=== PATIENT | female | born 1955 | race Caucasian/White ===

== ENCOUNTER 2018-11-02 16:53 | Inpatient (IN) | payer MEDICAID ==
[~2018-11-02] VITALS: Ht 154.9 cm; Wt 68.5 kg
--- NOTE | 2018-11-02 17:26 | ERD ---
ER Documentation Chief Complaint Chief Complaint chest pain & dizziness since monday HPI 63-year-old woman complaining of intermittent sharp chest pain shortness of breath, dyspnea on exertion for the last 4-5 days she also feels dizzy. She denies blood per rectum or melena, no fevers or chills, no cough, no headache or blurry vision. ROS All systems reviewed and are negative except as per history of present illness. Medications Home Meds No Active Prescriptions or Reported Meds Allergies Allergies: Coded Allergies: No Known Allergy (Unverified , 11/02/18) FmHx Family History: No diabetes Physical Exam Vitals Vital Signs Date Temp Pulse Resp B/P (MAP) Pulse Ox O2 O2 Flow FiO2 Time Delivery Rate 11/02/18 91 20 125/84 99 Nasal 2.0 18:48 (98) Cannula 11/02/18 89 23 123/91 98 Nasal 2.0 18:08 (102) Cannula 11/02/18 141 18 117/95 100 Room Air 17:44 (102) 11/02/18 98.2 161 18 155/94 98 17:01 (114) Physical Exam GENERAL: Well-developed, appears dyspneic, afebrile HEENT: Pale conjunctive a, no cervical spine tenderness or step-off deformities, no goiter, no jaundice or icterus, extraocular movements intact without pain. No submandibular induration, and no pharyngeal erythema NEURO: Alert and oriented 3, cranial nerves II through XII intact bilaterally, pupils equal round reactive to light, no focal deficits or facial asymmetry, sensation intact distally Strength 5/5 in upper and lower extremities bilaterally CARDIAC: Tachycardic, no murmurs rubs or gallops LUNGS: Poor breath sounds bilaterally, no crackles wheezing or stridor ABDOMEN: Soft nontender, no guarding, no rigidity, no rebound, no psoas sign no obturator sign. Normoactive bowel sounds SKIN: Warm and dry to touch, no abrasions, contusions, or hematomas, no lacerations, no ecchymosis, no target lesions, and without ulcers EXTREMITIES: No clubbing cyanosis, 1+ pitting edema in the lower extremities bilaterally, calves are bilaterally symmetrical, no Homans sign, no popliteal cord sign. Distal pulses equal and bilateral PSYCH: Normal affect without agitation or irritability Result Diagram: 4/5/19 1753 4/5/19 1753 Results 24 hrs Laboratory Tests Test 11/02/18 17:53 White Blood Count 8.5 10^3/ul Red Blood Count 3.03 10^6/ul Hemoglobin 8.6 g/dl Hematocrit 26.8 % Mean Corpuscular Volume 88.4 fl Mean Corpuscular Hemoglobin 28.4 pg Mean Corpuscular Hemoglobin Concent 32.1 g/dl Red Cell Distribution Width 14.6 % Platelet Count 192 10^3/UL Mean Platelet Volume 12.4 fl Immature Granulocytes % 0.500 % Neutrophils % 63.8 % Lymphocytes % 27.9 % Monocytes % 6.4 % Eosinophils % 0.9 % Basophils % 0.5 % Nucleated Red Blood Cells % 0.4 /100WBC Immature Granulocytes # 0.040 10^3/ul Neutrophils # 5.4 10^3/ul Lymphocytes # 2.4 10^3/ul Monocytes # 0.5 10^3/ul Eosinophils # 0.1 10^3/ul Basophils # 0.0 10^3/ul Nucleated Red Blood Cells # 0.0 10^3/ul Sodium Level 139 mmol/L Potassium Level 4.0 mmol/L Chloride Level 104 mmol/L Carbon Dioxide Level 25 mmol/L Anion Gap 10 Blood Urea Nitrogen 11 mg/dl Creatinine 0.61 mg/dl Est Glomerular Filtrat Rate mL/min > 60 mL/min Glucose Level 111 mg/dl Hemoglobin A1c 5.8 % Calcium Level 8.7 mg/dl Iron Level 36 ug/dl Total Iron Binding Capacity 362 ug/dl Percent Iron Saturation 10 % SAT Total Bilirubin 0.1 mg/dl Direct Bilirubin 0.00 mg/dl Indirect Bilirubin 0.1 mg/dl Aspartate Amino Transf (AST/SGOT) 52 IU/L Alanine Aminotransferase (ALT/SGPT) 45 IU/L Alkaline Phosphatase 75 IU/L Troponin I 0.020 ng/ml B-Type Natriuretic Peptide 3020 PG/ML Total Protein 6.8 g/dl Albumin 3.9 g/dl Globulin 2.90 g/dl Albumin/Globulin Ratio 1.34 Lipase 140 U/L Thyroid Stimulating Hormone (TSH) 2.720 MIU/L Free Thyroxine 1.13 ng/dl Free Triiodothyronine (T3) pg/mL 4.29 pg/ml Current Medications Medications Dose Sig/Tavia Start Time Status Last (Trade) Ordered Route PRN Stop Time Admin Dose Reason Admin Diltiazem 20 mg ONCE ONCE 11/02/18 DC 11/02/18 HCl IV 18:00 11/02/18 17:56 (Cardizem Iv) 18:01 Aspirin 162 mg ONCE ONCE 11/02/18 DC 11/02/18 (Aspirin) PO 18:00 11/02/18 17:57 18:01 Procedures/MDM IV line was established 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 Patient was afebrile EKG performed, read by me revealed an atrial fibrillation with rapid ventricular rate at 147 bpm, normal axis, narrow QRS complex, no concerning ST elevations or depressions noted I administered diltiazem 20 mg IV x1. EKG performed after diltiazem therapy revealed an atrial fibrillation rate controlled at 89 bpm, normal axis, narrow QRS complex, no concerning ST elevations or depressions noted 1 view chest x-ray performed, read by me revealed cardiomegaly and bilateral pulmonary edema, no acute infiltrates, no pneumothorax. CBC revealed anemia with a hemoglobin of 8.6, electrolytes are unremarkable, liver function tests normal, troponin negative, BNP elevated at 3000 I administered aspirin 162 mg p.o. for cardioprotective measures and furosemide 40 mg IV for CHF. I also ordered transfusion 1 unit PRBC IV over 2 hours for symptomatic anemia Critical Care: Time: 50 minutes, this was time separate from other billable procedures. Treatments/Evaluations: Close monitoring and treatment of unstable vital signs, cardiorespiratory, and neurologic status, while maintaining tight balance of fluid, respiratory, and cardiac interventions. Patient admitted to telemetry setting for continued medical management and cardiology consultation. Urinalysis was equivocal and I will defer to the admitting team to initiate antibiotics if indicated although patient has no genitourinary complaints. Departure Diagnosis: Primary Impression: Atrial fibrillation with RVR Additional Impressions: Symptomatic anemia CHF (congestive heart failure) Heart failure type: systolic Heart failure chronicity: acute Qualified Codes: I50.21 - Acute systolic (congestive) heart failure Condition: Serious BRITNEY MARQUEZ MD Nov 02, 2018 17:26
[2018-11-02] MEDS ORDERED: ASPIRIN 81 MG TAB PO ONE (18:00)
[2018-11-02] MEDS ORDERED: DILTIAZEM 25 MG INJ IV ONE (18:00)
--- NOTE | 2018-11-02 19:55 | HP ---
Date/Time of Note Date/Time of Note DATE: 11/02/18 TIME: 19:55 Assessment/Plan VTE Prophylaxis SCD applied (from Nsg): Yes Pharmacological prophylaxis: NA/contraindicated Pharm contraindication: low risk/ambulating Lines/Catheters IV Catheter Type (from Nrsg): Saline Lock Assessment/Plan Hospital Course This is a 63-year female being admitted to the telemetry floor for: #1 rapid A. fib with RVR, new onset: Etiology unknown at the current time. Will check TSH, hemoglobin A 1C, lipid panel, ethanol level and urine drug screen until patient denies any history of this. We will get an echocardiogram to assess heart morphology. PRN Lopressor 2.5 IV for heart rate greater than 115. Chadsvasc score 1: no asa, given anemia, but will defer to cardiology for recs. #2 Symptomatic anemia: Hemoglobin is 8.6. She did receive a unit of 1 unit of PRBCs in the ED. Denies bleeding. Will check iron stores #3 hyperlipidemia, check lipid panel #4 elevated BNP: Approximately 3000. Mild congestion on x-ray, will give her a dose of Lasix after blood transfusion. Check echocardiogram consult cardiology #5 DVT GI prophylaxis: SCDs, no GI prophylaxis indicated Further treatment strategy will be implemented as per the clinical course Result Diagram: 11/02/18 1753 11/02/18 1753 Results 24hrs Laboratory Tests Test 11/02/18 17:53 White Blood Count 8.5 Red Blood Count 3.03 L Hemoglobin 8.6 L Hematocrit 26.8 L Mean Corpuscular Volume 88.4 Mean Corpuscular Hemoglobin 28.4 L Mean Corpuscular Hemoglobin Concent 32.1 Red Cell Distribution Width 14.6 H Platelet Count 192 Mean Platelet Volume 12.4 H Immature Granulocytes % 0.500 H Neutrophils % 63.8 Lymphocytes % 27.9 Monocytes % 6.4 Eosinophils % 0.9 Basophils % 0.5 Nucleated Red Blood Cells % 0.4 H Immature Granulocytes # 0.040 H Neutrophils # 5.4 Lymphocytes # 2.4 Monocytes # 0.5 Eosinophils # 0.1 Basophils # 0.0 Nucleated Red Blood Cells # 0.0 Sodium Level 139 Potassium Level 4.0 Chloride Level 104 Carbon Dioxide Level 25 Anion Gap 10 Blood Urea Nitrogen 11 Creatinine 0.61 Est Glomerular Filtrat Rate mL/min > 60 Glucose Level 111 Calcium Level 8.7 Total Bilirubin 0.1 L Direct Bilirubin 0.00 Indirect Bilirubin 0.1 Aspartate Amino Transf (AST/SGOT) 52 H Alanine Aminotransferase (ALT/SGPT) 45 Alkaline Phosphatase 75 Troponin I 0.020 B-Type Natriuretic Peptide 3020 H Total Protein 6.8 Albumin 3.9 Globulin 2.90 Albumin/Globulin Ratio 1.34 Lipase 140 Thyroid Stimulating Hormone (TSH) 2.720 Free Thyroxine 1.13 Free Triiodothyronine (T3) pg/mL 4.29 HPI/ROS Admit Date/Time Admit Date/Time Hx of Present Illness Chief complaint: Dizziness, chest pain times 5 days This is a 63-year-old woman complaining of intermittent sharp chest pain shortness of breath, dyspnea on exertion for the last 4-5 days she also feels dizzy. Patient also reports that she had a near syncopal episode at home. She reports some palpitations as well. She denies blood per rectum or melena, no fevers or chills, no cough, no headache or blurry vision. Allergies: NKDA Medications: See RICHELLE STONE Const: As per HPI Eyes : No pain discharge or redness or change in visual acuity ENT: No pain, sore throat, congestion, congestion, dysphagia or discharge Respiratory: No shortness of breath, cough, sputum, wheezing, or pleuritic pain Cardiovascular: N as per HPI GI : no change in appetite, abdominal pain, nausea, vomiting, diarrhea, constipation, or change in the color his stool Genitourinary: No dysuria, hematuria, flank pain , discharge or CVA tenderness Musculoskeletal: No joint pain, back pain, neck pain, restricted range of motion in neck or joints Skin: No rash, bruising or hives Neuro: No headache, dizziness, syncope, seizure, focal weakness Endocrine: No polyuria, polydipsia, temperature intolerance Psych: No hallucination, depression, anxiety or suicidal ideation PMH/Family/Social Past Medical History hld Medications Current Medications IV Flush (NS 3 ml) 3 ml PER PROTOCOL IV ; Start 11/02/18 at 20:00 Ondansetron HCl (Zofran Inj) 4 mg Q6H PRN IV NAUSEA/VOMITING; Start 11/02/18 at 20:00 Nitroglycerin (Nitroglycerin (Sl Tab) 0.4 Mg) 1 tab Q5M PRN SL .CHEST PAIN; Start 11/02/18 at 20:00 Acetaminophen (Tylenol Tab) 650 mg Q6H PRN PO .PAIN 1-3 OR TEMP; Start 11/02/18 at 20:00 Docusate Sodium (Colace) 100 mg Q12H PRN PO .CONSTIPATION; Start 11/02/18 at 20:00 Magnesium Hydroxide (Milk Of Mag) 30 ml DAILY PRN PO .CONSTIPATION; Start 11/02/18 at 20:00 Famotidine (Pepcid) 20 mg Q12 PO ; Start 11/02/18 at 21:00 Furosemide (Lasix) 40 mg ONCE ONCE IV ; Start 11/02/18 at 20:00; Stop 11/02/18 at 20:01 Coded Allergies: No Known Drug Allergies (Verified Allergy, Unknown, 11/03/18) Past Surgical History x 2, lisa, Family History Significant Family History: no pertinent family hx Social History Alcohol Use: none Smoking Status: Never smoker Drug Use: none Exam/Review of Systems Vital Signs Vitals Vital Signs Date Temp Pulse Resp B/P (MAP) Pulse Ox O2 O2 Flow FiO2 Time Delivery Rate 11/02/18 91 20 125/84 99 Room Air 18:48 (98) 11/02/18 2.0 18:08 11/02/18 98.2 17:01 Exam Exam General: Patient currently lying in bed he does not appear to be in any acute distress but she does appear fatigued HEENT: Atraumatic, normocephalic. The pupils are equal, round and reactive. Extraocular motor are intact Neck: Supple with full range of motion. No rigidity or meningismus Chest: Nontender Lungs: Clear to auscultation bilaterally no crackles rales or wheezing Heart: Irregularly irregular, rate controlled Abdomen: Soft , nontender, nondistended , bowel sounds are present. No guarding no rebound tenderness , No masses or organomegaly. No costovertebral temporal angle mass Extremities: Normal to inspection, no edema no cyanosis Neurologic: Normal mental status, speech normal, cranial nerves II through XII are intact, motor and sensory are intact, Additional Comments EKG atrial fibrillation with rapid ventricular rate at 147 bpm, normal axis, narrow QRS complex, no concerning ST elevations or depressions noted PROCEDURE: XR Chest. CLINICAL INDICATION: Chest pain TECHNIQUE: Single frontal radiograph of the chest. COMPARISON: No prior FINDINGS: Prominence of the pulmonary vasculature suggestive of mild congestion. Mild peribronchial thickening suggestive of small airways disease. No pleural effusion. No pneumothorax. Mild cardiomegaly. IMPRESSION: Prominence of the pulmonary vasculature suggestive of mild congestion. Mild peribronchial thickening suggestive of small airways disease. RPTAT: AADD .Charles Palacio MD, MD Date Time Electronically viewed and signed by .Charles Palacio MD, MD on 11/02/2018 19:36 .B/ CC: BRITNEY MARQUEZ MD [id number] EMERITA SETH Nov 02, 2018 19:55
[2018-11-02] MEDS ORDERED: ACETAMINOPHEN 325 MG TAB PO PRN (20:00)
[2018-11-02] MEDS ORDERED: FUROSEMIDE 40 MG INJ IV ONE (20:00)
[2018-11-02] MEDS ORDERED: NITROGLYCERIN (SL) 0.4 MG TAB SL PRN (20:00)
[2018-11-02] MEDS ORDERED: ONDANSETRON 4 MG INJ IV PRN (20:00)
[2018-11-02] MEDS ORDERED: MAGNESIUM HYDROXIDE 30ML CUP PO PRN (20:00)
[2018-11-02] MEDS ORDERED: NACL 0.9% 3 ML SYG IV SCH (20:00)
[2018-11-02] MEDS ORDERED: DOCUSATE SODIUM 100 MG CAP PO PRN (20:00)
[2018-11-02] MEDS: FAMOTIDINE 20 MG TAB PO SCH (20:13)
[2018-11-02] MEDS ORDERED: LEVALBUTEROL (NEB) 1.25 MG/0.5 ML AMP HHN PRN (22:30)
[2018-11-02] MEDS ORDERED: MAGNESIUM SULFATE 1 GM/D5W 100 ML IVPB ONE (22:30)
[2018-11-02 23:15] VITALS: BP 113/71; PULSE 75; RESP 18
[2018-11-03] VITALS (13 sets, daily range): BP systolic 91–195; BP diastolic 58–145; PULSE 53–138; RESP 18–19; Ht 154.9 cm; Wt 68.5 kg
[2018-11-03] MEDS: METOPROLOL 5 MG INJ IV PRN ×2 (06:16→08:06)
[2018-11-03] MEDS: FAMOTIDINE 20 MG TAB PO SCH ×2 (08:05→20:35)
--- NOTE | 2018-11-03 09:34 | PN ---
Date/Time of Note Date/Time of Note DATE: 11/03/18 TIME: 09:33 Assessment/Plan VTE Prophylaxis SCD applied (from Nsg): Yes Pharmacological prophylaxis: LMWH Lines/Catheters IV Catheter Type (from Nrsg): Saline Lock Urinary Cath still in place: No Assessment/Plan Hospital Course SUBJECTIVE: Denies any chest pain at this time. OBJECTIVE: Physical Exam General: Adequately build 63 year-old female lying in bed in no apparent distress. HEENT: Normocephalic, atraumatic. Eyes: Anicteric sclerae, conjunctivae clear. ENT: Nasal septum midline, oral mucosa moist. Neck supple, JVD noticed. Respiratory: Bilaterally diminished breath sounds. No use of accessory muscles of respiration. Left basilar rales. Cardiovascular: S1, S2 heard. Irregularly irregular rhythm. Abdomen: Soft, nontender, and nondistended. Bowel sounds positive in all 4 quadrants. Genitourinary: Deferred. Extremities: No cyanosis, no clubbing, no edema. Peripheral pulses palpable. Neurologic: Cranial nerves II through XII grossly intact. The patient is awake, alert, and oriented. Skin: Normal skin turgor. No skin rashes. Labs & Vitals per chart ASSESSMENT & PLAN This is a 63-year-old female who denies any significant past medical history. The patient verbalized that she has been having chest pain for the past 1 week. The patient came to the emergency room on 11/02/2018 with complaints of chest pain, palpitations, and dyspnea. The patient denied any fevers or chills. The patient was noticed to be in atrial fibrillation with rapid ventricular response in the emergency room. The patient was treated with IV Cardizem with improvement in the patient's heart rate. The patient's troponins were negative. The patient was also noticed to have normocytic anemia. However, the patient denied any active bleeding. 1. Chest pain. -To rule out ACS. -Serial troponins will be ordered. -Pending 2D echocardiogram. -Continue aspirin. -Obtain cardiology consult. 2. Atrial fibrillation with rapid ventricular response. -Questionable new onset. -Rate controlled with beta-blockers. -Anti-coagulation will be deferred to cardiology. 3. Normocytic anemia. -Status post 1 unit of PRBC transfusion in the emergency room. -Denies any history of gastric ulcers. -Denies any obvious bleeding. -Iron panel showing no iron deficiency. -Obtain stool for OB. -Monitor H&H closely. 4. Possible underlying congestive heart failure, systolic versus diastolic dysfunction -Continue diuresis as clinically indicated -Pending 2D echocardiogram. 5. Prediabetes -Hemoglobin A1c 5.8. -Monitor glycemic trends. 6. Fluids, electrolytes, and nutrition. -Low-cholesterol diet. 7. DVT prophylaxis. -Subcutaneous Lovenox. 8. Plan. -Continue aspirin. -Continue beta-blockers. -Obtain cardiology consult. The patient was seen in collaboration with Dr. Foster. Result Diagram: 11/03/18 0702 11/03/18 0702 Results 24hrs Laboratory Tests Test 11/02/18 17:53 11/02/18 22:25 11/03/18 07:02 White Blood Count 8.5 7.1 Red Blood Count 3.03 L 3.61 L Hemoglobin 8.6 L 10.3 L Hematocrit 26.8 L 31.9 L Mean Corpuscular Volume 88.4 88.4 Mean Corpuscular Hemoglobin 28.4 L 28.5 L Mean Corpuscular Hemoglobin Concent 32.1 32.3 Red Cell Distribution Width 14.6 H 14.6 H Platelet Count 192 204 Mean Platelet Volume 12.4 H 13.0 H Immature Granulocytes % 0.500 H 0.400 Neutrophils % 63.8 65.3 Lymphocytes % 27.9 24.0 Monocytes % 6.4 8.6 Eosinophils % 0.9 1.3 Basophils % 0.5 0.4 Nucleated Red Blood Cells % 0.4 H 0.0 Immature Granulocytes # 0.040 H 0.030 Neutrophils # 5.4 4.7 Lymphocytes # 2.4 1.7 Monocytes # 0.5 0.6 Eosinophils # 0.1 0.1 Basophils # 0.0 0.0 Nucleated Red Blood Cells # 0.0 0.0 Sodium Level 139 141 Potassium Level 4.0 3.8 Chloride Level 104 105 Carbon Dioxide Level 25 28 Anion Gap 10 8 Blood Urea Nitrogen 11 9 Creatinine 0.61 0.67 Est Glomerular Filtrat Rate mL/min > 60 > 60 Glucose Level 111 102 Hemoglobin A1c 5.8 Calcium Level 8.7 8.8 Iron Level 36 Total Iron Binding Capacity 362 Percent Iron Saturation 10 L Total Bilirubin 0.1 L Direct Bilirubin 0.00 Indirect Bilirubin 0.1 Aspartate Amino Transf (AST/SGOT) 52 H Alanine Aminotransferase (ALT/SGPT) 45 Alkaline Phosphatase 75 Troponin I 0.020 B-Type Natriuretic Peptide 3020 H Total Protein 6.8 Albumin 3.9 Globulin 2.90 Albumin/Globulin Ratio 1.34 Lipase 140 Thyroid Stimulating Hormone (TSH) 2.720 Free Thyroxine 1.13 Free Triiodothyronine (T3) pg/mL 4.29 Urine Color COLORLESS Urine Clarity CLEAR Urine pH 7.0 Urine Specific Olla 1.003 Urine Ketones NEGATIVE Urine Nitrite NEGATIVE Urine Bilirubin NEGATIVE Urine Urobilinogen NEGATIVE Urine Leukocyte Esterase 1+ H Urine Microscopic RBC 1 Urine Microscopic WBC 6 H Urine Hemoglobin NEGATIVE Urine Glucose NEGATIVE Urine Total Protein NEGATIVE Magnesium Level 2.4 Triglycerides Level 122 Cholesterol Level 175 LDL Cholesterol, Calculated 119 HDL Cholesterol 32 L Cholesterol/HDL Ratio 5.4 Exam/Review of Systems Exam Vitals Vital Signs Date Temp Pulse Resp B/P (MAP) Pulse Ox O2 O2 Flow FiO2 Time Delivery Rate 11/03/18 118 08:04 11/03/18 97.9 18 112/63 98 Nasal 07:54 (79) Cannula 11/03/18 2.0 04:10 Results Results 24hrs Laboratory Tests Test 11/02/18 17:53 11/02/18 22:25 11/03/18 07:02 White Blood Count 8.5 7.1 Red Blood Count 3.03 L 3.61 L Hemoglobin 8.6 L 10.3 L Hematocrit 26.8 L 31.9 L Mean Corpuscular Volume 88.4 88.4 Mean Corpuscular Hemoglobin 28.4 L 28.5 L Mean Corpuscular Hemoglobin Concent 32.1 32.3 Red Cell Distribution Width 14.6 H 14.6 H Platelet Count 192 204 Mean Platelet Volume 12.4 H 13.0 H Immature Granulocytes % 0.500 H 0.400 Neutrophils % 63.8 65.3 Lymphocytes % 27.9 24.0 Monocytes % 6.4 8.6 Eosinophils % 0.9 1.3 Basophils % 0.5 0.4 Nucleated Red Blood Cells % 0.4 H 0.0 Immature Granulocytes # 0.040 H 0.030 Neutrophils # 5.4 4.7 Lymphocytes # 2.4 1.7 Monocytes # 0.5 0.6 Eosinophils # 0.1 0.1 Basophils # 0.0 0.0 Nucleated Red Blood Cells # 0.0 0.0 Sodium Level 139 141 Potassium Level 4.0 3.8 Chloride Level 104 105 Carbon Dioxide Level 25 28 Anion Gap 10 8 Blood Urea Nitrogen 11 9 Creatinine 0.61 0.67 Est Glomerular Filtrat Rate mL/min > 60 > 60 Glucose Level 111 102 Hemoglobin A1c 5.8 Calcium Level 8.7 8.8 Iron Level 36 Total Iron Binding Capacity 362 Percent Iron Saturation 10 L Total Bilirubin 0.1 L Direct Bilirubin 0.00 Indirect Bilirubin 0.1 Aspartate Amino Transf (AST/SGOT) 52 H Alanine Aminotransferase (ALT/SGPT) 45 Alkaline Phosphatase 75 Troponin I 0.020 B-Type Natriuretic Peptide 3020 H Total Protein 6.8 Albumin 3.9 Globulin 2.90 Albumin/Globulin Ratio 1.34 Lipase 140 Thyroid Stimulating Hormone (TSH) 2.720 Free Thyroxine 1.13 Free Triiodothyronine (T3) pg/mL 4.29 Urine Color COLORLESS Urine Clarity CLEAR Urine pH 7.0 Urine Specific Olla 1.003 Urine Ketones NEGATIVE Urine Nitrite NEGATIVE Urine Bilirubin NEGATIVE Urine Urobilinogen NEGATIVE Urine Leukocyte Esterase 1+ H Urine Microscopic RBC 1 Urine Microscopic WBC 6 H Urine Hemoglobin NEGATIVE Urine Glucose NEGATIVE Urine Total Protein NEGATIVE Magnesium Level 2.4 Triglycerides Level 122 Cholesterol Level 175 LDL Cholesterol, Calculated 119 HDL Cholesterol 32 L Cholesterol/HDL Ratio 5.4 Medications Medication Current Medications IV Flush (NS 3 ml) 3 ml PER PROTOCOL IV ; Start 11/02/18 at 20:00 Ondansetron HCl (Zofran Inj) 4 mg Q6H PRN IV NAUSEA/VOMITING; Start 11/02/18 at 20:00 Nitroglycerin (Nitroglycerin (Sl Tab) 0.4 Mg) 1 tab Q5M PRN SL .CHEST PAIN; Start 11/02/18 at 20:00 Acetaminophen (Tylenol Tab) 650 mg Q6H PRN PO .PAIN 1-3 OR TEMP; Start 11/02/18 at 20:00 Docusate Sodium (Colace) 100 mg Q12H PRN PO .CONSTIPATION; Start 11/02/18 at 20:00 Magnesium Hydroxide (Milk Of Mag) 30 ml DAILY PRN PO .CONSTIPATION; Start 11/02/18 at 20:00 Famotidine (Pepcid) 20 mg Q12 PO Last administered on 11/03/18at 08:05; Admin Dose 20 MG; Start 11/02/18 at 21:00 Levalbuterol (Xopenex Neb) 1.25 mg Q4H RESP THERAPY PRN HHN SHORTNESS OF BREATH; Start 11/02/18 at 22:30 Metoprolol Tartrate (Lopressor) 2.5 mg Q6H PRN IV AFIB WITH HR GREATER THAN 115 Last administered on 11/03/18at 08:06; Admin Dose 2.5 MG; Start 11/03/18 at 05:30 Aspirin (Aspirin) 81 mg DAILY PO ; Start 11/03/18 at 09:30 TOMMIE ZARAGOZA NP Nov 03, 2018 09:34
[2018-11-03] MEDS ORDERED: METOPROLOL 25 MG TAB PO SCH (10:00)
[2018-11-03] MEDS ORDERED: DIGOXIN 500 MCG INJ IV ONE (10:00)
[2018-11-03] MEDS: ASPIRIN 81 MG TAB PO SCH (10:45)
[2018-11-03] MEDS: ENOXAPARIN 40 MG/0.4 ML SYG SC SCH (11:05)
--- NOTE | 2018-11-03 12:45 | RADRPT ---
Echocardiogram Report Patient Name: MIRELLA RANDALLPatient ID: [id number] : 1955 (63y 3m)Study Date: 11/03/2018 10:44:14 AM Gender: FAccession #: [id number] Tech: Herbert Allen [facility] Location: [facility] Ref.Physician: NEWTON YANEZ Height(Cm): BSA: Weight(Kg): Quality: AdequateAccount #: Procedures: Echocardiographic Report: Transthoracic echocardiogram with complete 2D, M-Mode, and doppler examination. Indications: Evaluate Left Ventricular function, and Atrial Fibrillation. Measurements: 2D/M Mode Doppler Measurement Value Normal Range Measurement Value Normal Range LVIDd 2D 3.6 [ 3.8 - 5.2 ] cm AV Peak Rafael 1.6 [ 100.0 - 170.0 ] cm/sec LVIDs 2D 2.4 [ 2.2 - 3.5 ] cm AV Peak PG 10.0 [ 2.0 - 9.0 ] mmHg LVPWd 2D 1.0 [ 0.6 - 0.9 ] cm AI Peak PG 62.0 mmHg IVSd 2D 0.8 [ 0.6 - 0.9 ] cm AI Peak Rafael 3.9 cm/sec AoR Diam 2D 2.6 [ 2.3 - 3.1 ] cm AI PHT 655.0 msec EDV 2D 54.1 [ 46.0 - 106.0 ] ml LVOT Peak Rafael 0.9 [ 70.0 - 110.0 ] cm/sec ESV 2D 19.7 [ 14.0 - 42.0 ] ml LVOT Peak PG 3.0 [ 2.0 - 6.0 ] mmHg EF 2D 63.6 [ 54.0 - 74.0 ] percent MV E Peak Rafael 1.5 [ 60.0 - 130.0 ] cm/sec LA Dimen 2D 3.8 [ 2.7 - 3.8 ] cm Med E` Rafael 0.1 cm/sec TR Peak Rafael 2.2 [ 100.0 - 280.0 ] cm/sec TR Peak PG 19.0 mmHg RVSP 19.0 [ 10.0 - 36.0 ] mmHg RA Pressure 3.0 mmHg Findings: Left Ventricle: Normal left ventricular systolic function. Normal left ventricular cavity size. Normal left ventricular wall thickness. Ejection fraction is visually estimated at 55 %. Right Ventricle: Normal right ventricular size. Left Atrium: There is severe enlargement of left atrium. Right Atrium: There is moderate enlargement of right atrium. Atrial Septum: Normal atrial septum. Ventricular septum: Normal/intact ventricular septum. Mitral Valve: Moderate mitral annular calcification. Mild mitral valve regurgitation. Aortic Valve: Aortic sclerosis without significant stenosis. Mild to moderate aortic valve regurgitation. Tricuspid Valve: Normal appearance of the tricuspid valve. Unable to obtain RVSP due to minimal presence of tricuspid regurgitation. There is mild tricuspid regurgitation. Pulmonic Valve: Normal pulmonic valve appearance. No evidence of pulmonic regurgitation. Pericardium: Normal pericardium with no significant pericardial effusion. Aorta: Normal aortic root. There is moderate aortic root calcification. IVC: The IVC is not well visualized. Conclusions: Normal left ventricular systolic function. Normal left ventricular cavity size. Normal left ventricular wall thickness. Ejection fraction is visually estimated at 55 %. Aortic sclerosis without significant stenosis. Mild to moderate aortic valve regurgitation. There is moderate aortic root calcification. There is severe enlargement of left atrium. Unable to obtain RVSP due to minimal presence of tricuspid regurgitation. The IVC is not well visualized. Electronically Signed By: Magno Friedman 2018-11-03 12:45:08 PDT
--- NOTE | 2018-11-03 18:28 | CONS ---
Assessment/Plan Assessment/Plan Hospital Course (Demo Recall) Atrial fibrillation: unknown duration but possible new onset. CHADSVASC is 0 so no anticoagulation indicated especially with anemia. Rates now controlled Anemia: no active bleeding. With abdominal pain, consider PUD "Chest pain": pt denies. Trops negative. Echo with preserved EF -diltiazem 120mg daily -if EGD/colo indicated, ok from cardiac perspective Consultation Date/Type/Reason Admit Date/Time Date of Consultation: Nov 03, 2018 Type of Consult Cardiology Reason for Consultation afib with RVR Requesting Provider: EMERITA SETH Date/Time of Note DATE: 11/03/18 TIME: 18:20 Hx of Present Illness 63 yo F with no past medical history who presented with reported chest pain and palpitations and was found to have afib with RVR and anemia. She was given 1 unit PRBCs. I used an it support technician for clarification of history. Pt notes that her main complaint was LUQ abdominal pain, palpitations, and weakness. She did not have chest pain. No SOB. Abdominal pain has resolved. No melena or rectal bleeding. No h/o cardiac disease/arrhythmias. Pt is a very poor historian and goes off on tangents during the interview. per hPI Past Medical History per hPI Home Meds No Active Prescriptions or Reported Meds Medications Current Medications IV Flush (NS 3 ml) 3 ml PER PROTOCOL IV ; Start 11/02/18 at 20:00 Ondansetron HCl (Zofran Inj) 4 mg Q6H PRN IV NAUSEA/VOMITING; Start 11/02/18 at 20:00 Nitroglycerin (Nitroglycerin (Sl Tab) 0.4 Mg) 1 tab Q5M PRN SL .CHEST PAIN; Start 11/02/18 at 20:00 Acetaminophen (Tylenol Tab) 650 mg Q6H PRN PO .PAIN 1-3 OR TEMP; Start 11/02/18 at 20:00 Docusate Sodium (Colace) 100 mg Q12H PRN PO .CONSTIPATION; Start 11/02/18 at 20:00 Magnesium Hydroxide (Milk Of Mag) 30 ml DAILY PRN PO .CONSTIPATION; Start 11/02/18 at 20:00 Famotidine (Pepcid) 20 mg Q12 PO Last administered on 11/03/18at 08:05; Admin Dose 20 MG; Start 11/02/18 at 21:00 Levalbuterol (Xopenex Neb) 1.25 mg Q4H RESP THERAPY PRN HHN SHORTNESS OF BREATH; Start 11/02/18 at 22:30 Metoprolol Tartrate (Lopressor) 2.5 mg Q6H PRN IV AFIB WITH HR GREATER THAN 115 Last administered on 11/03/18at 08:06; Admin Dose 2.5 MG; Start 11/03/18 at 05:30 Aspirin (Aspirin) 81 mg DAILY PO Last administered on 11/03/18at 10:45; Admin Dose 81 MG; Start 11/03/18 at 09:30 Enoxaparin Sodium (Lovenox) 40 mg DAILY SC Last administered on 11/03/18at 11:05; Admin Dose 40 MG; Start 11/03/18 at 10:00 Metoprolol Tartrate (Lopressor) 12.5 mg BID PO Last administered on 11/03/18at 10:46; Admin Dose 12.5 MG; Start 11/03/18 at 10:00 Allergies: Coded Allergies: No Known Drug Allergies (Verified Allergy, Unknown, 11/03/18) Social History Alcohol Use: none Smoking Status: Never smoker Drug Use: none Exam/Review of Systems Vital Signs Vitals Vital Signs Date Temp Pulse Resp B/P (MAP) Pulse Ox O2 O2 Flow FiO2 Time Delivery Rate 11/03/18 99 16:09 11/03/18 97.7 18 91/67 (75) 97 Room Air 15:43 11/03/18 2.0 04:10 Exam Constitutional: alert, oriented, well developed Psych: no complaints Head: normocephalic, atraumatic Neck: supple; No jvd Respiratory: clear to auscultation; No crackles/rales Cardiovascular: No regular rate and rhythm (IRIR), No edema, No systolic murmur Gastrointestinal: soft, non-tender; No distended Neurological: nl mental status, nl speech Labs Result Diagram: 11/03/18 0702 11/03/18 0702 Results 24hrs Laboratory Tests Test 11/02/18 22:25 11/03/18 07:02 11/03/18 10:30 11/03/18 10:54 Urine Color COLORLESS Urine Clarity CLEAR Urine pH 7.0 Urine Specific [place] 1.003 Urine Ketones NEGATIVE Urine Nitrite NEGATIVE Urine Bilirubin NEGATIVE Urine Urobilinogen NEGATIVE Urine Leukocyte Esterase 1+ H Urine Microscopic RBC 1 Urine Microscopic WBC 6 H Urine Hemoglobin NEGATIVE Urine Glucose NEGATIVE Urine Total Protein NEGATIVE White Blood Count 7.1 Red Blood Count 3.61 L Hemoglobin 10.3 L Hematocrit 31.9 L Mean Corpuscular Volume 88.4 Mean Corpuscular 28.5 L Hemoglobin Mean Corpuscular 32.3 Hemoglobin Concent Red Cell Distribution 14.6 H Width Platelet Count 204 Mean Platelet Volume 13.0 H Immature Granulocytes % 0.400 Neutrophils % 65.3 Lymphocytes % 24.0 Monocytes % 8.6 Eosinophils % 1.3 Basophils % 0.4 Nucleated Red Blood 0.0 Cells % Immature Granulocytes # 0.030 Neutrophils # 4.7 Lymphocytes # 1.7 Monocytes # 0.6 Eosinophils # 0.1 Basophils # 0.0 Nucleated Red Blood 0.0 Cells # Sodium Level 141 Potassium Level 3.8 Chloride Level 105 Carbon Dioxide Level 28 Anion Gap 8 Blood Urea Nitrogen 9 Creatinine 0.67 Est Glomerular Filtrat > 60 Rate mL/min Glucose Level 102 Calcium Level 8.8 Magnesium Level 2.4 Triglycerides Level 122 Cholesterol Level 175 LDL Cholesterol, 119 Calculated HDL Cholesterol 32 L Cholesterol/HDL Ratio 5.4 Urine Opiates Screen Negative Urine Barbiturates Negative Urine Amphetamines Negative Screen Urine Benzodiazepines Negative Screen Urine Cocaine Screen Negative Urine Cannabinoids Negative Creatine Kinase 46 Creatine Kinase Index 0.8 Creatinine Kinase MB 0.37 (Mass) Troponin I < 0.012 Ethyl Alcohol Level < 10.0 H Test 11/03/18 13:12 Creatine Kinase 51 Creatine Kinase Index 0.7 Creatinine Kinase MB 0.37 (Mass) Troponin I < 0.012 Medications Medications Current Medications IV Flush (NS 3 ml) 3 ml PER PROTOCOL IV ; Start 11/02/18 at 20:00 Ondansetron HCl (Zofran Inj) 4 mg Q6H PRN IV NAUSEA/VOMITING; Start 11/02/18 at 20:00 Nitroglycerin (Nitroglycerin (Sl Tab) 0.4 Mg) 1 tab Q5M PRN SL .CHEST PAIN; Start 11/02/18 at 20:00 Acetaminophen (Tylenol Tab) 650 mg Q6H PRN PO .PAIN 1-3 OR TEMP; Start 11/02/18 at 20:00 Docusate Sodium (Colace) 100 mg Q12H PRN PO .CONSTIPATION; Start 11/02/18 at 20:00 Magnesium Hydroxide (Milk Of Mag) 30 ml DAILY PRN PO .CONSTIPATION; Start 11/02/18 at 20:00 Famotidine (Pepcid) 20 mg Q12 PO Last administered on 11/03/18at 08:05; Admin Dose 20 MG; Start 11/02/18 at 21:00 Levalbuterol (Xopenex Neb) 1.25 mg Q4H RESP THERAPY PRN HHN SHORTNESS OF BREATH; Start 11/02/18 at 22:30 Metoprolol Tartrate (Lopressor) 2.5 mg Q6H PRN IV AFIB WITH HR GREATER THAN 115 Last administered on 11/03/18at 08:06; Admin Dose 2.5 MG; Start 11/03/18 at 05:30 Aspirin (Aspirin) 81 mg DAILY PO Last administered on 11/03/18at 10:45; Admin Dose 81 MG; Start 11/03/18 at 09:30 Enoxaparin Sodium (Lovenox) 40 mg DAILY SC Last administered on 11/03/18at 11:05; Admin Dose 40 MG; Start 11/03/18 at 10:00 Metoprolol Tartrate (Lopressor) 12.5 mg BID PO Last administered on 11/03/18at 10:46; Admin Dose 12.5 MG; Start 11/03/18 at 10:00 NANETTE ALLEN Nov 03, 2018 18:28
[2018-11-03] MEDS: DILTIAZEM (CD) 120 MG CAP PO SCH (18:30)
[2018-11-04] VITALS (7 sets, daily range): BP systolic 107–117; BP diastolic 62–72; PULSE 67–120; RESP 18–20
[2018-11-04] MEDS: METOPROLOL 5 MG INJ IV PRN (06:17)
[2018-11-04] MEDS: DILTIAZEM (CD) 120 MG CAP PO SCH (09:13)
[2018-11-04] MEDS: FAMOTIDINE 20 MG TAB PO SCH (09:13)
[2018-11-04] MEDS: ASPIRIN 81 MG TAB PO SCH (09:13)
[2018-11-04] MEDS: ENOXAPARIN 40 MG/0.4 ML SYG SC SCH (09:36)
[2018-11-04] MEDS ORDERED: FAMO20TA18 PO (10:01)
[2018-11-04] MEDS ORDERED: DILT120C77 PO (10:01)
--- NOTE | 2018-11-04 10:04 | PDOCDIS ---
Discharge Instructions CONDITION [id number] Patient Condition: [id number] Stable HOME CARE INSTRUCTIONS: [id number] Diet Instructions: [id number] Low Fat /Cholesterol OTHER ORDERS: Other Orders: 1. Take medications as per prescription. 2. Follow a low-cholesterol, low carbohydrate diet. 3. Resume activities as tolerated. 4. Follow-up with your primary care physician in 2 weeks. If you do not have a primary care physician, please call Dr. Prudencio Iyer's office. 5. Please have your primary care physician arrange for outpatient cardiology and outpatient gastroenterology follow-up. 6. Please go to the nearest emergency room if you have any chest pain, palpitations, significant shortness of breath, or any other unusual signs/symptoms. 1. Woo medicamentos segn la prescripcin. 2. Siga kennedi dieta baja en colesterol y baja en carbohidratos. 3. Reanudar las actividades segn lo tolerado. 4. Doris un seguimiento con kay mdico de atencin primaria en 2 semanas. Si no tiene un mdico de atencin primaria, llame a la oficina del Dr. Prudencio Iyer. 5. Pdale a kay mdico de atencin primaria que se encargue de la cardiologa ambulatoria y el seguimiento de la gastroenterologa ambulatoria. 6. Vaya a la igor de emergencias ms cercana si tiene dolor en el pecho, palpitaciones, falta de aire o cualquier otro signo o sntoma inusual. TOMMIE ZARAGOZA NP Nov 04, 2018 10:04
--- NOTE | 2018-11-04 10:06 | DS ---
Date/Time of Note Date/Time of Note DATE: 11/04/18 TIME: 10:05 Discharge Summary Admission/Discharge Info Admit Date/Time Nov 02, 2018 at 19:03 Discharge Date/Time Discharge Diagnosis 1. Chest pain. 2. Atrial fibrillation with rapid ventricular response. 3. Normocytic anemia. 4. Prediabetes. Hemoglobin A1c 5.8. Patient Condition: Stable Consults 1. Magno Friedman MD, Cardiology. Procedures 2D Echocardiogram Conclusions: Normal left ventricular systolic function. Normal left ventricular cavity size. Normal left ventricular wall thickness. Ejection fraction is visually estimated at 55 %. Aortic sclerosis without significant stenosis. Mild to moderate aortic valve regurgitation. There is moderate aortic root calcification. There is severe enlargement of left atrium. Unable to obtain RVSP due to minimal presence of tricuspid regurgitation. The IVC is not well visualized. Hx of Present Illness This is a This is a 63-year-old female who denies any significant past medical history. The patient verbalized that she has been having chest pain for the p ast 1 week. The patient came to the emergency room on 11/02/2018 with complaints of chest pain, palpitations, and dyspnea. The patient denied any fevers or chills. The patient was noticed to be in atrial fibrillation with rapid ventricular response in the emergency room. The patient was treated with IV Cardizem with improvement in the patient's heart rate. The patient's troponins were negative. The patient was also noticed to have normocytic anemia. However, the patient denied any active bleeding. Hospital Course A Cardiology consult was obtained. The patient serial troponins remained negative. The patient's 2D echocardiogram was showing preserved left ventricular ejection fraction. The patient was maintained on Cardizem with fairly well controlled heart rate. The patient continued to remain in atrial fibrillation. The patient is not a good candidate for anticoagulation because of underlying anemia. Nevertheless the patient's [id number] score is not high. The patient's chest pain was nonspecific, most probably secondary to underlying gastrointestinal etiology. The etiology of the patient's anemia remains unclear. The patient denied any active bleeding. Stool for OB is pending at this time. The patient was given 1 unit of PRBC transfusion. The patient's H&H remained stable afterwards. The patient needs outpatient gastroenterology follow-up. Meanwhile, the patient will be maintained on histamine 2 receptor blockers. The patient was incidentally noted to have prediabetes with a hemoglobin A1c of 5.8. The patient's random blood glucose levels remained within normal limits. The patient had a stable hospital course. The patient is stable to be discharged home, with outpatient cardiology and gastroenterology follow-up. Discharge Instructions 1. Take medications as per prescription. 2. Follow a low-cholesterol, low carbohydrate diet. 3. Resume activities as tolerated. 4. Follow-up with your primary care physician in 2 weeks. If you do not have a primary care physician, please call Dr. Prudencio Iyer's office. 5. Please have your primary care physician arrange for outpatient cardiology and outpatient gastroenterology follow-up. 6. Please go to the nearest emergency room if you have any chest pain, palpitations, significant shortness of breath, or any other unusual signs/symptoms. The patient verbalized understanding of her discharge instructions. At this time I would like to thank for seeing the patient and providing clinical recommendations. The patient was seen in collaboration with Dr. Foster. Home Meds Active Scripts Diltiazem Hcl* (Cardizem CD*) 240 Mg Cap.sr.24h, 240 MG PO DAILY, #30 CAP Prov:TOMMIE ZARAGOZA POWER AND RECOVERY SUPERVISOR 11/04/18 Famotidine* (Famotidine*) 20 Mg Tablet, 20 MG PO Q12, #60 TAB Prov:TOMMIE ZARAGOZA POWER AND RECOVERY SUPERVISOR 11/04/18 Primary Care Provider Not On Staff Doctor Time spent on discharge: > 30 minutes Pending Labs Laboratory Tests Test 11/03/18 10:30 11/03/18 10:54 11/03/18 13:12 11/04/18 06:05 Urine Opiates Negative (NEGAT Screen ANGELITO) Urine Negative (NEGAT Barbiturates ANGELITO) Urine Negative (NEGAT Amphetamines ANGELITO) Screen Urine Negative (NEGAT Benzodiazepines ANGELITO) Screen Urine Cocaine Negative (NEGAT Screen ANGELITO) Urine Negative (NEGAT Cannabinoids ANGELITO) Creatine 46 51 Kinase IU/L (23-200) IU/L (23-200) Creatine Kinase 0.8 0.7 Index Creatinine 0.37 0.37 Kinase MB ng/ml (0.0-2.4 ng/ml (0.0-2.4 (Mass) ) ) Troponin I < 0.012 < 0.012 ng/ml (0.000-0 ng/ml (0.000-0 .120) .120) Ethyl Alcohol < 10.0 Level mg/dl (0-0) White Blood 7.3 Count 10^3/ul (4.8-1 0.8) Red Blood 3.84 Count 10^6/ul (4.20- 5.40) Hemoglobin 10.9 g/dl (12.0-16. 0) Hematocrit 34.2 % (37.0-47.0) Mean 89.1 Corpuscular fl (82.0-101.0 Volume ) Mean 28.4 Corpuscular pg (29.0-33.0) Hemoglobin Mean 31.9 Corpuscular g/dl (32.0-37. Hemoglobin Conc 0) ent Red Cell 14.6 Distribution % (11.5-14.5) Width Platelet Count 194 10^3/UL (140-4 15) Mean Platelet 11.9 Volume fl (7.4-10.4) Immature 0.300 Granulocytes % % (0.001-0.429 ) Neutrophils % 62.8 % (39.0-77.0) Lymphocytes % 24.7 % (15.0-51.0) Monocytes % 9.3 % (0.0-11.0) Eosinophils % 2.5 % (0.0-7.0) Basophils % 0.4 % (0.0-2.0) Nucleated Red 0.0 Blood Cells % /100WBC (0.0-0 .0) Immature 0.020 Granulocytes # 10^3/ul (0.0-0 .031) Neutrophils # 4.6 10^3/ul (1.6-7 .5) Lymphocytes # 1.8 10^3/ul (0.8-2 .9) Monocytes # 0.7 10^3/ul (0.3-0 .9) Eosinophils # 0.2 10^3/ul (0.0-0 .5) Basophils # 0.0 10^3/ul (0.0-0 .1) Nucleated Red 0.0 Blood Cells # 10^3/ul (0.0-0 .0) Sodium Level 140 mmol/L (135-14 4) Potassium 4.2 Level mmol/L (3.5-5. 1) Chloride Level 108 mmol/L (97-110 ) Carbon Dioxide 26 Level mmol/L (21-31) Anion Gap 6 (5-13) Blood Urea 17 Nitrogen mg/dl (7-20) Creatinine 0.82 mg/dl (0.44-1. 00) Est Glomerular > 60 Filtrat mL/min (>60) Rate mL/min Glucose Level 102 mg/dl (70-220) Calcium Level 8.8 mg/dl (8.4-10. 2) Phosphorus 5.3 Level mg/dl (2.5-4.9 ) Magnesium 2.2 Level mg/dl (1.7-2.5 ) TOMMIE ZARAGOZA NP Nov 04, 2018 10:06
--- NOTE | 2018-11-04 13:23 | CONS ---
Assessment/Plan Assessment/Plan Hospital Course (Demo Recall) Atrial fibrillation: unknown duration but possible new onset. CHADSVASC is 0 so no anticoagulation indicated especially with anemia. Rates uncontrolled this am Anemia: no active bleeding. With abdominal pain, consider PUD "Chest pain": pt denies. Trops negative. Echo with preserved EF -increase to diltiazem 240mg daily -if HR controlled can still be discharged today, otherwise keep one more day Consultation Date/Type/Reason Admit Date/Time Nov 02, 2018 at 19:03 Initial Consult Date 11/03/18 Type of Consult Cardiology Requesting Provider: EMERITA SETH Date/Time of Note DATE: 11/04/18 TIME: 13:21 24 HR Interval Summary Free Text/Dictation HR poorly controlled this am. No complaints Exam/Review of Systems Vital Signs Vitals Vital Signs Date Temp Pulse Resp B/P (MAP) Pulse Ox O2 O2 Flow FiO2 Time Delivery Rate 11/04/18 104 12:00 11/04/18 97.6 18 117/64 98 Room Air 11:44 (81) 11/04/18 2.0 02:04 Intake and Output 11/03/18 11/03/18 11/04/18 1414:59 22:59 06:59 IntakeIntake Total 550 ml 600 ml BalanceBalance 550 ml 600 ml Exam Constitutional: alert, oriented Psych: no complaints, nl mood/affect Head: normocephalic, atraumatic Neck: supple; No jvd Respiratory: clear to auscultation; No crackles/rales Cardiovascular: No regular rate and rhythm (IRIR, tachy), No edema, No systolic murmur Gastrointestinal: soft, non-tender; No distended Musculoskeletal: nl extremities to inspection Neurological: nl mental status, nl speech Labs Result Diagram: 11/04/18 0605 11/04/18 0605 Results 24hrs Laboratory Tests Test 11/04/18 06:05 White Blood Count 7.3 Red Blood Count 3.84 L Hemoglobin 10.9 L Hematocrit 34.2 L Mean Corpuscular Volume 89.1 Mean Corpuscular Hemoglobin 28.4 L Mean Corpuscular Hemoglobin Concent 31.9 L Red Cell Distribution Width 14.6 H Platelet Count 194 Mean Platelet Volume 11.9 H Immature Granulocytes % 0.300 Neutrophils % 62.8 Lymphocytes % 24.7 Monocytes % 9.3 Eosinophils % 2.5 Basophils % 0.4 Nucleated Red Blood Cells % 0.0 Immature Granulocytes # 0.020 Neutrophils # 4.6 Lymphocytes # 1.8 Monocytes # 0.7 Eosinophils # 0.2 Basophils # 0.0 Nucleated Red Blood Cells # 0.0 Sodium Level 140 Potassium Level 4.2 Chloride Level 108 Carbon Dioxide Level 26 Anion Gap 6 Blood Urea Nitrogen 17 Creatinine 0.82 Est Glomerular Filtrat Rate mL/min > 60 Glucose Level 102 Calcium Level 8.8 Phosphorus Level 5.3 H Magnesium Level 2.2 Medications Medications Current Medications IV Flush (NS 3 ml) 3 ml PER PROTOCOL IV ; Start 11/02/18 at 20:00 Ondansetron HCl (Zofran Inj) 4 mg Q6H PRN IV NAUSEA/VOMITING; Start 11/02/18 at 20:00 Nitroglycerin (Nitroglycerin (Sl Tab) 0.4 Mg) 1 tab Q5M PRN SL .CHEST PAIN; Start 11/02/18 at 20:00 Acetaminophen (Tylenol Tab) 650 mg Q6H PRN PO .PAIN 1-3 OR TEMP Last administered on 11/04/18at 00:44; Admin Dose 650 MG; Start 11/02/18 at 20:00 Docusate Sodium (Colace) 100 mg Q12H PRN PO .CONSTIPATION; Start 11/02/18 at 20:00 Magnesium Hydroxide (Milk Of Mag) 30 ml DAILY PRN PO .CONSTIPATION; Start 11/02/18 at 20:00 Famotidine (Pepcid) 20 mg Q12 PO Last administered on 11/04/18at 09:13; Admin Dose 20 MG; Start 11/02/18 at 21:00 Levalbuterol (Xopenex Neb) 1.25 mg Q4H RESP THERAPY PRN HHN SHORTNESS OF BREATH; Start 11/02/18 at 22:30 Metoprolol Tartrate (Lopressor) 2.5 mg Q6H PRN IV AFIB WITH HR GREATER THAN 115 Last administered on 11/04/18at 06:17; Admin Dose 2.5 MG; Start 11/03/18 at 05:30 Aspirin (Aspirin) 81 mg DAILY PO Last administered on 11/04/18at 09:13; Admin Dose 81 MG; Start 11/03/18 at 09:30 Enoxaparin Sodium (Lovenox) 40 mg DAILY SC Last administered on 11/04/18at 09:36; Admin Dose 40 MG; Start 11/03/18 at 10:00 Diltiazem HCl (Cardizem Cd) 120 mg DAILY PO Last administered on 11/04/18at 09:13; Admin Dose 120 MG; Start 11/03/18 at 18:30 NANETTE ALLEN Nov 04, 2018 13:23
[2018-11-04] MEDS ORDERED: DILTIAZEM (CD) 120 MG CAP PO ONE (13:30)
[2018-11-04] MEDS ORDERED: DILT240C79 PO (15:44)
[2018-11-05] MEDS ORDERED: DILTIAZEM (CD) 240 MG CAP PO SCH (09:00)
== END 2018-11-04 17:24 | disposition home or self-care (01) | DRG 310 ==
LOC: E/R 16:53 → TEL 19:03
PROVIDERS: ADMIT Internal Medicine; ATTEND Internal Medicine
PROC: 30233N1 Transfusion of Nonautologous Red Blood Cells into Peripheral Vein, Percutaneous Approach (ICD-10-PCS; principal; 2018-11-02)
DX: I48.91 Unspecified atrial fibrillation (principal); D64.9 Anemia, unspecified; R07.9 Chest pain, unspecified; E78.5 Hyperlipidemia, unspecified; R73.03 Prediabetes; Z79.82 Long term (current) use of aspirin
CPT/HCPCS: 36415; 36430; 71045; 80048; 80053; 80061; 80307; 81001; 82550; 82553; 83036; 83540; 83690; 83735; 83880; 84100; 84439; 84443; 84481; 84484; 85025; 86850; 86900; 86901; 86920; 93005; 93306; 96374; 97161; J1650; J1940; J3475; P9016

== ENCOUNTER 2019-01-02 18:58 | Inpatient (IN) | payer MEDICAID ==
[~2019-01-02] VITALS: Ht 157.5 cm; Wt 70.1 kg
[~2019-01-02 18:58] MED LIST: DILT240C79 PO; FAMO20TA18 PO
[2019-01-02] MEDS ORDERED: SOD CHLORIDE 0.9% 1,000 ML IV STA (22:09)
[2019-01-02] MEDS ORDERED: ONDANSETRON 4 MG INJ IV STA (22:09)
[2019-01-02] MEDS ORDERED: GARL1TAB2 PO (23:32)
[2019-01-02] MEDS ORDERED: ASPI-817 PO (23:32)
[2019-01-03] MEDS ORDERED: ACETAMINOPHEN 325 MG TAB PO PRN ×2 (03:00→07:00)
[2019-01-03] MEDS ORDERED: ONDANSETRON 4 MG INJ IV PRN ×2 (03:00→07:00)
--- NOTE | 2019-01-03 03:21 | ERD ---
ER Documentation Chief Complaint Chief Complaint almost syncopal episode at home; denies hitting head; ringing ears HPI This 63-year female with a syncopal episode at home. Apparently she passed out for less than 2 seconds in front of family. She denies any chest pain nausea vomiting fevers chills or head trauma. She denies any other current complaints. ROS All systems reviewed and are negative except as per history of present illness. Medications Home Meds Active Scripts Diltiazem Hcl* (Cardizem CD*) 240 Mg Cap.sr.24h, 240 MG PO DAILY, #30 CAP Prov:TOMMIE ZARAGOZA FINDING FASTENER 11/04/18 Famotidine* (Famotidine*) 20 Mg Tablet, 20 MG PO Q12, #60 TAB Prov:TOMMIE ZARAGOZA FINDING FASTENER 11/04/18 Reported Medications Garlic (Garlic) 1 Each Tablet, 1 EACH PO DAILY, TAB 01/02/19 Aspirin* (Aspirin* EC) 81 Mg Tablet.dr, 81 MG PO DAILY, TAB 01/02/19 Allergies Allergies: Coded Allergies: No Known Drug Allergies (Unverified Allergy, Unknown, 01/02/19) PMhx/Soc History of Surgery: Yes ( X2 19YRS AGO, GALLBLADDER REMOVAL 2007) Anesthesia Reaction: No Hx Neurological Disorder: No Hx Respiratory Disorders: No Hx Cardiac Disorders: Yes (A. FIB) Hx Psychiatric Problems: No Hx Miscellaneous Medical Probl: Yes (symptomatic anemia ) Hx Alcohol Use: No Hx Substance Use: No Hx Tobacco Use: No Smoking Status: Never smoker Physical Exam Vitals Vital Signs Date Temp Pulse Resp B/P (MAP) Pulse Ox O2 O2 Flow FiO2 Time Delivery Rate 01/02/19 98 18 138/82 98 Room Air 23:56 (100) 01/02/19 92 21 123/79 98 Room Air 21:59 (94) 01/02/19 97.3 92 20 108/68 98 19:12 (81) Physical Exam Const: No acute distress Head: Atraumatic Eyes: Normal Conjunctiva ENT: Normal External Ears, Nose and Mouth. Neck: Full range of motion. No meningismus. Resp: Clear to auscultation bilaterally Cardio: Regular rate and rhythm, no murmurs Abd: Soft, non tender, non distended. Normal bowel sounds Skin: No petechiae or rashes Back: No midline or flank tenderness Ext: No cyanosis, or edema Neur: Awake and alert Psych: Normal Mood and Affect Result Diagram: 01/02/19 2212 01/02/192 Results 24 hrs Laboratory Tests Test 01/02/19 22:12 White Blood Count 11.3 10^3/ul Red Blood Count 5.22 10^6/ul Hemoglobin 13.8 g/dl Hematocrit 43.4 % Mean Corpuscular Volume 83.1 fl Mean Corpuscular Hemoglobin 26.4 pg Mean Corpuscular Hemoglobin Concent 31.8 g/dl Red Cell Distribution Width 13.2 % Platelet Count 222 10^3/UL Mean Platelet Volume 11.9 fl Immature Granulocytes % 0.400 % Neutrophils % 86.2 % Lymphocytes % 9.6 % Monocytes % 3.1 % Eosinophils % 0.3 % Basophils % 0.4 % Nucleated Red Blood Cells % 0.0 /100WBC Immature Granulocytes # 0.040 10^3/ul Neutrophils # 9.7 10^3/ul Lymphocytes # 1.1 10^3/ul Monocytes # 0.4 10^3/ul Eosinophils # 0.0 10^3/ul Basophils # 0.0 10^3/ul Nucleated Red Blood Cells # 0.0 10^3/ul Sodium Level 139 mmol/L Potassium Level 4.6 mmol/L Chloride Level 104 mmol/L Carbon Dioxide Level 25 mmol/L Anion Gap 10 Blood Urea Nitrogen 14 mg/dl Creatinine 0.64 mg/dl Est Glomerular Filtrat Rate mL/min > 60 mL/min Glucose Level 130 mg/dl Calcium Level 9.2 mg/dl Total Bilirubin 0.5 mg/dl Direct Bilirubin 0.00 mg/dl Indirect Bilirubin 0.5 mg/dl Aspartate Amino Transf (AST/SGOT) 54 IU/L Alanine Aminotransferase (ALT/SGPT) 45 IU/L Alkaline Phosphatase 105 IU/L Troponin I < 0.012 ng/ml Total Protein 8.2 g/dl Albumin 4.7 g/dl Globulin 3.50 g/dl Albumin/Globulin Ratio 1.34 Lipase 86 U/L Current Medications Medications Dose Sig/Tavia Start Time Status Last (Trade) Ordered Route PRN Stop Time Admin Dose Reason Admin Sodium 1,000 ml @ Q1H STAT 01/02/19 DC 01/02/19 Chloride 1,000 mls/hr IV 22:09 01/02/19 22:21 23:08 Ondansetron 4 mg ONCE STAT 01/02/19 DC 01/02/19 HCl (Zofran IV 22:09 01/02/19 22:21 Inj) 22:10 Ondansetron 4 mg ER BRIDGE 01/03/19 HCl (Zofran PRN IV 03:00 01/04/19 Inj) NAUSEA/VOMITI 02:59 NG 650 mg ER BRIDGE 01/03/19 Acetaminophen PRN PO 03:00 01/04/19 (Tylenol .MILD PAIN 02:59 Tab) 1-3 OR TEMP Procedures/MDM EKG: Rate/Rhythm: [Normal Sinus Rhythm] QRS, ST, T-waves: [No changes consistent w/ acute ischemia] Impression: [No evidence of ischemia or arrhythmia] Chest X-ray 1V Interpreted by me: Soft Tissue: No acute abnormalities Bones: No acute abnormalities Mediastinum/Cardiac Silhouette/Lungs: [No acute abnormalities] Patient's syncopal symptoms are unstable at this time and require inpatient workup. No evidence of PE or dissection at this time but occult ischemia or fatal dysrhythmia cannot be ruled out. Departure Diagnosis: Primary Impression: Syncope Syncope type: unspecified Qualified Codes: R55 - Syncope and collapse Condition: Serious JM KELLEY Jan 03, 2019 03:21
[2019-01-03] MEDS ORDERED: SOD CHLORIDE 0.45% 1,000 ML IV SCH (06:57)
[2019-01-03] MEDS ORDERED: hydrALAzine 20 MG INJ IV PRN (07:00)
[2019-01-03] MEDS ORDERED: ALBUTEROL/IPRATROPIUM (NEB) 3 ML AMP HHN PRN (07:00)
[2019-01-03] MEDS ORDERED: HYDROCODONE/APAP (5/325) TAB PO PRN (07:00)
[2019-01-03] MEDS ORDERED: morphine 2 MG INJ IV PRN (07:00)
[2019-01-03] MEDS ORDERED: NACL 0.9% 3 ML SYG IV SCH (07:00)
[2019-01-03] MEDS ORDERED: LORAZEPAM 2 MG INJ IV PRN (07:00)
[2019-01-03] MEDS ORDERED: DOCUSATE SODIUM 100 MG CAP PO PRN (07:00)
[2019-01-03] MEDS ORDERED: FAMOTIDINE 20 MG TAB PO SCH (09:00)
[2019-01-03] MEDS ORDERED: ASPIRIN (EC) 325 MG TAB PO SCH (09:00)
--- NOTE | 2019-01-03 09:02 | HP ---
Date/Time of Note Date/Time of Note DATE: 01/03/19 TIME: 08:55 Assessment/Plan VTE Prophylaxis Pharmacological prophylaxis: heparin Lines/Catheters IV [facility]from [facility] Saline Lock Assessment/Plan Hospital Course SUBJECTIVE: Patient complains of headache. Otherwise currently no chest pain, palpitation, nausea, vomiting, diaphoresis or other discomfort. OBJECTIVE: Vital signs-see below PHYSICAL EXAM: Constitutional: Adequately built,not in acute distress. HEENT: Head atraumatic and normocephalic. Eyes: Extraocular muscles intact. Anicteric sclerae. Pupils equal bilaterally, reactive to light. NECK: Supple without lymph node. CHEST: Clear and good breath sounds equally. No wheezing. No rhonchi. HEART: S1, S2. Regular rate and rhythm. ABDOMEN: Soft/non tender with no rebound tenderness. Bowel sounds were present. EXTREMITIES: No cyanosis, clubbing or edema. NEUROLOGIC: Alert and oriented x3. No focal deficit. No sensory deficit. PSYCHOSOCIAL: No signs of depression. INTEGUMENTARY: No open wounds. ASSESSMENT AND PLAN:63 yo F w/afib here after she passed out for about 2 seconds,had chest discomfort/headache.. Syncope/Headache -Brain CT/carotids unremarkable -Rule out neurovascular vs cardiovascular events -CTB/Carotids negative.. -Obtain MRI brain as pt is at high threshold for embolic stroke in light of Afib... -serial troponin, EKG monitoring. -Aspirin prophylaxis -Cardiology follow-up -Neuro consult pending MRI... -TTE w/bubble study pending MRI findings -PT/OT eval Atrial fibrillation CHADSVASC is 1 -Rate controlled -Resume Cardizem DVT prophylaxis: Heparin Rest of the management depend on clinical course. Approximately 60 m spent on this history and physical. Patient was seen in collaboration with Dr. Menard. Result Diagram: 01/02/19 2212 01/02/19 2212 Results 24hrs Laboratory Tests Test 01/02/19 22:12 White Blood Count 11.3 #H Red Blood Count 5.22 # Hemoglobin 13.8 # Hematocrit 43.4 # Mean Corpuscular Volume 83.1 Mean Corpuscular Hemoglobin 26.4 L Mean Corpuscular Hemoglobin Concent 31.8 L Red Cell Distribution Width 13.2 Platelet Count 222 Mean Platelet Volume 11.9 H Immature Granulocytes % 0.400 Neutrophils % 86.2 H Lymphocytes % 9.6 L Monocytes % 3.1 Eosinophils % 0.3 Basophils % 0.4 Nucleated Red Blood Cells % 0.0 Immature Granulocytes # 0.040 H Neutrophils # 9.7 H Lymphocytes # 1.1 Monocytes # 0.4 Eosinophils # 0.0 Basophils # 0.0 Nucleated Red Blood Cells # 0.0 Sodium Level 139 Potassium Level 4.6 Chloride Level 104 Carbon Dioxide Level 25 Anion Gap 10 Blood Urea Nitrogen 14 Creatinine 0.64 Est Glomerular Filtrat Rate mL/min > 60 Glucose Level 130 Calcium Level 9.2 Total Bilirubin 0.5 Direct Bilirubin 0.00 Indirect Bilirubin 0.5 Aspartate Amino Transf (AST/SGOT) 54 H Alanine Aminotransferase (ALT/SGPT) 45 Alkaline Phosphatase 105 Troponin I < 0.012 Total Protein 8.2 H Albumin 4.7 Globulin 3.50 H Albumin/Globulin Ratio 1.34 Lipase 86 Free Thyroxine 1.15 HPI/ROS Admit Date/Time Admit Date/Time Hx of Present Illness This is a 63-year-old Lao-speaking female with a history of atrial fibrillation diagnosed in October 2018, was brought in by family members as she "passed out about 2 seconds" this morning. Patient also reported substernal chest discomfort, and headache after she woke up. Patient denied nausea, vomiting, palpitation, numbness, tingling, speech difficulties, vision changes, facial asymmetry, fever, chills, bowel or bladder incontinence. Patient was recently seen in [facility] in October 2018 when she was diagnosed with new onset atrial fibrillation with CHADSVASC= 0, and was sent home with rate control on Cardizem which she was taking. Initial EKG showed atrial fibrillation with heart rate 90. Initial troponin negative. Electrolytes level stable. Chest x-ray stable. CT brain and carotid ultrasound unremarkable. Able vital signs. ROS A 12 point review of system was assessed and is negative other than what is mentioned in the HPI. PMH/Family/Social Past Medical History See HPI Medications Current Medications Ondansetron HCl (Zofran Inj) 4 mg ER BRIDGE PRN IV NAUSEA/VOMITING; Start 01/03/19 at 03:00; Stop 01/04/19 at 02:59 Acetaminophen (Tylenol Tab) 650 mg ER BRIDGE PRN PO .MILD PAIN 1-3 OR TEMP; Start 01/03/19 at 03:00; Stop 01/04/19 at 02:59 IV Flush (NS 3 ml) 3 ml PER PROTOCOL IV ; Start 01/03/19 at 07:00 Ondansetron HCl (Zofran Inj) 4 mg Q6H PRN IV NAUSEA/VOMITING; Start 01/03/19 at 07:00 Acetaminophen (Tylenol Tab) 650 mg Q6H PRN PO .PAIN 1-3 OR TEMP; Start 01/03/19 at 07:00 Acetaminophen/ Hydrocodone Bitart ([place] (5/325)) 1 tab Q6H PRN PO .MOD PAIN 4- 6; Start 01/03/19 at 07:00 Morphine Sulfate (morphine) 2 mg Q4H PRN IV .SEVERE PAIN 7-10; Start 01/03/19 at 07:00 Docusate Sodium (Colace) 100 mg Q12H PRN PO .CONSTIPATION; Start 01/03/19 at 07:00 Magnesium Hydroxide (Milk Of Mag) 30 ml DAILY PRN PO .CONSTIPATION; Start 01/03/19 at 07:00 Heparin Sodium (Porcine) (Heparin (5000 Units/1ml)) 5,000 unit Q12 SC ; Start 01/03/19 at 09:00 Sodium Chloride 1,000 ml @ 75 mls/hr [id number] IV ; Start 01/03/19 at 06:57 Lorazepam (Ativan) 0.5 mg Q6H PRN IV ANXIETY; Start 01/03/19 at 07:00 Albuterol/ Ipratropium (Duoneb) 3 ml Q4H RESP THERAPY PRN HHN SHORTNESS OF BREATH; Start 01/03/19 at 07:00 Hydralazine HCl (Apresoline) 10 mg Q6H PRN IV ELEVATED BLOOD PRESSURE; Start 01/03/19 at 07:00 Nitroglycerin (Nitroglycerin (Sl Tab) 0.4 Mg) 1 tab Q5M PRN SL ANGINA; Start 01/03/19 at 07:00 Aspirin (Ecotrin) 325 mg DAILY PO ; Start 01/03/19 at 09:00 Famotidine (Pepcid) 20 mg Q12 PO ; Start 01/03/19 at 09:00 Coded Allergies: No Known Drug Allergies (Unverified Allergy, Unknown, 01/02/19) Past Surgical History None Family History Significant Family History: no pertinent family hx Social History Denied history of alcohol, smoking or illicit drug use Smoking Status: Never smoker Exam/Review of Systems Vital Signs Vitals Vital Signs Date Temp Pulse Resp B/P (MAP) Pulse Ox O2 O2 Flow FiO2 Time Delivery Rate 01/03/19 84 20 114/81 97 Room Air 06:00 (92) 01/02/19 97.3 19:12 LESLYE PARKER NP Jan 03, 2019 09:01
[2019-01-03] MEDS ORDERED: NITROGLYCERIN (SL) 0.4 MG TAB SL PRN (09:30)
--- NOTE | 2019-01-03 12:57 | EN ---
Date/Time of Note Date/Time of Note DATE: 01/03/19 TIME: 12:53 Event Note Medicine Medicine Event Note Acute CVA MRI result: IMPRESSION: 1. Approximately 27 mm acute infarction with restricted diffusion at the anteroinferior left cerebellar hemisphere of the left posterior inferior cerebellar artery territory. 2. Approximately 10 mm old lacunar infarction at the superior left cerebellar hemisphere. 3. No hemorrhage, mass, or hydrocephalus. 4. Mild age-related microvascular change. 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 Neuro exam: Alert/orientedx4. Motor: RUE:5/5 , LUE:5/5,RLE:5/5,LLE 5/5 No numbness/tingling. HEENT: Atraumatic. Symmetrical face. No droop appreciated.Speech clear.No eye deviation DX:Acute cerebellar stroke -Tele neuro consulted.Spoke w/ and findings discussed. Outside window for tPA . -Neurology consult -Aspirin 81/atorvastatin 80 STAT -Proceed w/CTA Brain/neck -TTE w/bubble study -Rehab Case d/w LESLYE Haimlton V. AFTER SCHOOL PROGRAM DIRECTOR Jan 03, 2019 12:57
[2019-01-03] MEDS ORDERED: ASPIRIN 81 MG TAB PO ONE (13:00)
[2019-01-03] MEDS ORDERED: ATORVASTATIN 80 MG TAB PO ONE (13:00)
--- NOTE | 2019-01-03 14:27 | STROKE ---
Date/Time of Note Date/Time of Note DATE: 01/03/19 TIME: 14:19 Patient Information General Patient location: inpatient Arrival Date 01/02 Onset Date: Jan 01, 2019 Age 63 Gender female Weight 70.1 kg Vital Signs Vital Signs Vital Signs Date Temp Pulse Resp B/P (MAP) Pulse Ox O2 O2 Flow FiO2 Time Delivery Rate 01/03/19 102 20 116/81 98 Room Air 13:21 (93) 01/02/19 97.3 19:12 Patient History Past Medical History Other afib Current Medications Allergies: Coded Allergies: No Known Drug Allergies (Unverified Allergy, Unknown, 01/02/19) History & Physical Patient History Notes Patient History Notes 63 yo F who was admitted for a syncopal workup and subsequently found to have an acute left cerebellar stroke on MRI today. The patient reports that she has had persistent dizziness/vertigo since Monday 01/01. Review of Systems Constitutional: no symptoms reported Respiratory: no symptoms reported Cardiovascular: no symptoms reported NIH Stroke Scale NIH Stroke Scale [id number] Total Score: [id number] Date/Time Recorded DATE: 01/03/19 TIME: 14:19 Submitted By Erasmo Paredes t-PA Imaging Review Imaging Reviewed: Yes Date/Time Imaging Reviewed DATE: 01/03/19 TIME: 14:19 Inclusion/Exclusion Criteria outside eligibility window t-PA Administration Recommendation: No Weight 70.1 kg Recommedation submitted by Erasmo Paredes Reason t-PA not Recommended outside 4.5h window t-PA Not Recommended Date/Time 01/03 1:00p Recommendations Impression [address] Site: [address] Cerebral arteries Diagnosis 63 yo F with history of Afib, not on anticoagulation, who presents with dizziness that began on 01/01. MRI today revealed an acute left cerebellar stroke, in the PICA distribution. NIHSS was 1 for mild ataxia. TPA was not recommended given chronicity of symptoms. The patient will need further stroke workup Recommendation 1) telemetry admission 2) Neurology consult to guide ischemic/embolic workup: TTE w bubble, LDL, A1c, CTA head/neck if no vascular imaging performed yet 3) will need to be on anticoagulation ultimately for secondary stroke prevention ERASMO PAREDES MD Jan 03, 2019 14:27
[2019-01-03] MEDS ORDERED: SOD CHLORIDE 0.9% 100 ML ONE (14:35)
[2019-01-03] MEDS ORDERED: IOHEXOL 100 ML ONE (14:35)
--- NOTE | 2019-01-03 15:29 | RADRPT ---
Echocardiogram Report Patient Name: MIRELLA RANDALLPatient ID: [id number] : 1955 (63y 5m)Study Date: 01/03/2019 10:05:18 AM Gender: FAccession #: [id number] Tech: LE Location: [facility] Ref.Physician: CLARICE ABARCA Height(Cm): BSA: Weight(Kg): Quality: GoodOrder Physician: CLARICE ABARCA Account #: Procedures: Echocardiographic Report: Transthoracic echocardiogram with complete 2D, M-Mode, and doppler examination. Indications: Chest Pain. Measurements: 2D/M Mode Doppler Measurement Value Normal Range Measurement Value Normal Range LVIDd 2D 4.1 [ 3.8 - 5.2 ] cm AV Mean Rafael 1.0 [ 70.0 - 90.0 ] cm/sec LVIDs 2D 3.0 [ 2.2 - 3.5 ] cm AV Mean PG 4.0 [ 2.0 - 4.0 ] mmHg LVPWd 2D 1.1 [ 0.6 - 0.9 ] cm AV Peak Rafael 1.4 [ 100.0 - 170.0 ] cm/sec IVSd 2D 1.1 [ 0.6 - 0.9 ] cm AV Peak PG 8.0 [ 2.0 - 9.0 ] mmHg ESV 2D 35.0 [ 14.0 - 42.0 ] ml AV VTI 28.2 cm EF 2D 53.4 [ 54.0 - 74.0 ] percent AI Peak PG 90.0 mmHg LA Dimen 2D 4.7 [ 2.7 - 3.8 ] cm AI Peak Rafael 4.7 cm/sec LVOT Diam 1.9 [ 2.1 - 2.5 ] cm AI PHT 320.0 msec LVOT Peak Rafael 1.1 [ 70.0 - 110.0 ] cm/sec LVOT Peak PG 5.0 [ 2.0 - 6.0 ] mmHg MV E Peak Rafael 1.9 [ 60.0 - 130.0 ] cm/sec MV A Peak Rafael 1.0 [ 100.0 - 120.0 ] cm/sec MV E/A 1.8 [ 0.8 - 1.5 ] ratio MV Decel Time 214 [ 104 - 258 ] msec Lat E` Rafael 0.1 [ 10.0 - 15.0 ] cm/sec Lateral E/E` 28.6 [ 1.0 - 2.0 ] ratio Med E` Rafael 0.1 cm/sec MV E/A 1.8 [ 0.8 - 1.5 ] ratio TR Peak Rafael 2.8 [ 100.0 - 280.0 ] cm/sec TR Peak PG 32.0 mmHg PV Peak Rafael 0.7 [ 40.0 - 80.0 ] cm/sec PV Peak PG 2.0 mmHg Findings: Left Ventricle: Normal left ventricular systolic function. Normal left ventricular cavity size. Normal left ventricular wall thickness. Ejection fraction is visually estimated at 55-60 %. Tissue Doppler/Mitral Doppler indices are indeterminate in this study due to the presence of atrial fibrillation . Right Ventricle: Normal right ventricular size. Normal right ventricular systolic function. Left Atrium: There is severe enlargement of left atrium. Right Atrium: There is moderate enlargement of right atrium. Atrial Septum: Bubble study was performed with and with out valsalva indicating evidence of intra atrial shunt. The shunt appears to be left to right due to increased left atrial pressure as there is a "negative contrast sign". Mitral Valve: Mitral valve leaflets appear mildly thickened. Mild mitral annular calcification. Mild to moderate mitral valve regurgitation. Moderate to severe mitral stenosis. MaxPG 16.00 mmHg. MeanPG 6.00 mmHg. Mitral Valve Area by Continuity 1.30 cm2. Hockeystick appearance of the anterior mitral valve leaflet consistent with rheumatic mitral stenosis which was not well evaluated in the prior study as the patient was tachycardic. Aortic Valve: Normal appearance of the aortic valve. Mild aortic valve regurgitation. Tricuspid Valve: Normal appearance of the tricuspid valve. The estimated Peak RVSP is 35 mmHg. There is mild tricuspid regurgitation. Pulmonic Valve: Normal pulmonic valve appearance. There is trace pulmonic regurgitation. Pericardium: Normal pericardium with no significant pericardial effusion. Aorta: Normal aortic root. IVC: Normal size and normal respiratory collapse consistent with normal right atrial pressure. Conclusions: Normal left ventricular systolic function. Normal left ventricular cavity size. Normal left ventricular wall thickness. Ejection fraction is visually estimated at 55-60 %. Tissue Doppler/Mitral Doppler indices are indeterminate in this study due to the presence of atrial fibrillation . Moderate to severe mitral stenosis. MaxPG 16.00 mmHg. MeanPG 6.00 mmHg. Mitral Valve Area by Continuity 1.30 cm2. Hockeystick appearance of the anterior mitral valve leaflet consistent with rheumatic mitral stenosis which was not well evaluated in the prior study as the patient was tachycardic. Mild to moderate mitral valve regurgitation. Mild aortic valve regurgitation. Bubble study was performed with and with out valsalva indicating evidence of intra atrial shunt. The shunt appears to be left to right due to increased left atrial pressure as there is a "negative contrast sign". The estimated Peak RVSP is 35 mmHg. Normal size and normal respiratory collapse consistent with normal right atrial pressure. Electronically Signed By: Magno Friedman 2019-01-03 15:28:58 PDT
[2019-01-03 15:58] VITALS: BP 133/76; PULSE 93; RESP 18
[2019-01-03 16:26] VITALS: Ht 157.5 cm; Wt 70.1 kg
[2019-01-03 17:03] VITALS: PULSE 111
[2019-01-03] MEDS: ASPIRIN 81 MG TAB PO SCH (17:04)
--- NOTE | 2019-01-03 17:04 | CONSI ---
Assessment/Plan Assessment/Plan Assessment/Plan (Recall) 63 yo F with hx of afib and other comorbidities who presents for evaluation of vertigo with ?transient LOC. MRI brain confirmed an acute L cerebellar infarct... for which neurology is consulted. CTA H/N are without evidence of intracranial athero or stenoses, though notable for the acute infarct. 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 a likely contributor. EKG is notable for afib... a possible contributor as well. P: Ok to defer additional neuroimaging Cont ASA/Lipitor for secondary stroke prevention Permissive HTN up to 220/110 for 24-48h Add ESR, RPR Cont other medical management per primary PT/OT/ST as necessary Will follow clinically, to recommend neurologic studies, as necessary Consultation Date/Type/Reason Admit Date/Time Type of Consult Neurology Reason for Consultation stroke Requesting Provider: LESLYE PARKER NP Date/Time of Note DATE: 01/03/19 TIME: 17:04 Hx of Present Illness 63 yo F with newly diagnosed afib who presented to the ED after an episode of dizziness followed by a fall. History was obtained from chart review, as pt is a limited historian. She currently endorses dizziness, like the room is spinning and gait instability. Denies headache, weakness, lethargy, confusion, vision or speech problems, numbness/tingling, nausea/vomiting. It is additionally elsewhere noted: Hx of Present Illness This is a 63-year-old Macedonian-speaking female with a history of atrial fi brillation diagnosed in October 2018, was brought in by family members as she "passed out about 2 seconds" this morning. Patient also reported substernal chest discomfort, and headache after she woke up. Patient denied nausea, vomiting, palpitation, numbness, tingling, speech difficulties, vision changes, facial asymmetry, fever, chills, bowel or bladder incontinence. [place] [facility] when she was diagnosed with new onset atrial fibrillation with CHADSVASC= 0, and was sent home with rate control on Cardizem which she was taking. Initial EKG showed atrial fibrillation with heart rate 90. Initial troponin negative. Electrolytes level stable. Chest x-ray stable. CT brain and carotid ultrasound unremarkable. Able vital signs. negative unless noted otherwise in HPI Objective Exam Vitals Vital Signs Date Temp Pulse Resp B/P (MAP) Pulse Ox O2 O2 Flow FiO2 Time Delivery Rate 01/03/19 98.4 93 18 133/76 96 15:58 (95) 01/03/19 Room Air 15:30 Exam PE: Gen Appearance: No Apparent Distress HEENT: Normocephalic Cardiovascular: Regular rate Lungs: Clear bilaterally Abdomen: Soft Extremities: Dry NE: The patient was alert and oriented to self and place. Language was normal. Fund of knowledge was limited.. Pupils were equal and reactive to light. There was no afferent pupillary defect. Visual shipley were normal. Funduscopic examination was limited. Extra-ocular movements were full. Ptosis was absent. There was no nystagmus. Facial sensation was normal. Face was symmetric with normal strength. Hearing was intact. Palate movements were normal. Neck strength was normal. There was normal tongue bulk and speed of movement. Tone was normal. Muscle bulk was normal. I did not see fasciculations. Arms and legs were strong. Vibration sensation was normal. Temperature and pinprick sensation was normal. Rapid alternating movements were normal. There was slight dysmetria on the R. There was no intention tremor. Gait was deferred due to bedrest. Arm and leg reflexes were 2+ and symmetric. Maya's sign was absent. Plantar responses were flexor. Results Result Diagram: 01/02/192 01/02/19 2212 Results 24hrs Laboratory Tests Test 01/02/19 22:12 White Blood Count 11.3 #H Red Blood Count 5.22 # Hemoglobin 13.8 # Hematocrit 43.4 # Mean Corpuscular Volume 83.1 Mean Corpuscular Hemoglobin 26.4 L Mean Corpuscular Hemoglobin Concent 31.8 L Red Cell Distribution Width 13.2 Platelet Count 222 Mean Platelet Volume 11.9 H Immature Granulocytes % 0.400 Neutrophils % 86.2 H Lymphocytes % 9.6 L Monocytes % 3.1 Eosinophils % 0.3 Basophils % 0.4 Nucleated Red Blood Cells % 0.0 Immature Granulocytes # 0.040 H Neutrophils # 9.7 H Lymphocytes # 1.1 Monocytes # 0.4 Eosinophils # 0.0 Basophils # 0.0 Nucleated Red Blood Cells # 0.0 Sodium Level 139 Potassium Level 4.6 Chloride Level 104 Carbon Dioxide Level 25 Anion Gap 10 Blood Urea Nitrogen 14 Creatinine 0.64 Est Glomerular Filtrat Rate mL/min > 60 Glucose Level 130 Calcium Level 9.2 Total Bilirubin 0.5 Direct Bilirubin 0.00 Indirect Bilirubin 0.5 Aspartate Amino Transf (AST/SGOT) 54 H Alanine Aminotransferase (ALT/SGPT) 45 Alkaline Phosphatase 105 Troponin I < 0.012 Total Protein 8.2 H Albumin 4.7 Globulin 3.50 H Albumin/Globulin Ratio 1.34 Lipase 86 Free Thyroxine 1.15 Past Medical History reviewed Home Meds Active Scripts Diltiazem Hcl* (Cardizem CD*) 240 Mg Cap.sr.24h, 240 MG PO DAILY, #30 CAP Prov:TOMMIE ZARAGOZA SENIOR ACCOUNT DIRECTOR 11/04/18 Famotidine* (Famotidine*) 20 Mg Tablet, 20 MG PO Q12, #60 TAB Prov:TOMMIE ZARAGOZA SENIOR ACCOUNT DIRECTOR 11/04/18 Reported Medications Garlic (Garlic) 1 Each Tablet, 1 EACH PO DAILY, TAB 01/02/19 Aspirin* (Aspirin* EC) 81 Mg Tablet.dr, 81 MG PO DAILY, TAB 01/02/19 Medications Current Medications Ondansetron HCl (Zofran Inj) 4 mg ER BRIDGE PRN IV NAUSEA/VOMITING; Start 01/03/19 at 03:00; Stop 01/04/19 at 02:59 Acetaminophen (Tylenol Tab) 650 mg ER BRIDGE PRN PO .MILD PAIN 1-3 OR TEMP; Start 01/03/19 at 03:00; Stop 01/04/19 at 02:59 IV Flush (NS 3 ml) 3 ml PER PROTOCOL IV ; Start 01/03/19 at 07:00 Ondansetron HCl (Zofran Inj) 4 mg Q6H PRN IV NAUSEA/VOMITING; Start 01/03/19 at 07:00 Acetaminophen (Tylenol Tab) 650 mg Q6H PRN PO .PAIN 1-3 OR TEMP; Start 01/03/19 at 07:00 Morphine Sulfate (morphine) 2 mg Q4H PRN IV .SEVERE PAIN 7-10; Start 01/03/19 at 07:00 Docusate Sodium (Colace) 100 mg Q12H PRN PO .CONSTIPATION; Start 01/03/19 at 07:00 Magnesium Hydroxide (Milk Of Mag) 30 ml DAILY PRN PO .CONSTIPATION; Start 01/03/19 at 07:00 Heparin Sodium (Porcine) (Heparin (5000 Units/1ml)) 5,000 unit Q12 SC ; Start 01/03/19 at 09:00 Albuterol/ Ipratropium (Duoneb) 3 ml Q4H RESP THERAPY PRN HHN SHORTNESS OF BREATH; Start 01/03/19 at 07:00 Nitroglycerin (Nitroglycerin (Sl Tab) 0.4 Mg) 1 tab Q5M PRN SL ANGINA; Start 01/03/19 at 07:00 Diltiazem HCl (Cardizem Cd) 240 mg DAILY PO ; Start 01/03/19 at 09:30 Aspirin (Aspirin) 81 mg DAILY PO ; Start 01/03/19 at 09:30 Atorvastatin Calcium (Lipitor) 80 mg HS PO ; Start 01/03/19 at 21:00 Allergies: Coded Allergies: No Known Drug Allergies (Unverified Allergy, Unknown, 01/02/19) Past Surgical History reviewed Social History reviewed Smoking Status: Never smoker CODY SANTIAGO NP Jan 03, 2019 17:04
[2019-01-03] MEDS: DILTIAZEM (CD) 240 MG CAP PO SCH (17:05)
[2019-01-03] MEDS: HEPARIN 5,000 UNIT/1 ML VIAL SC SCH ×2 (17:09→23:25)
--- NOTE | 2019-01-03 17:13 | CONS ---
Assessment/Plan Assessment/Plan Hospital Course (Demo Recall) Acute left cerebellar CVA: With now apparent rheumatic mitral stenosis and atrial fibrillation, this is the cause. There is also a left-right shunt from likely PFO but I dont think this is the cause. 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 This was not well seen on echo 11/16 (I reviewed the images again) as she was significantly tachycardic so both visually and by gradients it was not seen). She can be evaluated for balloon valvuloplasty as outpt Persistent atrial fibrillation: Previously CHADSVASC 0 but now that she has rheumatic mitral stenosis, this calculation is irrelevant and she needs anticoagulation with coumadin Presyncope/syncope: due to cerebellar CVA -when safe, transition ASA to coumadin with goal INR 2-3 (per neuro likely in 1 week) -diltiazem 240mg -neuro f/u Consultation Date/Type/Reason Admit Date/Time Date of Consultation: Jan 03, 2019 Type of Consult Cardiology Reason for Consultation AFib, CVA Requesting Provider: LSELYE PARKER NP Date/Time of Note DATE: 01/03/19 TIME: 17:00 Hx of Present Illness 63 yo F with a h/o new onset atrial fibrillation 10/2018 (CHADSVASC 0 at that time so was not started on anticoagulation), anemia 11/16 now normalized, who presented with syncope/dizziness and was found to have a left cerebellar acute CVA. An branch associate teller was used. She was apparently in the kitchen when she felt a sudden headache at the back of her head, got dizzy and fell (she denies syncope). No chest pain or SOB. No h/o rheumatic fever. She is from [place]. She is a very poor historian. per HPI Past Medical History per hPI Home Meds Active Scripts Diltiazem Hcl* (Cardizem CD*) 240 Mg Cap.sr.24h, 240 MG PO DAILY, #30 CAP Prov:TOMMIE ZARAGOZA MARRIAGE PERFORMER 11/04/18 Famotidine* (Famotidine*) 20 Mg Tablet, 20 MG PO Q12, #60 TAB Prov:TOMMIE ZARAGOZA MARRIAGE PERFORMER 11/04/18 Reported Medications Garlic (Garlic) 1 Each Tablet, 1 EACH PO DAILY, TAB 01/02/19 Aspirin* (Aspirin* EC) 81 Mg Tablet.dr, 81 MG PO DAILY, TAB 01/02/19 Medications Current Medications Ondansetron HCl (Zofran Inj) 4 mg ER BRIDGE PRN IV NAUSEA/VOMITING; Start 01/03/19 at 03:00; Stop 01/04/19 at 02:59 Acetaminophen (Tylenol Tab) 650 mg ER BRIDGE PRN PO .MILD PAIN 1-3 OR TEMP; Start 01/03/19 at 03:00; Stop 01/04/19 at 02:59 IV Flush (NS 3 ml) 3 ml PER PROTOCOL IV ; Start 01/03/19 at 07:00 Ondansetron HCl (Zofran Inj) 4 mg Q6H PRN IV NAUSEA/VOMITING; Start 01/03/19 at 07:00 Acetaminophen (Tylenol Tab) 650 mg Q6H PRN PO .PAIN 1-3 OR TEMP; Start 01/03/19 at 07:00 Morphine Sulfate (morphine) 2 mg Q4H PRN IV .SEVERE PAIN 7-10; Start 01/03/19 at 07:00 Docusate Sodium (Colace) 100 mg Q12H PRN PO .CONSTIPATION; Start 01/03/19 at 0 7:00 Magnesium Hydroxide (Milk Of Mag) 30 ml DAILY PRN PO .CONSTIPATION; Start 01/03/19 at 07:00 Heparin Sodium (Porcine) (Heparin (5000 Units/1ml)) 5,000 unit Q12 SC ; Start 01/03/19 at 09:00 Sodium Chloride 1,000 ml @ 75 mls/hr [id number] IV ; Start 01/03/19 at 06:57 Albuterol/ Ipratropium (Duoneb) 3 ml Q4H RESP THERAPY PRN HHN SHORTNESS OF BREATH; Start 01/03/19 at 07:00 Nitroglycerin (Nitroglycerin (Sl Tab) 0.4 Mg) 1 tab Q5M PRN SL ANGINA; Start 01/03/19 at 07:00 Diltiazem HCl (Cardizem Cd) 240 mg DAILY PO ; Start 01/03/19 at 09:30 Aspirin (Aspirin) 81 mg DAILY PO ; Start 01/03/19 at 09:30 Atorvastatin Calcium (Lipitor) 80 mg HS PO ; Start 01/03/19 at 21:00 Allergies: Coded Allergies: No Known Drug Allergies (Unverified Allergy, Unknown, 01/02/19) Social History Smoking Status: Never smoker Exam/Review of Systems Vital Signs Vitals Vital Signs Date Temp Pulse Resp B/P (MAP) Pulse Ox O2 O2 Flow FiO2 Time Delivery Rate 01/03/19 98.4 93 18 133/76 96 15:58 (95) 01/03/19 Room Air 15:30 Exam Constitutional: alert, oriented Psych: no complaints, nl mood/affect Neck: supple; No jvd Respiratory: clear to auscultation; No crackles/rales Cardiovascular: regular rate and rhythm, systolic murmur (2/6 RASHMI); No edema Gastrointestinal: soft, non-tender; No distended Neurological: nl mental status, nl speech Labs Result Diagram: 01/02/19 2212 01/02/19 2212 Results 24hrs Laboratory Tests Test 01/02/19 22:12 White Blood Count 11.3 #H Red Blood Count 5.22 # Hemoglobin 13.8 # Hematocrit 43.4 # Mean Corpuscular Volume 83.1 Mean Corpuscular Hemoglobin 26.4 L Mean Corpuscular Hemoglobin Concent 31.8 L Red Cell Distribution Width 13.2 Platelet Count 222 Mean Platelet Volume 11.9 H Immature Granulocytes % 0.400 Neutrophils % 86.2 H Lymphocytes % 9.6 L Monocytes % 3.1 Eosinophils % 0.3 Basophils % 0.4 Nucleated Red Blood Cells % 0.0 Immature Granulocytes # 0.040 H Neutrophils # 9.7 H Lymphocytes # 1.1 Monocytes # 0.4 Eosinophils # 0.0 Basophils # 0.0 Nucleated Red Blood Cells # 0.0 Sodium Level 139 Potassium Level 4.6 Chloride Level 104 Carbon Dioxide Level 25 Anion Gap 10 Blood Urea Nitrogen 14 Creatinine 0.64 Est Glomerular Filtrat Rate mL/min > 60 Glucose Level 130 Calcium Level 9.2 Total Bilirubin 0.5 Direct Bilirubin 0.00 Indirect Bilirubin 0.5 Aspartate Amino Transf (AST/SGOT) 54 H Alanine Aminotransferase (ALT/SGPT) 45 Alkaline Phosphatase 105 Troponin I < 0.012 Total Protein 8.2 H Albumin 4.7 Globulin 3.50 H Albumin/Globulin Ratio 1.34 Lipase 86 Free Thyroxine 1.15 Medications Medications Current Medications Ondansetron HCl (Zofran Inj) 4 mg ER BRIDGE PRN IV NAUSEA/VOMITING; Start 01/03/19 at 03:00; Stop 01/04/19 at 02:59 Acetaminophen (Tylenol Tab) 650 mg ER BRIDGE PRN PO .MILD PAIN 1-3 OR TEMP; Start 01/03/19 at 03:00; Stop 01/04/19 at 02:59 IV Flush (NS 3 ml) 3 ml PER PROTOCOL IV ; Start 01/03/19 at 07:00 Ondansetron HCl (Zofran Inj) 4 mg Q6H PRN IV NAUSEA/VOMITING; Start 01/03/19 at 07:00 Acetaminophen (Tylenol Tab) 650 mg Q6H PRN PO .PAIN 1-3 OR TEMP; Start 01/03/19 at 07:00 Morphine Sulfate (morphine) 2 mg Q4H PRN IV .SEVERE PAIN 7-10; Start 01/03/19 at 07:00 Docusate Sodium (Colace) 100 mg Q12H PRN PO .CONSTIPATION; Start 01/03/19 at 07:00 Magnesium Hydroxide (Milk Of Mag) 30 ml DAILY PRN PO .CONSTIPATION; Start 01/03/19 at 07:00 Heparin Sodium (Porcine) (Heparin (5000 Units/1ml)) 5,000 unit Q12 SC ; Start 01/03/19 at 09:00 Sodium Chloride 1,000 ml @ 75 mls/hr [id number] IV ; Start 01/03/19 at 06:57 Albuterol/ Ipratropium (Duoneb) 3 ml Q4H RESP THERAPY PRN HHN SHORTNESS OF BREATH; Start 01/03/19 at 07:00 Nitroglycerin (Nitroglycerin (Sl Tab) 0.4 Mg) 1 tab Q5M PRN SL ANGINA; Start 01/03/19 at 07:00 Diltiazem HCl (Cardizem Cd) 240 mg DAILY PO ; Start 01/03/19 at 09:30 Aspirin (Aspirin) 81 mg DAILY PO ; Start 01/03/19 at 09:30 Atorvastatin Calcium (Lipitor) 80 mg HS PO ; Start 01/03/19 at 21:00 NANETTE ALLEN Jan 03, 2019 17:13
[2019-01-03 19:37] VITALS: BP 120/75; PULSE 99; RESP 20
[2019-01-03 20:00] VITALS: PULSE 108
[2019-01-03] MEDS: ATORVASTATIN 80 MG TAB PO SCH (23:22)
[2019-01-04] VITALS (10 sets, daily range): BP systolic 95–122; BP diastolic 60–74; PULSE 69–119; RESP 18–22
[2019-01-04] MEDS: DILTIAZEM (CD) 240 MG CAP PO SCH (08:37)
[2019-01-04] MEDS: ASPIRIN 81 MG TAB PO SCH (08:37)
[2019-01-04] MEDS: HEPARIN 5,000 UNIT/1 ML VIAL SC SCH ×2 (08:42→20:56)
--- NOTE | 2019-01-04 12:03 | CONS ---
Assessment/Plan Assessment/Plan Hospital Course (Demo Recall) Acute left cerebellar CVA: With now apparent rheumatic mitral stenosis and atrial fibrillation, this is the cause. There is also a left-right shunt from likely PFO but I dont think this is the cause. 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 This was not well seen on echo 11/16 (I reviewed the images again) as she was significantly tachycardic so both visually and by gradients it was not seen). She can be evaluated for balloon valvuloplasty as outpt Persistent atrial fibrillation: Previously CHADSVASC 0 but now that she has rhe umatic mitral stenosis, this calculation is irrelevant and she needs anticoagulation with coumadin Presyncope/syncope: due to cerebellar CVA -when safe, transition ASA to coumadin with goal INR 2-3 (per neuro likely in 1 week) -diltiazem 240mg -neuro f/u Consultation Date/Type/Reason Admit Date/Time Jan 03, 2019 at 02:50 Initial Consult Date 01/03/19 Type of Consult Cardiology Requesting Provider: LESLYE PARKER NP Date/Time of Note DATE: 01/04/19 TIME: 12:01 24 HR Interval Summary Free Text/Dictation No events. Rate controlled afib. Daughter at bedside notes she has balance problems otherwise no complaints Exam/Review of Systems Vital Signs Vitals Vital Signs Date Temp Pulse Resp B/P (MAP) Pulse Ox O2 O2 Flow FiO2 Time Delivery Rate 01/04/19 98.6 73 22 95/60 (72) 96 11:29 01/04/19 Room Air 07:28 Intake and Output 01/03/19 01/03/19 01/04/19 1515:00 23:00 07:00 IntakeIntake Total 400 ml OutputOutput Total 500 ml BalanceBalance -100 ml Exam Constitutional: alert, oriented Psych: no complaints, nl mood/affect Neck: supple; No jvd Respiratory: clear to auscultation; No crackles/rales Cardiovascular: systolic murmur (2/6 RASHMI); No regular rate and rhythm (IRIR), No edema Gastrointestinal: soft, non-tender; No distended Neurological: nl mental status, nl speech Labs Result Diagram: 01/04/19 0540 01/04/19 0540 Results 24hrs Laboratory Tests Test 01/04/19 05:40 White Blood Count 7.6 # Red Blood Count 5.40 Hemoglobin 14.3 Hematocrit 44.6 Mean Corpuscular Volume 82.6 Mean Corpuscular Hemoglobin 26.5 L Mean Corpuscular Hemoglobin Concent 32.1 Red Cell Distribution Width 13.3 Platelet Count 231 Mean Platelet Volume 11.9 H Immature Granulocytes % 0.300 Neutrophils % 63.3 Lymphocytes % 24.5 Monocytes % 8.8 Eosinophils % 2.6 Basophils % 0.5 Nucleated Red Blood Cells % 0.0 Immature Granulocytes # 0.020 Neutrophils # 4.8 Lymphocytes # 1.9 Monocytes # 0.7 Eosinophils # 0.2 Basophils # 0.0 Nucleated Red Blood Cells # 0.0 Erythrocyte Sedimentation Rate 7 Sodium Level 140 Potassium Level 4.2 Chloride Level 107 Carbon Dioxide Level 24 Anion Gap 9 Blood Urea Nitrogen 8 Creatinine 0.72 Est Glomerular Filtrat Rate mL/min > 60 Glucose Level 97 Hemoglobin A1c 5.5 Calcium Level 9.0 Phosphorus Level 4.6 Magnesium Level 1.9 Triglycerides Level 101 Cholesterol Level 158 LDL Cholesterol, Calculated 107 HDL Cholesterol 31 L Cholesterol/HDL Ratio 5.0 Thyroid Stimulating Hormone (TSH) 2.350 Medications Medications Current Medications IV Flush (NS 3 ml) 3 ml PER PROTOCOL IV ; Start 01/03/19 at 07:00 Ondansetron HCl (Zofran Inj) 4 mg Q6H PRN IV NAUSEA/VOMITING; Start 01/03/19 at 07:00 Acetaminophen (Tylenol Tab) 650 mg Q6H PRN PO .PAIN 1-3 OR TEMP; Start 01/03/19 at 07:00 Morphine Sulfate (morphine) 2 mg Q4H PRN IV .SEVERE PAIN 7-10; Start 01/03/19 at 07:00 Docusate Sodium (Colace) 100 mg Q12H PRN PO .CONSTIPATION; Start 01/03/19 at 07:00 Magnesium Hydroxide (Milk Of Mag) 30 ml DAILY PRN PO .CONSTIPATION; Start 01/03/19 at 07:00 Heparin Sodium (Porcine) (Heparin (5000 Units/1ml)) 5,000 unit Q12 SC Last administered on 01/04/19at 08:42; Admin Dose 5,000 UNIT; Start 01/03/19 at 09:00 Albuterol/ Ipratropium (Duoneb) 3 ml Q4H RESP THERAPY PRN HHN SHORTNESS OF BREATH; Start 01/03/19 at 07:00 Nitroglycerin (Nitroglycerin (Sl Tab) 0.4 Mg) 1 tab Q5M PRN SL ANGINA; Start 01/03/19 at 07:00 Diltiazem HCl (Cardizem Cd) 240 mg DAILY PO Last administered on 01/04/19at 08:37; Admin Dose 240 MG; Start 01/03/19 at 09:30 Aspirin (Aspirin) 81 mg DAILY PO Last administered on 01/04/19at 08:37; Admin Dose 81 MG; Start 01/03/19 at 09:30 Atorvastatin Calcium (Lipitor) 80 mg HS PO Last administered on 01/03/19at 23:22; Admin Dose 80 MG; Start 01/03/19 at 21:00 NANETTE ALLEN Jan 04, 2019 12:03
--- NOTE | 2019-01-04 12:08 | PN ---
Date/Time of Note Date/Time of Note DATE: 01/04/19 TIME: 12:02 Assessment/Plan VTE Prophylaxis Risk score (from Ns)>0 risk: 8 SCD applied (from Ns): Yes Pharmacological prophylaxis: heparin Lines/Catheters IV [facility]ter [facility]from [facility] [place] Assessment/Plan Hospital Course SUBJECTIVE: no further headaches. No dizziness. No speech/vision changes.No memory loss. OBJECTIVE: Vital signs-see below PHYSICAL EXAM: Constitutional: Adequately built,not in acute distress. HEENT: Head atraumatic and normocephalic. Eyes: Extraocular muscles intact. Anicteric sclerae. Pupils equal bilaterally, reactive to light. NECK: Supple without lymph node. CHEST: Clear and good breath sounds equally. No wheezing. No rhonchi. HEART: S1, S2. Regular rate and rhythm. ABDOMEN: Soft/non tender with no rebound tenderness. Bowel sounds were present. EXTREMITIES: No cyanosis, clubbing or edema. NEUROLOGIC: Alert and oriented x3. No focal deficit. No sensory deficit. PSYCHOSOCIAL: No signs of depression. INTEGUMENTARY: No open wounds. ASSESSMENT AND PLAN:63 yo F w/afib here after she passed out for about 2 seconds found to have acute stroke Acute left cerebellar stroke,outside t PA candidate. -No focal deficit. CTA negative for major vessel occlusions. -Continue aspirin/high intensity statin -PT/OT eval and treat -Follow-up neurology recommendations Atrial fibrillation -In light of acute stroke, anticoagulation is warranted. Defer to neurology discretion when appropriate. Most likely in 1 week after acute CVA. Patient would need Coumadin in light of severe mitral stenosis. -Rate control. Continue Cardizem -Appreciates cardiology recommendations DVT prophylaxis: Heparin Disposition: Continue with physical therapy evaluation. Follow-up neurology recommendations. Monitor telemetry. Remains asymptomatic, likely DC planning in a.m. with outpatient neurology/cardiology follow up for initiation of Coumadin Patient was seen in collaboration with Dr. Guerrero. Result Diagram: 01/04/19 0540 01/04/19 0540 Results 24hrs Laboratory Tests Test 01/04/19 05:40 White Blood Count 7.6 # Red Blood Count 5.40 Hemoglobin 14.3 Hematocrit 44.6 Mean Corpuscular Volume 82.6 Mean Corpuscular Hemoglobin 26.5 L Mean Corpuscular Hemoglobin Concent 32.1 Red Cell Distribution Width 13.3 Platelet Count 231 Mean Platelet Volume 11.9 H Immature Granulocytes % 0.300 Neutrophils % 63.3 Lymphocytes % 24.5 Monocytes % 8.8 Eosinophils % 2.6 Basophils % 0.5 Nucleated Red Blood Cells % 0.0 Immature Granulocytes # 0.020 Neutrophils # 4.8 Lymphocytes # 1.9 Monocytes # 0.7 Eosinophils # 0.2 Basophils # 0.0 Nucleated Red Blood Cells # 0.0 Erythrocyte Sedimentation Rate 7 Sodium Level 140 Potassium Level 4.2 Chloride Level 107 Carbon Dioxide Level 24 Anion Gap 9 Blood Urea Nitrogen 8 Creatinine 0.72 Est Glomerular Filtrat Rate mL/min > 60 Glucose Level 97 Hemoglobin A1c 5.5 Calcium Level 9.0 Phosphorus Level 4.6 Magnesium Level 1.9 Triglycerides Level 101 Cholesterol Level 158 LDL Cholesterol, Calculated 107 HDL Cholesterol 31 L Cholesterol/HDL Ratio 5.0 Thyroid Stimulating Hormone (TSH) 2.350 Exam/Review of Systems Exam Vitals Vital Signs Date Temp Pulse Resp B/P (MAP) Pulse Ox O2 O2 Flow FiO2 Time Delivery Rate 01/04/19 98.6 73 22 95/60 (72) 96 11:29 01/04/19 Room Air 07:28 Intake and Output 01/03/19 01/03/19 01/04/19 1515:00 23:00 07:00 IntakeIntake Total 400 ml OutputOutput Total 500 ml BalanceBalance -100 ml Results Results 24hrs Laboratory Tests Test 01/04/19 05:40 White Blood Count 7.6 # Red Blood Count 5.40 Hemoglobin 14.3 Hematocrit 44.6 Mean Corpuscular Volume 82.6 Mean Corpuscular Hemoglobin 26.5 L Mean Corpuscular Hemoglobin Concent 32.1 Red Cell Distribution Width 13.3 Platelet Count 231 Mean Platelet Volume 11.9 H Immature Granulocytes % 0.300 Neutrophils % 63.3 Lymphocytes % 24.5 Monocytes % 8.8 Eosinophils % 2.6 Basophils % 0.5 Nucleated Red Blood Cells % 0.0 Immature Granulocytes # 0.020 Neutrophils # 4.8 Lymphocytes # 1.9 Monocytes # 0.7 Eosinophils # 0.2 Basophils # 0.0 Nucleated Red Blood Cells # 0.0 Erythrocyte Sedimentation Rate 7 Sodium Level 140 Potassium Level 4.2 Chloride Level 107 Carbon Dioxide Level 24 Anion Gap 9 Blood Urea Nitrogen 8 Creatinine 0.72 Est Glomerular Filtrat Rate mL/min > 60 Glucose Level 97 Hemoglobin A1c 5.5 Calcium Level 9.0 Phosphorus Level 4.6 Magnesium Level 1.9 Triglycerides Level 101 Cholesterol Level 158 LDL Cholesterol, Calculated 107 HDL Cholesterol 31 L Cholesterol/HDL Ratio 5.0 Thyroid Stimulating Hormone (TSH) 2.350 Medications Medication Current Medications IV Flush (NS 3 ml) 3 ml PER PROTOCOL IV ; Start 01/03/19 at 07:00 Ondansetron HCl (Zofran Inj) 4 mg Q6H PRN IV NAUSEA/VOMITING; Start 01/03/19 at 07:00 Acetaminophen (Tylenol Tab) 650 mg Q6H PRN PO .PAIN 1-3 OR TEMP; Start 01/03/19 at 07:00 Morphine Sulfate (morphine) 2 mg Q4H PRN IV .SEVERE PAIN 7-10; Start 01/03/19 at 07:00 Docusate Sodium (Colace) 100 mg Q12H PRN PO .CONSTIPATION; Start 01/03/19 at 07:00 Magnesium Hydroxide (Milk Of Mag) 30 ml DAILY PRN PO .CONSTIPATION; Start 01/03/19 at 07:00 Heparin Sodium (Porcine) (Heparin (5000 Units/1ml)) 5,000 unit Q12 SC Last administered on 01/04/19at 08:42; Admin Dose 5,000 UNIT; Start 01/03/19 at 09:00 Albuterol/ Ipratropium (Duoneb) 3 ml Q4H RESP THERAPY PRN HHN SHORTNESS OF BREATH; Start 01/03/19 at 07:00 Nitroglycerin (Nitroglycerin (Sl Tab) 0.4 Mg) 1 tab Q5M PRN SL ANGINA; Start 01/03/19 at 07:00 Diltiazem HCl (Cardizem Cd) 240 mg DAILY PO Last administered on 01/04/19at 08:37; Admin Dose 240 MG; Start 01/03/19 at 09:30 Aspirin (Aspirin) 81 mg DAILY PO Last administered on 01/04/19at 08:37; Admin Dose 81 MG; Start 01/03/19 at 09:30 Atorvastatin Calcium (Lipitor) 80 mg HS PO Last administered on 01/03/19at 23:22; Admin Dose 80 MG; Start 01/03/19 at 21:00 LESLYE PARKER NP Jan 04, 2019 12:08
--- NOTE | 2019-01-04 12:34 | CONS ---
Assessment/Plan Assessment/Plan Assessment/Plan (Recall) 63 yo F with hx of afib and other comorbidities who presents for evaluation of vertigo with ?transient LOC. MRI brain confirmed an acute L cerebellar infarct... for which neurology is consulted. CTA H/N are without evidence of intracranial athero or stenoses, though notable for the acute infarct. 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 a likely contributor. EKG is notable for afib... a possible contributor as well. ESR 7 P: Ok to defer additional neuroimaging Cont ASA/Lipitor for secondary stroke prevention Await RPR Cont BP and other medical management per primary PT/OT/ST as necessary Will follow clinically, to recommend neurologic studies, as necessary Consultation Date/Type/Reason Admit Date/Time Jan 03, 2019 at 02:50 Type of Consult Neurology Reason for Consultation stroke Requesting Provider: LESLYE PARKER NP Date/Time of Note DATE: 01/04/19 TIME: 12:34 24 HR Interval Summary Free Text/Dictation Continues acute care. Per physical therapy, they state that the pt has severe dizziness while walking, unsteady gait, and is concerned about her risk of falls. Pt continues to endorse dizziness today. Exam/Review of Systems Exam Vitals Vital Signs Date Temp Pulse Resp B/P (MAP) Pulse Ox O2 O2 Flow FiO2 Time Delivery Rate 01/04/19 98.6 73 22 95/60 (72) 96 11:29 01/04/19 Room Air 07:28 Intake and Output 01/03/19 01/03/19 01/04/19 1515:00 23:00 07:00 IntakeIntake Total 400 ml OutputOutput Total 500 ml BalanceBalance -100 ml Exam PE: Gen Appearance: No Apparent Distress HEENT: Normocephalic Cardiovascular: Regular rate Lungs: Clear bilaterally Abdomen: Soft Extremities: Dry NE: The patient was alert and oriented to self and place. Language was normal. Fund of knowledge was limited.. Pupils were equal and reactive to light. There was no afferent pupillary defect. Visual shipley were normal. Funduscopic examination was limited. Extra-ocular movements were full. Ptosis was absent. There was no nystagmus. Facial sensation was normal. Face was symmetric with normal strength. Hearing was intact. Palate movements were normal. Neck strength was normal. There was normal tongue bulk and speed of movement. Tone was normal. Muscle bulk was normal. I did not see fasciculations. Arms and legs were strong. Vibration sensation was normal. Temperature and pinprick sensation was normal. Rapid alternating movements were normal. There was slight dysmetria on the R. There was no intention tremor. Gait was deferred due to bedrest. Arm and leg reflexes were 2+ and symmetric. Maya's sign was absent. Plantar responses were flexor. Results Result Diagram: 01/04/19 0540 01/04/19 0540 Results 24hrs Laboratory Tests Test 01/04/19 05:40 White Blood Count 7.6 # Red Blood Count 5.40 Hemoglobin 14.3 Hematocrit 44.6 Mean Corpuscular Volume 82.6 Mean Corpuscular Hemoglobin 26.5 L Mean Corpuscular Hemoglobin Concent 32.1 Red Cell Distribution Width 13.3 Platelet Count 231 Mean Platelet Volume 11.9 H Immature Granulocytes % 0.300 Neutrophils % 63.3 Lymphocytes % 24.5 Monocytes % 8.8 Eosinophils % 2.6 Basophils % 0.5 Nucleated Red Blood Cells % 0.0 Immature Granulocytes # 0.020 Neutrophils # 4.8 Lymphocytes # 1.9 Monocytes # 0.7 Eosinophils # 0.2 Basophils # 0.0 Nucleated Red Blood Cells # 0.0 Erythrocyte Sedimentation Rate 7 Sodium Level 140 Potassium Level 4.2 Chloride Level 107 Carbon Dioxide Level 24 Anion Gap 9 Blood Urea Nitrogen 8 Creatinine 0.72 Est Glomerular Filtrat Rate mL/min > 60 Glucose Level 97 Hemoglobin A1c 5.5 Calcium Level 9.0 Phosphorus Level 4.6 Magnesium Level 1.9 Triglycerides Level 101 Cholesterol Level 158 LDL Cholesterol, Calculated 107 HDL Cholesterol 31 L Cholesterol/HDL Ratio 5.0 Thyroid Stimulating Hormone (TSH) 2.350 Medications Medication Current Medications IV Flush (NS 3 ml) 3 ml PER PROTOCOL IV ; Start 01/03/19 at 07:00 Ondansetron HCl (Zofran Inj) 4 mg Q6H PRN IV NAUSEA/VOMITING; Start 01/03/19 at 07:00 Acetaminophen (Tylenol Tab) 650 mg Q6H PRN PO .PAIN 1-3 OR TEMP; Start 01/03/19 at 07:00 Morphine Sulfate (morphine) 2 mg Q4H PRN IV .SEVERE PAIN 7-10; Start 01/03/19 at 07:00 Docusate Sodium (Colace) 100 mg Q12H PRN PO .CONSTIPATION; Start 01/03/19 at 07:00 Magnesium Hydroxide (Milk Of Mag) 30 ml DAILY PRN PO .CONSTIPATION; Start 01/03/19 at 07:00 Heparin Sodium (Porcine) (Heparin (5000 Units/1ml)) 5,000 unit Q12 SC Last ad ministered on 01/04/19at 08:42; Admin Dose 5,000 UNIT; Start 01/03/19 at 09:00 Albuterol/ Ipratropium (Duoneb) 3 ml Q4H RESP THERAPY PRN HHN SHORTNESS OF BREATH; Start 01/03/19 at 07:00 Nitroglycerin (Nitroglycerin (Sl Tab) 0.4 Mg) 1 tab Q5M PRN SL ANGINA; Start 01/03/19 at 07:00 Diltiazem HCl (Cardizem Cd) 240 mg DAILY PO Last administered on 01/04/19at 08:37; Admin Dose 240 MG; Start 01/03/19 at 09:30 Aspirin (Aspirin) 81 mg DAILY PO Last administered on 01/04/19at 08:37; Admin Dose 81 MG; Start 01/03/19 at 09:30 Atorvastatin Calcium (Lipitor) 80 mg HS PO Last administered on 01/03/19at 23:22; Admin Dose 80 MG; Start 01/03/19 at 21:00 CODY SANTIAGO NP Jan 04, 2019 12:34 SHERIN DOOLEY Jan 04, 2019 17:12
[2019-01-04] MEDS: ATORVASTATIN 80 MG TAB PO SCH (20:49)
[2019-01-05] VITALS (12 sets, daily range): BP systolic 92–119; BP diastolic 62–86; PULSE 68–151; RESP 17–22
[2019-01-05] MEDS: DILTIAZEM (CD) 240 MG CAP PO SCH (09:34)
[2019-01-05] MEDS: ASPIRIN 81 MG TAB PO SCH (09:34)
[2019-01-05] MEDS: HEPARIN 5,000 UNIT/1 ML VIAL SC SCH ×2 (09:46→21:02)
--- NOTE | 2019-01-05 13:42 | CONS ---
Assessment/Plan Assessment/Plan Assessment/Plan (Recall) 63 yo F with hx of afib and other comorbidities who presents for evaluation of vertigo with ?transient LOC. MRI brain confirmed an acute L cerebellar infarct... for which neurology is consulted. CTA H/N are without evidence of intracranial athero or stenoses, though notable for the acute infarct. 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 a likely contributor. EKG is notable for afib... a possible contributor as well. ESR 7, RPR neg P: OK to defer additional neuroimaging Cont ASA/Lipitor for secondary stroke prevention Cont BP and other medical management per primary PT/OT/ST as necessary Will follow clinically Consultation Date/Type/Reason Admit Date/Time Jan 03, 2019 at 02:50 Type of Consult Neurology Reason for Consultation stroke Requesting Provider: LESLYE PARKER NP Date/Time of Note DATE: 01/05/19 TIME: 13:41 24 HR Interval Summary Free Text/Dictation Continues acute care Exam/Review of Systems Exam Vitals Vital Signs Date Temp Pulse Resp B/P (MAP) Pulse Ox O2 O2 Flow FiO2 Time Delivery Rate 01/05/19 143 12:01 01/05/19 98.0 22 106/78 96 Room Air 12:00 (87) Intake and Output 01/04/19 01/04/19 01/05/19 1515:00 23:00 07:00 IntakeIntake Total 850 ml 600 ml BalanceBalance 850 ml 600 ml Exam Comprehensive completed; stable from prior. Results Result Diagram: 01/05/19 0429 01/05/19 0429 Results 24hrs Laboratory Tests Test 01/05/19 04:29 White Blood Count 10.5 # Red Blood Count 5.18 Hemoglobin 13.9 Hematocrit 42.9 Mean Corpuscular Volume 82.8 Mean Corpuscular Hemoglobin 26.8 L Mean Corpuscular Hemoglobin Concent 32.4 Red Cell Distribution Width 13.1 Platelet Count 223 Mean Platelet Volume 12.5 H Immature Granulocytes % 0.300 Neutrophils % 74.7 Lymphocytes % 14.1 L Monocytes % 8.2 Eosinophils % 2.1 Basophils % 0.6 Nucleated Red Blood Cells % 0.0 Immature Granulocytes # 0.030 Neutrophils # 7.9 H Lymphocytes # 1.5 Monocytes # 0.9 Eosinophils # 0.2 Basophils # 0.1 Nucleated Red Blood Cells # 0.0 Sodium Level 142 Potassium Level 3.9 Chloride Level 107 Carbon Dioxide Level 26 Anion Gap 9 Blood Urea Nitrogen 13 Creatinine 0.68 Est Glomerular Filtrat Rate mL/min > 60 Glucose Level 94 Calcium Level 8.8 Medications Medication Current Medications IV Flush (NS 3 ml) 3 ml PER PROTOCOL IV ; Start 01/03/19 at 07:00 Ondansetron HCl (Zofran Inj) 4 mg Q6H PRN IV NAUSEA/VOMITING; Start 01/03/19 at 07:00 Acetaminophen (Tylenol Tab) 650 mg Q6H PRN PO .PAIN 1-3 OR TEMP; Start 01/03/19 at 07:00 Morphine Sulfate (morphine) 2 mg Q4H PRN IV .SEVERE PAIN 7-10; Start 01/03/19 at 07:00 Docusate Sodium (Colace) 100 mg Q12H PRN PO .CONSTIPATION; Start 01/03/19 at 07:00 Magnesium Hydroxide (Milk Of Mag) 30 ml DAILY PRN PO .CONSTIPATION; Start 01/03/19 at 07:00 Heparin Sodium (Porcine) (Heparin (5000 Units/1ml)) 5,000 unit Q12 SC Last administered on 01/05/19 09:46; Admin Dose 5,000 UNIT; Start 01/03/19 at 09:00 Albuterol/ Ipratropium (Duoneb) 3 ml Q4H RESP THERAPY PRN HHN SHORTNESS OF BREATH; Start 01/03/19 at 07:00 Nitroglycerin (Nitroglycerin (Sl Tab) 0.4 Mg) 1 tab Q5M PRN SL ANGINA; Start 01/03/19 at 07:00 Diltiazem HCl (Cardizem Cd) 240 mg DAILY PO Last administered on 01/05/19 09:34; Admin Dose 240 MG; Start 01/03/19 at 09:30 Aspirin (Aspirin) 81 mg DAILY PO Last administered on 01/05/19 09:34; Admin Dose 81 MG; Start 01/03/19 at 09:30 Atorvastatin Calcium (Lipitor) 80 mg HS PO Last administered on 01/04/19 20:49; Admin Dose 80 MG; Start 01/03/19 at 21:00 SHERIN DOOLEY Jan 05, 2019 13:42
--- NOTE | 2019-01-05 15:11 | PN ---
Date/Time of Note Date/Time of Note DATE: 01/05/19 TIME: 15:09 Assessment/Plan VTE Prophylaxis Risk score [place]from [facility] [place]0 risk: 2 SCD applied (from [facility] [place]): No SCD contraindicated: low risk/ambulating Pharmacological prophylaxis: NA/contraindicated Pharm contraindication: low risk/ambulating, other (Acute cerebellar CVA) Lines/Catheters IV Catheter Type (from [email or web address] Saline Lock Urinary Cath still in place: No Assessment/Plan Problems: (1) Acute cerebrovascular accident (CVA) of cerebellum Status: Acute Comment: She is progressing nicely. Please note due to the acuity of the CVA anticoagulations temporarily on hold, neurology will tell us when we can proceed to anticoagulate her. (2) Chronic atrial fibrillation Status: Chronic Comment: Noted. This combined with the mitral valve lesion will indicate an absolute need for anticoagulation unless there is a powerful contraindication. Once cleared by neurology to begin the anticoagulation we will do that. (3) Rheumatic mitral stenosis Status: Chronic Comment: Noted. Once stabilized she can be looked at for possible mitral valve intervention. (4) Patent foramen ovale Status: Chronic Comment: Noted. (5) Interatrial cardiac shunt Status: Chronic Comment: Left to right shunt (6) Anemia Status: Chronic Comment: Noted. Qualifiers: Anemia type: unspecified type Qualified Codes: D64.9 - Anemia, unspecified Result Diagram: 01/05/199 01/05/19428 Results 24hrs Laboratory Tests Test 01/05/19 04:29 White Blood Count 10.5 # Red Blood Count 5.18 Hemoglobin 13.9 Hematocrit 42.9 Mean Corpuscular Volume 82.8 Mean Corpuscular Hemoglobin 26.8 L Mean Corpuscular Hemoglobin Concent 32.4 Red Cell Distribution Width 13.1 Platelet Count 223 Mean Platelet Volume 12.5 H Immature Granulocytes % 0.300 Neutrophils % 74.7 Lymphocytes % 14.1 L Monocytes % 8.2 Eosinophils % 2.1 Basophils % 0.6 Nucleated Red Blood Cells % 0.0 Immature Granulocytes # 0.030 Neutrophils # 7.9 H Lymphocytes # 1.5 Monocytes # 0.9 Eosinophils # 0.2 Basophils # 0.1 Nucleated Red Blood Cells # 0.0 Sodium Level 142 Potassium Level 3.9 Chloride Level 107 Carbon Dioxide Level 26 Anion Gap 9 Blood Urea Nitrogen 13 Creatinine 0.68 Est Glomerular Filtrat Rate mL/min > 60 Glucose Level 94 Calcium Level 8.8 Subjective 24 Hr Interval Summary Free Text/Dictation Patient reports that she still gets a little bit of unsteadiness on standing. No new neurologic symptoms Constitutional: no complaints Respiratory: no complaints Cardiovascular: no complaints Gastrointestinal: no complaints Exam/Review of Systems Exam Vitals Vital Signs Date Temp Pulse Resp B/P (MAP) Pulse Ox O2 O2 Flow FiO2 Time Delivery Rate 01/05/19 143 12:01 01/05/19 98.0 22 106/78 96 Room Air 12:00 (87) Intake and Output 01/04/19 01/04/19 01/05/19 1515:00 23:00 07:00 IntakeIntake Total 850 ml 600 ml BalanceBalance 850 ml 600 ml Constitutional: alert, oriented Respiratory: clear to auscultation, normal air movement Cardiovascular: nl pulses, irregular rhythm, murmurs/extra sounds Gastrointestinal: soft, nl liver, spleen, non-tender Results Results 24hrs Laboratory Tests Test 01/05/19 04:29 White Blood Count 10.5 # Red Blood Count 5.18 Hemoglobin 13.9 Hematocrit 42.9 Mean Corpuscular Volume 82.8 Mean Corpuscular Hemoglobin 26.8 L Mean Corpuscular Hemoglobin Concent 32.4 Red Cell Distribution Width 13.1 Platelet Count 223 Mean Platelet Volume 12.5 H Immature Granulocytes % 0.300 Neutrophils % 74.7 Lymphocytes % 14.1 L Monocytes % 8.2 Eosinophils % 2.1 Basophils % 0.6 Nucleated Red Blood Cells % 0.0 Immature Granulocytes # 0.030 Neutrophils # 7.9 H Lymphocytes # 1.5 Monocytes # 0.9 Eosinophils # 0.2 Basophils # 0.1 Nucleated Red Blood Cells # 0.0 Sodium Level 142 Potassium Level 3.9 Chloride Level 107 Carbon Dioxide Level 26 Anion Gap 9 Blood Urea Nitrogen 13 Creatinine 0.68 Est Glomerular Filtrat Rate mL/min > 60 Glucose Level 94 Calcium Level 8.8 Medications Medication Current Medications IV Flush (NS 3 ml) 3 ml PER PROTOCOL IV ; Start 01/03/19 at 07:00 Ondansetron HCl (Zofran Inj) 4 mg Q6H PRN IV NAUSEA/VOMITING; Start 01/03/19 at 07:00 Acetaminophen (Tylenol Tab) 650 mg Q6H PRN PO .PAIN 1-3 OR TEMP; Start 01/03/19 at 07:00 Morphine Sulfate (morphine) 2 mg Q4H PRN IV .SEVERE PAIN 7-10; Start 01/03/19 at 07:00 Docusate Sodium (Colace) 100 mg Q12H PRN PO .CONSTIPATION; Start 01/03/19 at 07:00 Magnesium Hydroxide (Milk Of Mag) 30 ml DAILY PRN PO .CONSTIPATION; Start 01/03/19 at 07:00 Heparin Sodium (Porcine) (Heparin (5000 Units/1ml)) 5,000 unit Q12 SC Last administered on 01/05/19 09:46; Admin Dose 5,000 UNIT; Start 01/03/19 at 09:00 Albuterol/ Ipratropium (Duoneb) 3 ml Q4H RESP THERAPY PRN HHN SHORTNESS OF BREATH; Start 01/03/19 at 07:00 Nitroglycerin (Nitroglycerin (Sl Tab) 0.4 Mg) 1 tab Q5M PRN SL ANGINA; Start 01/03/19 at 07:00 Diltiazem HCl (Cardizem Cd) 240 mg DAILY PO Last administered on 01/05/19 09:34; Admin Dose 240 MG; Start 01/03/19 at 09:30 Aspirin (Aspirin) 81 mg DAILY PO Last administered on 01/05/19 09:34; Admin D ose 81 MG; Start 01/03/19 at 09:30 Atorvastatin Calcium (Lipitor) 80 mg HS PO Last administered on 01/04/19 20:49; Admin Dose 80 MG; Start 01/03/19 at 21:00 DANIEL DUNN MD Jan 05, 2019 15:11
[2019-01-05] MEDS: ATORVASTATIN 80 MG TAB PO SCH (20:55)
[2019-01-06] VITALS (11 sets, daily range): BP systolic 81–152; BP diastolic 61–89; PULSE 62–146; RESP 18–22
--- NOTE | 2019-01-06 08:55 | PN ---
Date/Time of Note Date/Time of Note DATE: 01/06/19 TIME: 08:52 Assessment/Plan VTE Prophylaxis [place] [facility] [place] risk: 2 SCD applied ([place] [facility] [place] No SCD contraindicated: low risk/ambulating Pharmacological prophylaxis: heparin Pharm contraindication: low risk/ambulating Lines/Catheters IV [facility] Type ([facility] Saline Lock Urinary Cath still in place: No Assessment/Plan Problems: (1) Acute cerebrovascular accident (CVA) of cerebellum Status: Acute Comment: Progressing nicely. Neurology will give us a formalized clearance about anticoagulant therapy. Needs formal anticoagulation given the rheumatic mitral valve disease and atrial fibrillation (2) Rheumatic mitral stenosis Status: Chronic Comment: To initiate formalized anticoagulation shortly (3) Patent foramen ovale Status: Chronic Comment: Noted. (4) Interatrial cardiac shunt Status: Chronic Comment: Noted this left to right shunt. (5) Chronic atrial fibrillation Status: Chronic Comment: For anticoagulation shortly (6) Anemia Status: Chronic Comment: Noted. Qualifiers: Anemia type: unspecified type Qualified Codes: D64.9 - Anemia, unspecified Result Diagram: 01/06/19 0510 01/06/19 0510 Results 24hrs Laboratory Tests Test 01/06/19 05:10 White Blood Count 8.7 Red Blood Count 5.30 Hemoglobin 13.8 Hematocrit 43.6 Mean Corpuscular Volume 82.3 Mean Corpuscular Hemoglobin 26.0 L Mean Corpuscular Hemoglobin Concent 31.7 L Red Cell Distribution Width 13.4 Platelet Count 217 Mean Platelet Volume 12.8 H Immature Granulocytes % 0.300 Neutrophils % 68.2 Lymphocytes % 18.3 Monocytes % 10.0 Eosinophils % 2.4 Basophils % 0.8 Nucleated Red Blood Cells % 0.0 Immature Granulocytes # 0.030 Neutrophils # 5.9 Lymphocytes # 1.6 Monocytes # 0.9 Eosinophils # 0.2 Basophils # 0.1 Nucleated Red Blood Cells # 0.0 Sodium Level 140 Potassium Level 4.2 Chloride Level 104 Carbon Dioxide Level 28 Anion Gap 8 Blood Urea Nitrogen 13 Creatinine 0.76 Est Glomerular Filtrat Rate mL/min > 60 Glucose Level 92 Calcium Level 9.0 Subjective 24 Hr Interval Summary Free Text/Dictation Patient reports that she feels okay a little bit stronger and less dizziness and unsteadiness Constitutional: no complaints Respiratory: no complaints Cardiovascular: no complaints Gastrointestinal: no complaints Exam/Review of Systems Exam Vitals Vital Signs Date Temp Pulse Resp B/P (MAP) Pulse Ox O2 O2 Flow FiO2 Time Delivery Rate 01/06/19 98.1 101 22 81/61 (68) 96 Room Air 07:34 Intake and Output 01/05/19 01/05/19 01/06/19 1515:00 23:00 07:00 IntakeIntake Total 980 ml 200 ml BalanceBalance 980 ml 200 ml Constitutional: alert, oriented Neck: supple, non-tender Respiratory: clear to auscultation, normal air movement Cardiovascular: nl pulses, irregular rhythm, murmurs/extra sounds Gastrointestinal: soft, nl liver, spleen, non-tender Results Results 24hrs Laboratory Tests Test 01/06/19 05:10 White Blood Count 8.7 Red Blood Count 5.30 Hemoglobin 13.8 Hematocrit 43.6 Mean Corpuscular Volume 82.3 Mean Corpuscular Hemoglobin 26.0 L Mean Corpuscular Hemoglobin Concent 31.7 L Red Cell Distribution Width 13.4 Platelet Count 217 Mean Platelet Volume 12.8 H Immature Granulocytes % 0.300 Neutrophils % 68.2 Lymphocytes % 18.3 Monocytes % 10.0 Eosinophils % 2.4 Basophils % 0.8 Nucleated Red Blood Cells % 0.0 Immature Granulocytes # 0.030 Neutrophils # 5.9 Lymphocytes # 1.6 Monocytes # 0.9 Eosinophils # 0.2 Basophils # 0.1 Nucleated Red Blood Cells # 0.0 Sodium Level 140 Potassium Level 4.2 Chloride Level 104 Carbon Dioxide Level 28 Anion Gap 8 Blood Urea Nitrogen 13 Creatinine 0.76 Est Glomerular Filtrat Rate mL/min > 60 Glucose Level 92 Calcium Level 9.0 Medications Medication Current Medications IV Flush (NS 3 ml) 3 ml PER PROTOCOL IV ; Start 01/03/19 at 07:00 Ondansetron HCl (Zofran Inj) 4 mg Q6H PRN IV NAUSEA/VOMITING; Start 01/03/19 at 07:00 Acetaminophen (Tylenol Tab) 650 mg Q6H PRN PO .PAIN 1-3 OR TEMP; Start 01/03/19 at 07:00 Morphine Sulfate (morphine) 2 mg Q4H PRN IV .SEVERE PAIN 7-10; Start 01/03/19 at 07:00 Docusate Sodium (Colace) 100 mg Q12H PRN PO .CONSTIPATION; Start 01/03/19 at 07:00 Magnesium Hydroxide (Milk Of Mag) 30 ml DAILY PRN PO .CONSTIPATION; Start 01/03/19 at 07:00 Heparin Sodium (Porcine) (Heparin (5000 Units/1ml)) 5,000 unit Q12 SC Last administered on 01/05/19 21:02; Admin Dose 5,000 UNIT; Start 01/03/19 at 09:00 Albuterol/ Ipratropium (Duoneb) 3 ml Q4H RESP THERAPY PRN HHN SHORTNESS OF BREATH; Start 01/03/19 at 07:00 Nitroglycerin (Nitroglycerin (Sl Tab) 0.4 Mg) 1 tab Q5M PRN SL ANGINA; Start 01/03/19 at 07:00 Diltiazem HCl (Cardizem Cd) 240 mg DAILY PO Last administered on 01/05/19 09:34; Admin Dose 240 MG; Start 01/03/19 at 09:30 Aspirin (Aspirin) 81 mg DAILY PO Last administered on 01/05/19 09:34; Admin Dose 81 MG; Start 01/03/19 at 09:30 Atorvastatin Calcium (Lipitor) 80 mg HS PO Last administered on 01/05/19 20:55; Admin Dose 80 MG; Start 01/03/19 at 21:00 DANIEL DUNN MD Jan 06, 2019 08:55
[2019-01-06] MEDS: DILTIAZEM (CD) 240 MG CAP PO SCH ×2 (09:00→12:12)
[2019-01-06] MEDS: ASPIRIN 81 MG TAB PO SCH (09:22)
--- NOTE | 2019-01-06 11:31 | CONS ---
Assessment/Plan Assessment/Plan Assessment/Plan (Recall) 63 yo F with hx of afib and other comorbidities who presents for evaluation of vertigo with ?transient LOC. MRI brain confirmed an acute L cerebellar infarct... for which neurology is consulted. EKG is notable for afib. CTA H/N are without evidence of intracranial athero or stenoses, though notable for the acute infarct. Echo is most notable for rheumatic mitral valve stenosis. ESR 7, RPR neg P: Cont ASA/Lipitor for secondary stroke prevention in the short-term; agree w/ transition from asa to warfarin to begin 7-10 days following acute infarct PT/OT/ST as necessary Cont BP and other medical management per primary Will follow clinically Consultation Date/Type/Reason Admit Date/Time Jan 03, 2019 at 02:50 Type of Consult Neurology Reason for Consultation stroke Requesting Provider: LESLYE PARKER NP Date/Time of Note DATE: 01/06/19 TIME: 11:29 24 HR Interval Summary Free Text/Dictation Continues acute care Exam/Review of Systems Exam Vitals Vital Signs Date Temp Pulse Resp B/P (MAP) Pulse Ox O2 O2 Flow FiO2 Time Delivery Rate 01/06/19 118 08:00 01/06/19 98.1 22 81/61 (68) 96 Room Air 07:34 Intake and Output 01/05/19 01/05/19 01/06/19 1515:00 23:00 07:00 IntakeIntake Total 980 ml 200 ml BalanceBalance 980 ml 200 ml Results Result Diagram: 01/06/19 0510 01/06/19 0510 Results 24hrs Laboratory Tests Test 01/06/19 05:10 White Blood Count 8.7 Red Blood Count 5.30 Hemoglobin 13.8 Hematocrit 43.6 Mean Corpuscular Volume 82.3 Mean Corpuscular Hemoglobin 26.0 L Mean Corpuscular Hemoglobin Concent 31.7 L Red Cell Distribution Width 13.4 Platelet Count 217 Mean Platelet Volume 12.8 H Immature Granulocytes % 0.300 Neutrophils % 68.2 Lymphocytes % 18.3 Monocytes % 10.0 Eosinophils % 2.4 Basophils % 0.8 Nucleated Red Blood Cells % 0.0 Immature Granulocytes # 0.030 Neutrophils # 5.9 Lymphocytes # 1.6 Monocytes # 0.9 Eosinophils # 0.2 Basophils # 0.1 Nucleated Red Blood Cells # 0.0 Sodium Level 140 Potassium Level 4.2 Chloride Level 104 Carbon Dioxide Level 28 Anion Gap 8 Blood Urea Nitrogen 13 Creatinine 0.76 Est Glomerular Filtrat Rate mL/min > 60 Glucose Level 92 Calcium Level 9.0 Medications Medication Current Medications IV Flush (NS 3 ml) 3 ml PER PROTOCOL IV ; Start 01/03/19 at 07:00 Ondansetron HCl (Zofran Inj) 4 mg Q6H PRN IV NAUSEA/VOMITING; Start 01/03/19 at 07:00 Acetaminophen (Tylenol Tab) 650 mg Q6H PRN PO .PAIN 1-3 OR TEMP; Start 01/03/19 at 07:00 Morphine Sulfate (morphine) 2 mg Q4H PRN IV .SEVERE PAIN 7-10; Start 01/03/19 at 07:00 Docusate Sodium (Colace) 100 mg Q12H PRN PO .CONSTIPATION; Start 01/03/19 at 07:00 Magnesium Hydroxide (Milk Of Mag) 30 ml DAILY PRN PO .CONSTIPATION; Start 01/03/19 at 07:00 Heparin Sodium (Porcine) (Heparin (5000 Units/1ml)) 5,000 unit Q12 SC Last administered on 01/05/19at 21:02; Admin Dose 5,000 UNIT; Start 01/03/19 at 09:00 Albuterol/ Ipratropium (Duoneb) 3 ml Q4H RESP THERAPY PRN HHN SHORTNESS OF BREATH; Start 01/03/19 at 07:00 Nitroglycerin (Nitroglycerin (Sl Tab) 0.4 Mg) 1 tab Q5M PRN SL ANGINA; Start 01/03/19 at 07:00 Diltiazem HCl (Cardizem Cd) 240 mg DAILY PO Last administered on 01/05/19at 09:34 ; Admin Dose 240 MG; Start 01/03/19 at 09:30 Aspirin (Aspirin) 81 mg DAILY PO Last administered on 01/06/19 09:22; Admin Dose 81 MG; Start 01/03/19 at 09:30 Atorvastatin Calcium (Lipitor) 80 mg HS PO Last administered on 01/05/19at 20:55; Admin Dose 80 MG; Start 01/03/19 at 21:00 SHERIN DOOLEY Jan 06, 2019 11:31
[2019-01-06] MEDS: HEPARIN 5,000 UNIT/1 ML VIAL SC SCH ×2 (12:22→20:22)
[2019-01-06] MEDS: NITROGLYCERIN (SL) 0.4 MG TAB SL PRN (14:37)
--- NOTE | 2019-01-06 15:42 | CONS ---
Assessment/Plan Assessment/Plan Hospital Course (Demo Recall) Acute left cerebellar CVA: With now apparent rheumatic mitral stenosis and atrial fibrillation, this is the cause. There is also a left-right shunt from likely PFO but I dont think this is the cause. 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 This was not well seen on echo 11/16 (I reviewed the images again) as she was significantly tachycardic so both visually and by gradients it was not seen). She can be evaluated for balloon valvuloplasty as outpt Persistent atrial fibrillation: Previously CHADSVASC 0 but now that she has rhe umatic mitral stenosis, this calculation is irrelevant and she needs anticoagulation with coumadin Presyncope/syncope: due to cerebellar CVA -additional diltiazem 120mg x 1 now, then increase diltiazem to 360mg daily -when safe, transition ASA to coumadin with goal INR 2-3 (in 7-10 days per neuro) -neuro f/u Consultation Date/Type/Reason Admit Date/Time Jan 03, 2019 at 02:50 Initial Consult Date 01/03/19 Type of Consult Cardiology Date/Time of Note DATE: 01/06/19 TIME: 15:39 24 HR Interval Summary Free Text/Dictation Remains in atrial fibrillation, now with rapid ventricular rates today. Detailed Summary Additional Comments 14 point review of systems without changes. Exam/Review of Systems Vital Signs Vitals Vital Signs Date Temp Pulse Resp B/P (MAP) Pulse Ox O2 O2 Flow FiO2 Time Delivery Rate 01/06/19 98.0 72 22 152/89 Room Air 12:20 (110) 01/06/19 96 07:34 Intake and Output 01/05/19 01/05/19 01/06/19 1515:00 23:00 07:00 IntakeIntake Total 980 ml 200 ml BalanceBalance 980 ml 200 ml Exam Exam Constitutional: alert, oriented Psych: no complaints, nl mood/affect Neck: supple; No jvd Respiratory: clear to auscultation; No crackles/rales Cardiovascular: systolic murmur (2/6 RASHMI); No regular rate and rhythm (IRIR), No edema Gastrointestinal: soft, non-tender; No distended Neurological: nl mental status, nl speech Labs Result Diagram: 01/06/19 0510 01/06/19 0510 Results 24hrs Laboratory Tests Test 01/06/19 05:10 White Blood Count 8.7 Red Blood Count 5.30 Hemoglobin 13.8 Hematocrit 43.6 Mean Corpuscular Volume 82.3 Mean Corpuscular Hemoglobin 26.0 L Mean Corpuscular Hemoglobin Concent 31.7 L Red Cell Distribution Width 13.4 Platelet Count 217 Mean Platelet Volume 12.8 H Immature Granulocytes % 0.300 Neutrophils % 68.2 Lymphocytes % 18.3 Monocytes % 10.0 Eosinophils % 2.4 Basophils % 0.8 Nucleated Red Blood Cells % 0.0 Immature Granulocytes # 0.030 Neutrophils # 5.9 Lymphocytes # 1.6 Monocytes # 0.9 Eosinophils # 0.2 Basophils # 0.1 Nucleated Red Blood Cells # 0.0 Sodium Level 140 Potassium Level 4.2 Chloride Level 104 Carbon Dioxide Level 28 Anion Gap 8 Blood Urea Nitrogen 13 Creatinine 0.76 Est Glomerular Filtrat Rate mL/min > 60 Glucose Level 92 Calcium Level 9.0 Iron Level 51 Total Iron Binding Capacity 426 H Percent Iron Saturation 12 L Medications Medications Current Medications IV Flush (NS 3 ml) 3 ml PER PROTOCOL IV ; Start 01/03/19 at 07:00 Ondansetron HCl (Zofran Inj) 4 mg Q6H PRN IV NAUSEA/VOMITING; Start 01/03/19 at 07:00 Acetaminophen (Tylenol Tab) 650 mg Q6H PRN PO .PAIN 1-3 OR TEMP; Start 01/03/19 at 07:00 Morphine Sulfate (morphine) 2 mg Q4H PRN IV .SEVERE PAIN 7-10; Start 01/03/19 at 07:00 Docusate Sodium (Colace) 100 mg Q12H PRN PO .CONSTIPATION; Start 01/03/19 at 07:00 Magnesium Hydroxide (Milk Of Mag) 30 ml DAILY PRN PO .CONSTIPATION; Start 01/03/19 at 07:00 Heparin Sodium (Porcine) (Heparin (5000 Units/1ml)) 5,000 unit Q12 SC Last administered on 01/06/19at 12:22; Admin Dose 5,000 UNIT; Start 01/03/19 at 09:00 Albuterol/ Ipratropium (Duoneb) 3 ml Q4H RESP THERAPY PRN HHN SHORTNESS OF BREATH; Start 01/03/19 at 07:00 Nitroglycerin (Nitroglycerin (Sl Tab) 0.4 Mg) 1 tab Q5M PRN SL ANGINA Last administered on 01/06/19 14:37; Admin Dose 1 TAB; Start 01/03/19 at 07:00 Diltiazem HCl (Cardizem Cd) 240 mg DAILY PO Last administered on 01/06/19 12:12; Admin Dose 240 MG; Start 01/03/19 at 09:30 Aspirin (Aspirin) 81 mg DAILY PO Last administered on 01/06/19 09:22; Admin Dose 81 MG; Start 01/03/19 at 09:30 Atorvastatin Calcium (Lipitor) 80 mg HS PO Last administered on 01/05/19 20:55; Admin Dose 80 MG; Start 01/03/19 at 21:00 CARMENCITA VARGAS MD Jan 06, 2019 15:42
[2019-01-06] MEDS ORDERED: DILTIAZEM (CD) 120 MG CAP PO ONE (16:00)
[2019-01-06] MEDS: ATORVASTATIN 80 MG TAB PO SCH (20:19)
[2019-01-07] VITALS (9 sets, daily range): BP systolic 90–113; BP diastolic 54–71; PULSE 58–102; RESP 16–20
[2019-01-07] MEDS: ASPIRIN 81 MG TAB PO SCH (10:12)
[2019-01-07] MEDS: DILTIAZEM (CD) 240 MG CAP PO SCH (10:13)
[2019-01-07] MEDS: HEPARIN 5,000 UNIT/1 ML VIAL SC SCH ×2 (10:18→20:18)
--- NOTE | 2019-01-07 10:40 | CONS ---
Assessment/Plan Assessment/Plan Hospital Course (Demo Recall) Acute left cerebellar CVA: With now apparent rheumatic mitral stenosis and atrial fibrillation, this is the cause. There is also a left-right shunt from likely PFO but I dont think this is the cause. 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 This was not well seen on echo 11/16 (I reviewed the images again) as she was significantly tachycardic so both visually and by gradients it was not seen). She can be evaluated for balloon valvuloplasty as outpt Persistent atrial fibrillation: Previously CHADSVASC 0 but now that she has rhe umatic mitral stenosis, this calculation is irrelevant and she needs anticoagulation with coumadin Presyncope/syncope: due to cerebellar CVA -when safe, transition ASA to coumadin with goal INR 2-3 (per neuro likely in 1 week) -diltiazem 360mg -otherwise ok for d/c with above Consultation Date/Type/Reason Admit Date/Time Jan 03, 2019 at 02:50 Initial Consult Date 01/03/19 Type of Consult Cardiology Date/Time of Note DATE: 01/07/19 TIME: 10:39 24 HR Interval Summary Free Text/Dictation No events. Rates controlled now. No complaints. Asking about going home Exam/Review of Systems Vital Signs Vitals Vital Signs Date Temp Pulse Resp B/P (MAP) Pulse Ox O2 O2 Flow FiO2 Time Delivery Rate 01/07/19 58 08:01 01/07/19 97.8 16 100/68 99 07:11 (79) 01/07/19 Nasal 2.0 04:00 Cannula Intake and Output 01/06/19 01/06/19 01/07/19 1515:00 23:00 07:00 IntakeIntake Total 800 ml 1000 ml BalanceBalance 800 ml 1000 ml Exam Constitutional: alert, oriented Psych: no complaints, nl mood/affect Neck: supple; No jvd Respiratory: clear to auscultation; No crackles/rales Cardiovascular: systolic murmur (2/6 RASHMI); No regular rate and rhythm, No edema Gastrointestinal: soft, non-tender; No distended Neurological: nl mental status, nl speech Labs Result Diagram: 01/07/19 0530 01/07/19 0530 Results 24hrs Laboratory Tests Test 01/07/19 05:30 White Blood Count 6.8 # Red Blood Count 5.18 Hemoglobin 13.6 Hematocrit 42.1 Mean Corpuscular Volume 81.3 L Mean Corpuscular Hemoglobin 26.3 L Mean Corpuscular Hemoglobin Concent 32.3 Red Cell Distribution Width 13.2 Platelet Count 197 Mean Platelet Volume 12.1 H Immature Granulocytes % 0.100 Neutrophils % 66.6 Lymphocytes % 20.5 Monocytes % 9.1 Eosinophils % 2.8 Basophils % 0.9 Nucleated Red Blood Cells % 0.0 Immature Granulocytes # 0.010 Neutrophils # 4.5 Lymphocytes # 1.4 Monocytes # 0.6 Eosinophils # 0.2 Basophils # 0.1 Nucleated Red Blood Cells # 0.0 Sodium Level 139 Potassium Level 4.3 Chloride Level 106 Carbon Dioxide Level 26 Anion Gap 7 Blood Urea Nitrogen 12 Creatinine 0.64 Est Glomerular Filtrat Rate mL/min > 60 Glucose Level 93 Calcium Level 8.9 Medications Medications Current Medications IV Flush (NS 3 ml) 3 ml PER PROTOCOL IV ; Start 01/03/19 at 07:00 Ondansetron HCl (Zofran Inj) 4 mg Q6H PRN IV NAUSEA/VOMITING; Start 01/03/19 at 07:00 Acetaminophen (Tylenol Tab) 650 mg Q6H PRN PO .PAIN 1-3 OR TEMP; Start 01/03/19 at 07:00 Morphine Sulfate (morphine) 2 mg Q4H PRN IV .SEVERE PAIN 7-10; Start 01/03/19 at 07:00 Docusate Sodium (Colace) 100 mg Q12H PRN PO .CONSTIPATION Last administered on 01/06/19at 20:19; Admin Dose 100 MG; Start 01/03/19 at 07:00 Magnesium Hydroxide (Milk Of Mag) 30 ml DAILY PRN PO .CONSTIPATION; Start 01/03/19 at 07:00 Heparin Sodium (Porcine) (Heparin (5000 Units/1ml)) 5,000 unit Q12 SC Last administered on 01/07/19at 10:18; Admin Dose 5,000 UNIT; Start 01/03/19 at 09:00 Albuterol/ Ipratropium (Duoneb) 3 ml Q4H RESP THERAPY PRN HHN SHORTNESS OF BREATH; Start 01/03/19 at 07:00 Nitroglycerin (Nitroglycerin (Sl Tab) 0.4 Mg) 1 tab Q5M PRN SL ANGINA Last administered on 01/06/19 14:37; Admin Dose 1 TAB; Start 01/03/19 at 07:00 Aspirin (Aspirin) 81 mg DAILY PO Last administered on 01/07/19 10:12; Admin Dose 81 MG; Start 01/03/19 at 09:30 Atorvastatin Calcium (Lipitor) 80 mg HS PO Last administered on 01/06/19 20:19; Admin Dose 80 MG; Start 01/03/19 at 21:00 Diltiazem HCl (Cardizem Cd) 360 mg DAILY PO Last administered on 01/07/19 10:13; Admin Dose 360 MG; Start 01/07/19 at 09:00 NANETTE ALLEN Jan 07, 2019 10:40
--- NOTE | 2019-01-07 11:58 | CONS ---
Assessment/Plan Assessment/Plan Assessment/Plan (Recall) 63 yo F with hx of afib and other comorbidities who presents for evaluation of vertigo with ?transient LOC. MRI brain confirmed an acute L cerebellar infarct... for which neurology is consulted. EKG is notable for afib. CTA H/N are without evidence of intracranial athero or stenoses, though notable for the acute infarct. Echo is most notable for rheumatic mitral valve stenosis. ESR 7, RPR neg P: Cont ASA/Lipitor for secondary stroke prevention in the short-term; agree w/ transition from asa to warfarin to begin 7-10 days following acute infarct PT/OT/ST as necessary Cont BP and other medical management per primary Will follow clinically Consultation Date/Type/Reason Admit Date/Time Jan 03, 2019 at 02:50 Type of Consult Neurology Reason for Consultation stroke Requesting Provider: LESLYE PARKER NP Date/Time of Note DATE: 01/07/19 TIME: 11:56 24 HR Interval Summary Free Text/Dictation Continues acute care Exam/Review of Systems Exam Vitals Vital Signs Date Temp Pulse Resp B/P (MAP) Pulse Ox O2 O2 Flow FiO2 Time Delivery Rate 01/07/19 2.0 10:50 01/07/19 58 08:01 01/07/19 97.8 16 100/68 99 07:11 (79) 01/07/19 Nasal 04:00 Cannula Intake and Output 01/06/19 01/06/19 01/07/19 1515:00 23:00 07:00 IntakeIntake Total 800 ml 1000 ml BalanceBalance 800 ml 1000 ml Results Result Diagram: 01/07/19 0530 01/07/19 0530 Results 24hrs Laboratory Tests Test 01/07/19 05:30 White Blood Count 6.8 # Red Blood Count 5.18 Hemoglobin 13.6 Hematocrit 42.1 Mean Corpuscular Volume 81.3 L Mean Corpuscular Hemoglobin 26.3 L Mean Corpuscular Hemoglobin Concent 32.3 Red Cell Distribution Width 13.2 Platelet Count 197 Mean Platelet Volume 12.1 H Immature Granulocytes % 0.100 Neutrophils % 66.6 Lymphocytes % 20.5 Monocytes % 9.1 Eosinophils % 2.8 Basophils % 0.9 Nucleated Red Blood Cells % 0.0 Immature Granulocytes # 0.010 Neutrophils # 4.5 Lymphocytes # 1.4 Monocytes # 0.6 Eosinophils # 0.2 Basophils # 0.1 Nucleated Red Blood Cells # 0.0 Sodium Level 139 Potassium Level 4.3 Chloride Level 106 Carbon Dioxide Level 26 Anion Gap 7 Blood Urea Nitrogen 12 Creatinine 0.64 Est Glomerular Filtrat Rate mL/min > 60 Glucose Level 93 Calcium Level 8.9 Medications Medication Current Medications IV Flush (NS 3 ml) 3 ml PER PROTOCOL IV ; Start 01/03/19 at 07:00 Ondansetron HCl (Zofran Inj) 4 mg Q6H PRN IV NAUSEA/VOMITING; Start 01/03/19 at 07:00 Acetaminophen (Tylenol Tab) 650 mg Q6H PRN PO .PAIN 1-3 OR TEMP; Start 01/03/19 at 07:00 Morphine Sulfate (morphine) 2 mg Q4H PRN IV .SEVERE PAIN 7-10; Start 01/03/19 at 07:00 Docusate Sodium (Colace) 100 mg Q12H PRN PO .CONSTIPATION Last administered on 01/06/19 20:19; Admin Dose 100 MG; Start 01/03/19 at 07:00 Magnesium Hydroxide (Milk Of Mag) 30 ml DAILY PRN PO .CONSTIPATION; Start 01/03/19 at 07:00 Heparin Sodium (Porcine) (Heparin (5000 Units/1ml)) 5,000 unit Q12 SC Last administered on 01/07/19 10:18; Admin Dose 5,000 UNIT; Start 01/03/19 at 09:00 Albuterol/ Ipratropium (Duoneb) 3 ml Q4H RESP THERAPY PRN HHN SHORTNESS OF BREATH; Start 01/03/19 at 07:00 Nitroglycerin (Nitroglycerin (Sl Tab) 0.4 Mg) 1 tab Q5M PRN SL ANGINA Last administered on 01/06/19 14:37; Admin Dose 1 TAB; Start 01/03/19 at 07:00 Aspirin (Aspirin) 81 mg DAILY PO Last administered on 01/07/19 10:12; Admin Dose 81 MG; Start 01/03/19 at 09:30 Atorvastatin Calcium (Lipitor) 80 mg HS PO Last administered on 01/06/19 20:19; Admin Dose 80 MG; Start 01/03/19 at 21:00 Diltiazem HCl (Cardizem Cd) 360 mg DAILY PO Last administered on 6/10/19at 10:13; Admin Dose 360 MG; Start 01/07/19 at 09:00 SHERIN DOOLEY Jan 07, 2019 11:58
--- NOTE | 2019-01-07 14:37 | PN ---
Date/Time of Note Date/Time of Note DATE: 01/07/19 TIME: 14:31 Assessment/Plan VTE Prophylaxis Risk score (from Ns)>0 risk: 3 SCD applied (from Ns): No SCD contraindicated: low risk/ambulating Pharmacological prophylaxis: other Lines/Catheters IV [facility]from [facility] Urinary Cath still in place: No Assessment/Plan Assessment/Plan 1. Acute L cerebellar CVA - most likely etiology of feeling slightly off balance - Neurology consultation appreciated and okay to start anticoagulation 7-10 days for initial CVA incident. Pt presented on 01/03 and will start bridging to Coumadin 01/11 - PT on board 2. Atrial fibrillation - will start anticoagulation - currently rate controlled and continue current medications - Cardiology on board and appreciate recommendations 3. 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 interatrial cardiac shunt 5. Disposition - will need to start Coumadin bridging while inpatient when safe based on Neurology recommendations Result Diagram: 01/07/19 0530 01/07/19 0530 Results 24hrs Laboratory Tests Test 01/07/19 05:30 White Blood Count 6.8 # Red Blood Count 5.18 Hemoglobin 13.6 Hematocrit 42.1 Mean Corpuscular Volume 81.3 L Mean Corpuscular Hemoglobin 26.3 L Mean Corpuscular Hemoglobin Concent 32.3 Red Cell Distribution Width 13.2 Platelet Count 197 Mean Platelet Volume 12.1 H Immature Granulocytes % 0.100 Neutrophils % 66.6 Lymphocytes % 20.5 Monocytes % 9.1 Eosinophils % 2.8 Basophils % 0.9 Nucleated Red Blood Cells % 0.0 Immature Granulocytes # 0.010 Neutrophils # 4.5 Lymphocytes # 1.4 Monocytes # 0.6 Eosinophils # 0.2 Basophils # 0.1 Nucleated Red Blood Cells # 0.0 Sodium Level 139 Potassium Level 4.3 Chloride Level 106 Carbon Dioxide Level 26 Anion Gap 7 Blood Urea Nitrogen 12 Creatinine 0.64 Est Glomerular Filtrat Rate mL/min > 60 Glucose Level 93 Calcium Level 8.9 Subjective 24 Hr Interval Summary Free Text/Dictation Patient states shes feeling occasional palpitations and dizziness. Denies any acute overnight events. Exam/Review of Systems Exam Vitals Vital Signs Date Temp Pulse Resp B/P (MAP) Pulse Ox O2 O2 Flow FiO2 Time Delivery Rate 01/07/19 100 12:00 01/07/19 2.0 10:50 01/07/19 97.8 16 100/68 99 07:11 (79) 01/07/19 Nasal 04:00 Cannula Intake and Output 01/06/19 01/06/19 01/07/19 1515:00 23:00 07:00 IntakeIntake Total 800 ml 1000 ml BalanceBalance 800 ml 1000 ml Exam General: no acute distress. answering questions appropriately Neck: supple Chest: nontender CVS: S1, S2, irregular rhythm, regular rate. no murmurs Lungs: clear to auscultation bilaterally. no wheezing or rhonchi Abd: soft, nontender, nondistended. no rebound or guarding. bowel sounds present diffusely Ext: moving all extremities. no cyanosis, clubbing, or edema Skin: warm, dry. Results Results 24hrs Laboratory Tests Test 01/07/19 05:30 White Blood Count 6.8 # Red Blood Count 5.18 Hemoglobin 13.6 Hematocrit 42.1 Mean Corpuscular Volume 81.3 L Mean Corpuscular Hemoglobin 26.3 L Mean Corpuscular Hemoglobin Concent 32.3 Red Cell Distribution Width 13.2 Platelet Count 197 Mean Platelet Volume 12.1 H Immature Granulocytes % 0.100 Neutrophils % 66.6 Lymphocytes % 20.5 Monocytes % 9.1 Eosinophils % 2.8 Basophils % 0.9 Nucleated Red Blood Cells % 0.0 Immature Granulocytes # 0.010 Neutrophils # 4.5 Lymphocytes # 1.4 Monocytes # 0.6 Eosinophils # 0.2 Basophils # 0.1 Nucleated Red Blood Cells # 0.0 Sodium Level 139 Potassium Level 4.3 Chloride Level 106 Carbon Dioxide Level 26 Anion Gap 7 Blood Urea Nitrogen 12 Creatinine 0.64 Est Glomerular Filtrat Rate mL/min > 60 Glucose Level 93 Calcium Level 8.9 Medications Medication Current Medications IV Flush (NS 3 ml) 3 ml PER PROTOCOL IV ; Start 01/03/19 at 07:00 Ondansetron HCl (Zofran Inj) 4 mg Q6H PRN IV NAUSEA/VOMITING; Start 01/03/19 at 07:00 Acetaminophen (Tylenol Tab) 650 mg Q6H PRN PO .PAIN 1-3 OR TEMP; Start 01/03/19 at 07:00 Morphine Sulfate (morphine) 2 mg Q4H PRN IV .SEVERE PAIN 7-10; Start 01/03/19 at 07:00 Docusate Sodium (Colace) 100 mg Q12H PRN PO .CONSTIPATION Last administered on 01/06/19 20:19; Admin Dose 100 MG; Start 01/03/19 at 07:00 Magnesium Hydroxide (Milk Of Mag) 30 ml DAILY PRN PO .CONSTIPATION; Start 01/03/19 at 07:00 Heparin Sodium (Porcine) (Heparin (5000 Units/1ml)) 5,000 unit Q12 SC Last administered on 01/07/19 10:18; Admin Dose 5,000 UNIT; Start 01/03/19 at 09:00 Albuterol/ Ipratropium (Duoneb) 3 ml Q4H RESP THERAPY PRN HHN SHORTNESS OF BREATH; Start 01/03/19 at 07:00 Nitroglycerin (Nitroglycerin (Sl Tab) 0.4 Mg) 1 tab Q5M PRN SL ANGINA Last administered on 01/06/19 14:37; Admin Dose 1 TAB; Start 01/03/19 at 07:00 Aspirin (Aspirin) 81 mg DAILY PO Last administered on 01/07/19 10:12; Admin Dose 81 MG; Start 01/03/19 at 09:30 Atorvastatin Calcium (Lipitor) 80 mg HS PO Last administered on 01/06/19 20:19; Admin Dose 80 MG; Start 01/03/19 at 21:00 Diltiazem HCl (Cardizem Cd) 360 mg DAILY PO Last administered on 01/07/19 10:13; Admin Dose 360 MG; Start 01/07/19 at 09:00 NEWTON YANEZ MD Jan 07, 2019 14:37
[2019-01-07] MEDS ORDERED: traZODone 50 MG TAB PO PRN (15:00)
[2019-01-07] MEDS: MAGNESIUM HYDROXIDE 30ML CUP PO PRN (20:14)
[2019-01-07] MEDS: ATORVASTATIN 80 MG TAB PO SCH (20:14)
[2019-01-08] VITALS (13 sets, daily range): BP systolic 93–112; BP diastolic 50–81; PULSE 8–91; RESP 18–20
[2019-01-08] MEDS: MAGNESIUM HYDROXIDE 30ML CUP PO PRN (05:28)
[2019-01-08] MEDS: DILTIAZEM (CD) 240 MG CAP PO SCH (08:05)
[2019-01-08] MEDS: ASPIRIN 81 MG TAB PO SCH (08:05)
[2019-01-08] MEDS: HEPARIN 5,000 UNIT/1 ML VIAL SC SCH ×2 (08:29→19:54)
--- NOTE | 2019-01-08 12:51 | CONS ---
Assessment/Plan Assessment/Plan Assessment/Plan (Recall) 63 yo F with hx of afib and other comorbidities who presents for evaluation of vertigo with ?transient LOC. MRI brain confirmed an acute L cerebellar infarct... for which neurology is consulted. EKG is notable for afib. CTA H/N are without evidence of intracranial athero or stenoses, though notable for the acute infarct. Echo is most notable for rheumatic mitral valve stenosis. ESR 7, RPR neg P: Cont ASA/Lipitor for secondary stroke prevention in the short-term; agree w/ transition from asa to warfarin after 01/09 PT/OT/ST as necessary Cont BP and other medical management per primary Will sign off for now; please call w/ additional questions Consultation Date/Type/Reason Admit Date/Time Jan 03, 2019 at 02:50 Type of Consult Neurology Reason for Consultation stroke Requesting Provider: LESLYE PARKER NP Date/Time of Note DATE: 01/08/19 TIME: 12:49 24 HR Interval Summary Free Text/Dictation Continues acute care Exam/Review of Systems Exam Vitals Vital Signs Date Temp Pulse Resp B/P (MAP) Pulse Ox O2 O2 Flow FiO2 Time Delivery Rate 01/08/19 83 12:11 01/08/19 98.0 20 96/63 (74) 98 Room Air 11:10 01/08/19 2.0 03:11 Intake and Output 01/07/19 01/07/19 01/08/19 1515:00 23:00 07:00 IntakeIntake Total 600 ml 1000 ml BalanceBalance 600 ml 1000 ml Exam Comprehensive: stable from prior Results Result Diagram: 01/08/19 0539 01/08/19 0539 Results 24hrs Laboratory Tests Test 01/08/19 05:39 White Blood Count 7.8 Red Blood Count 4.86 Hemoglobin 12.7 Hematocrit 40.4 Mean Corpuscular Volume 83.1 Mean Corpuscular Hemoglobin 26.1 L Mean Corpuscular Hemoglobin Concent 31.4 L Red Cell Distribution Width 13.2 Platelet Count 202 Mean Platelet Volume 12.8 H Immature Granulocytes % 0.400 Neutrophils % 69.2 Lymphocytes % 18.5 Monocytes % 8.5 Eosinophils % 2.8 Basophils % 0.6 Nucleated Red Blood Cells % 0.0 Immature Granulocytes # 0.030 Neutrophils # 5.4 Lymphocytes # 1.4 Monocytes # 0.7 Eosinophils # 0.2 Basophils # 0.1 Nucleated Red Blood Cells # 0.0 Sodium Level 140 Potassium Level 4.3 Chloride Level 105 Carbon Dioxide Level 27 Anion Gap 8 Blood Urea Nitrogen 14 Creatinine 0.67 Est Glomerular Filtrat Rate mL/min > 60 Glucose Level 100 Calcium Level 8.7 Medications Medication Current Medications IV Flush (NS 3 ml) 3 ml PER PROTOCOL IV ; Start 01/03/19 at 07:00 Ondansetron HCl (Zofran Inj) 4 mg Q6H PRN IV NAUSEA/VOMITING; Start 01/03/19 at 07:00 Acetaminophen (Tylenol Tab) 650 mg Q6H PRN PO .PAIN 1-3 OR TEMP; Start 01/03/19 at 07:00 Morphine Sulfate (morphine) 2 mg Q4H PRN IV .SEVERE PAIN 7-10; Start 01/03/19 at 07:00 Docusate Sodium (Colace) 100 mg Q12H PRN PO .CONSTIPATION Last administered on 01/06/19 20:19; Admin Dose 100 MG; Start 01/03/19 at 07:00 Magnesium Hydroxide (Milk Of Mag) 30 ml DAILY PRN PO .CONSTIPATION Last administered on 01/08/19 05:28; Admin Dose 30 ML; Start 01/03/19 at 07:00 Heparin Sodium (Porcine) (Heparin (5000 Units/1ml)) 5,000 unit Q12 SC Last administered on 01/08/19 08:29; Admin Dose 5,000 UNIT; Start 01/03/19 at 09:00 Albuterol/ Ipratropium (Duoneb) 3 ml Q4H RESP THERAPY PRN HHN SHORTNESS OF BREATH; Start 01/03/19 at 07:00 Nitroglycerin (Nitroglycerin (Sl Tab) 0.4 Mg) 1 tab Q5M PRN SL ANGINA Last administered on 01/06/19at 14:37; Admin Dose 1 TAB; Start 01/03/19 at 07:00 Aspirin (Aspirin) 81 mg DAILY PO Last administered on 01/08/19 08:05; Admin Dose 81 MG; Start 01/03/19 at 09:30 Atorvastatin Calcium (Lipitor) 80 mg HS PO Last administered on 01/07/19at 20:14; Admin Dose 80 MG; Start 01/03/19 at 21:00 Diltiazem HCl (Cardizem Cd) 360 mg DAILY PO Last administered on 01/08/19at 08 :05; Admin Dose 360 MG; Start 01/07/19 at 09:00 Trazodone HCl (Desyrel) 50 mg HS PRN PO insomnia; Start 01/07/19 at 15:00 SHERIN DOOLYE Jan 08, 2019 12:51
--- NOTE | 2019-01-08 13:51 | CONS ---
Assessment/Plan Assessment/Plan Hospital Course (Demo Recall) Acute left cerebellar CVA: With now apparent rheumatic mitral stenosis and atrial fibrillation, this is the cause. There is also a left-right shunt from likely PFO but I dont think this is the cause. 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 This was not well seen on echo 11/16 (I reviewed the images again) as she was significantly tachycardic so both visually and by gradients it was not seen). She can be evaluated for balloon valvuloplasty as outpt Persistent atrial fibrillation: Previously CHADSVASC 0 but now that she has rhe umatic mitral stenosis, this calculation is irrelevant and she needs anticoagulation with coumadin Presyncope/syncope: due to cerebellar CVA -starting tomorrow, start coumadin 5mg daily -d/c ASA -diltiazem 360mg Consultation Date/Type/Reason Admit Date/Time Jan 03, 2019 at 02:50 Initial Consult Date 01/03/19 Type of Consult Cardiology Requesting Provider: LESLYE PARKER NP Date/Time of Note DATE: 01/08/19 TIME: 13:49 24 HR Interval Summary Free Text/Dictation No events. Ok to start coumadin tomorrow per neuro. Exam/Review of Systems Vital Signs Vitals Vital Signs Date Temp Pulse Resp B/P (MAP) Pulse Ox O2 O2 Flow FiO2 Time Delivery Rate 01/08/19 83 12:11 01/08/19 98.0 20 96/63 (74) 98 Room Air 11:10 01/08/19 2.0 03:11 Intake and Output 01/07/19 01/07/19 01/08/19 1515:00 23:00 07:00 IntakeIntake Total 600 ml 1000 ml BalanceBalance 600 ml 1000 ml Exam Constitutional: alert, oriented Head: normocephalic, atraumatic Neck: No jvd Respiratory: clear to auscultation; No crackles/rales Cardiovascular: No regular rate and rhythm (IRIR), No edema Gastrointestinal: soft, non-tender; No distended Neurological: nl mental status, nl speech Labs Result Diagram: 01/08/19 0539 01/08/19 0539 Results 24hrs Laboratory Tests Test 01/08/19 05:39 White Blood Count 7.8 Red Blood Count 4.86 Hemoglobin 12.7 Hematocrit 40.4 Mean Corpuscular Volume 83.1 Mean Corpuscular Hemoglobin 26.1 L Mean Corpuscular Hemoglobin Concent 31.4 L Red Cell Distribution Width 13.2 Platelet Count 202 Mean Platelet Volume 12.8 H Immature Granulocytes % 0.400 Neutrophils % 69.2 Lymphocytes % 18.5 Monocytes % 8.5 Eosinophils % 2.8 Basophils % 0.6 Nucleated Red Blood Cells % 0.0 Immature Granulocytes # 0.030 Neutrophils # 5.4 Lymphocytes # 1.4 Monocytes # 0.7 Eosinophils # 0.2 Basophils # 0.1 Nucleated Red Blood Cells # 0.0 Sodium Level 140 Potassium Level 4.3 Chloride Level 105 Carbon Dioxide Level 27 Anion Gap 8 Blood Urea Nitrogen 14 Creatinine 0.67 Est Glomerular Filtrat Rate mL/min > 60 Glucose Level 100 Calcium Level 8.7 Medications Medications Current Medications IV Flush (NS 3 ml) 3 ml PER PROTOCOL IV ; Start 01/03/19 at 07:00 Ondansetron HCl (Zofran Inj) 4 mg Q6H PRN IV NAUSEA/VOMITING; Start 01/03/19 at 07:00 Acetaminophen (Tylenol Tab) 650 mg Q6H PRN PO .PAIN 1-3 OR TEMP; Start 01/03/19 at 07:00 Morphine Sulfate (morphine) 2 mg Q4H PRN IV .SEVERE PAIN 7-10; Start 01/03/19 at 07:00 Docusate Sodium (Colace) 100 mg Q12H PRN PO .CONSTIPATION Last administered on 01/06/19at 20:19; Admin Dose 100 MG; Start 01/03/19 at 07:00 Magnesium Hydroxide (Milk Of Mag) 30 ml DAILY PRN PO .CONSTIPATION Last administered on 01/08/19at 05:28; Admin Dose 30 ML; Start 01/03/19 at 07:00 Heparin Sodium (Porcine) (Heparin (5000 Units/1ml)) 5,000 unit Q12 SC Last administered on 01/08/19at 08:29; Admin Dose 5,000 UNIT; Start 01/03/19 at 09:00 Albuterol/ Ipratropium (Duoneb) 3 ml Q4H RESP THERAPY PRN HHN SHORTNESS OF BREATH; Start 01/03/19 at 07:00 Nitroglycerin (Nitroglycerin (Sl Tab) 0.4 Mg) 1 tab Q5M PRN SL ANGINA Last administered on 01/06/19at 14:37; Admin Dose 1 TAB; Start 01/03/19 at 07:00 Aspirin (Aspirin) 81 mg DAILY PO Last administered on 01/08/19at 08:05; Admin Dose 81 MG; Start 01/03/19 at 09:30 Atorvastatin Calcium (Lipitor) 80 mg HS PO Last administered on 01/07/19at 20:14; Admin Dose 80 MG; Start 01/03/19 at 21:00 Diltiazem HCl (Cardizem Cd) 360 mg DAILY PO Last administered on 01/08/19 08:05; Admin Dose 360 MG; Start 01/07/19 at 09:00 Trazodone HCl (Desyrel) 50 mg HS PRN PO insomnia; Start 01/07/19 at 15:00 NANETTE ALLEN Jan 08, 2019 13:51
--- NOTE | 2019-01-08 14:50 | PN ---
Date/Time of Note Date/Time of Note DATE: 01/08/19 TIME: 14:47 Assessment/Plan VTE Prophylaxis Risk score (from Ns)>0 risk: 3 SCD applied (from Ns): No SCD contraindicated: low risk/ambulating Pharmacological prophylaxis: warfarin tx Lines/Catheters IV [facility]ter Type (from [email or web address] Saline Lock Urinary Cath still in place: No Assessment/Plan Assessment/Plan 1. Acute L cerebellar CVA - Neurology consultation appreciated and cleared to start anticoagulation. Coumadin ordered for tomorrow - PT on board 2. Atrial fibrillation - Coumadin ordered for tomorrow. Discussed with CM need to find patient Coumadin clinic for follow up - currently rate controlled and continue current medications - Cardiology on board and appreciate recommendations 3. 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 interatrial cardiac shunt 5. Disposition - Will start on Coumadin tomorrow and monitor for tolerance. CM consulted for assistance with arranging follow up for Coumadin monitoring. Result Diagram: 01/08/19 0539 01/08/19 0539 Results 24hrs Laboratory Tests Test 01/08/19 05:39 White Blood Count 7.8 Red Blood Count 4.86 Hemoglobin 12.7 Hematocrit 40.4 Mean Corpuscular Volume 83.1 Mean Corpuscular Hemoglobin 26.1 L Mean Corpuscular Hemoglobin Concent 31.4 L Red Cell Distribution Width 13.2 Platelet Count 202 Mean Platelet Volume 12.8 H Immature Granulocytes % 0.400 Neutrophils % 69.2 Lymphocytes % 18.5 Monocytes % 8.5 Eosinophils % 2.8 Basophils % 0.6 Nucleated Red Blood Cells % 0.0 Immature Granulocytes # 0.030 Neutrophils # 5.4 Lymphocytes # 1.4 Monocytes # 0.7 Eosinophils # 0.2 Basophils # 0.1 Nucleated Red Blood Cells # 0.0 Sodium Level 140 Potassium Level 4.3 Chloride Level 105 Carbon Dioxide Level 27 Anion Gap 8 Blood Urea Nitrogen 14 Creatinine 0.67 Est Glomerular Filtrat Rate mL/min > 60 Glucose Level 100 Calcium Level 8.7 Subjective 24 Hr Interval Summary Free Text/Dictation Patient denies any acute issues. Daughter at bedside and plan of care discusse d. No acute overnight events. Exam/Review of Systems Exam Vitals Vital Signs Date Temp Pulse Resp B/P (MAP) Pulse Ox O2 O2 Flow FiO2 Time Delivery Rate 01/08/19 83 12:11 01/08/19 98.0 20 96/63 (74) 98 Room Air 11:10 01/08/19 2.0 03:11 Intake and Output 01/07/19 01/07/19 01/08/19 1515:00 23:00 07:00 IntakeIntake Total 600 ml 1000 ml BalanceBalance 600 ml 1000 ml Exam General: no acute distress. answering questions appropriately Neck: supple CVS: S1, S2, irregular rhythm, regular rate. no murmurs Lungs: clear to auscultation bilaterally. no wheezing or rhonchi Abd: soft, nontender, nondistended. no rebound or guarding. bowel sounds present diffusely Ext: moving all extremities. no cyanosis, clubbing, or edema Skin: warm, dry. Results Results 24hrs Laboratory Tests Test 01/08/19 05:39 White Blood Count 7.8 Red Blood Count 4.86 Hemoglobin 12.7 Hematocrit 40.4 Mean Corpuscular Volume 83.1 Mean Corpuscular Hemoglobin 26.1 L Mean Corpuscular Hemoglobin Concent 31.4 L Red Cell Distribution Width 13.2 Platelet Count 202 Mean Platelet Volume 12.8 H Immature Granulocytes % 0.400 Neutrophils % 69.2 Lymphocytes % 18.5 Monocytes % 8.5 Eosinophils % 2.8 Basophils % 0.6 Nucleated Red Blood Cells % 0.0 Immature Granulocytes # 0.030 Neutrophils # 5.4 Lymphocytes # 1.4 Monocytes # 0.7 Eosinophils # 0.2 Basophils # 0.1 Nucleated Red Blood Cells # 0.0 Sodium Level 140 Potassium Level 4.3 Chloride Level 105 Carbon Dioxide Level 27 Anion Gap 8 Blood Urea Nitrogen 14 Creatinine 0.67 Est Glomerular Filtrat Rate mL/min > 60 Glucose Level 100 Calcium Level 8.7 Medications Medication Current Medications IV Flush (NS 3 ml) 3 ml PER PROTOCOL IV ; Start 01/03/19 at 07:00 Ondansetron HCl (Zofran Inj) 4 mg Q6H PRN IV NAUSEA/VOMITING; Start 01/03/19 at 07:00 Acetaminophen (Tylenol Tab) 650 mg Q6H PRN PO .PAIN 1-3 OR TEMP; Start 01/03/19 at 07:00 Morphine Sulfate (morphine) 2 mg Q4H PRN IV .SEVERE PAIN 7-10; Start 01/03/19 at 07:00 Docusate Sodium (Colace) 100 mg Q12H PRN PO .CONSTIPATION Last administered on 01/06/19 20:19; Admin Dose 100 MG; Start 01/03/19 at 07:00 Magnesium Hydroxide (Milk Of Mag) 30 ml DAILY PRN PO .CONSTIPATION Last administered on 01/08/19 05:28; Admin Dose 30 ML; Start 01/03/19 at 07:00 Heparin Sodium (Porcine) (Heparin (5000 Units/1ml)) 5,000 unit Q12 SC Last administered on 01/08/19 08:29; Admin Dose 5,000 UNIT; Start 01/03/19 at 09:00 Albuterol/ Ipratropium (Duoneb) 3 ml Q4H RESP THERAPY PRN HHN SHORTNESS OF BREATH; Start 01/03/19 at 07:00 Nitroglycerin (Nitroglycerin (Sl Tab) 0.4 Mg) 1 tab Q5M PRN SL ANGINA Last administered on 01/06/19 14:37; Admin Dose 1 TAB; Start 01/03/19 at 07:00 Atorvastatin Calcium (Lipitor) 80 mg HS PO Last administered on 01/07/19 20:14; Admin Dose 80 MG; Start 01/03/19 at 21:00 Diltiazem HCl (Cardizem Cd) 360 mg DAILY PO Last administered on 01/08/19 08:05; Admin Dose 360 MG; Start 01/07/19 at 09:00 Trazodone HCl (Desyrel) 50 mg HS PRN PO insomnia; Start 01/07/19 at 15:00 Warfarin Sodium (Coumadin) 5 mg DAILY PO ; Start 01/09/19 at 09:00; Status NEWTON CALDERON MD Jan 08, 2019 14:50
[2019-01-08] MEDS: ATORVASTATIN 80 MG TAB PO SCH (19:49)
[2019-01-08] MEDS: WARFARIN 5 MG TAB PO SCH (22:29)
[2019-01-09] VITALS (10 sets, daily range): BP systolic 108–112; BP diastolic 61–84; PULSE 66–105; RESP 18–22
--- NOTE | 2019-01-09 07:43 | CONS ---
Assessment/Plan Assessment/Plan Hospital Course (Demo Recall) Acute left cerebellar CVA: With now apparent rheumatic mitral stenosis and atrial fibrillation, this is the cause. There is also a left-right shunt from likely PFO but I dont think this is the cause. 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 This was not well seen on echo 11/16 (I reviewed the images again) as she was significantly ta chycardic so both visually and by gradients it was not seen). She can be evaluated for balloon valvuloplasty as outpt Persistent atrial fibrillation: Previously CHADSVASC 0 but now that she has rheumatic mitral stenosis, this calculation is irrelevant and she needs anticoagulation with coumadin Presyncope/syncope: due to cerebellar CVA -coumadin 5mg daily -check daily INR. Goal 2-3 -diltiazem 360mg Consultation Date/Type/Reason Admit Date/Time Jan 03, 2019 at 02:50 Initial Consult Date 01/03/19 Type of Consult Cardiology Requesting Provider: LESLYE PARKER NP Date/Time of Note DATE: 01/09/19 TIME: 07:42 24 HR Interval Summary Free Text/Dictation No events. Started on coumadin Exam/Review of Systems Vital Signs Vitals Vital Signs Date Temp Pulse Resp B/P (MAP) Pulse Ox O2 O2 Flow FiO2 Time Delivery Rate 01/09/19 98.0 82 18 110/61 94 Room Air 05:28 (77) 01/08/19 2.0 03:11 Intake and Output 01/08/19 01/08/19 01/09/19 1515:00 23:00 07:00 IntakeIntake Total 1040 ml 950 ml BalanceBalance 1040 ml 950 ml Exam Constitutional: alert, oriented Psych: no complaints, nl mood/affect Head: normocephalic, atraumatic Neck: supple; No jvd Respiratory: crackles/rales (faint at bases), diminished breath sounds; No clear to auscultation Cardiovascular: systolic murmur (2/6 RASHMI); No regular rate and rhythm, No edema Neurological: nl mental status, nl speech Labs Result Diagram: 01/09/19 0509 01/09/19 0509 Results 24hrs Laboratory Tests Test 01/08/19 19:09 01/09/19 05:09 Prothrombin Time 12.1 Prothrombin Time Ratio 0.9 INR International Normalized Ratio 0.89 White Blood Count 8.0 Red Blood Count 4.89 Hemoglobin 12.6 Hematocrit 40.0 Mean Corpuscular Volume 81.8 L Mean Corpuscular Hemoglobin 25.8 L Mean Corpuscular Hemoglobin Concent 31.5 L Red Cell Distribution Width 13.4 Platelet Count 200 Mean Platelet Volume 12.8 H Immature Granulocytes % 0.300 Neutrophils % 68.8 Lymphocytes % 19.2 Monocytes % 8.9 Eosinophils % 2.3 Basophils % 0.5 Nucleated Red Blood Cells % 0.0 Immature Granulocytes # 0.020 Neutrophils # 5.5 Lymphocytes # 1.5 Monocytes # 0.7 Eosinophils # 0.2 Basophils # 0.0 Nucleated Red Blood Cells # 0.0 Sodium Level 139 Potassium Level 4.2 Chloride Level 106 Carbon Dioxide Level 26 Anion Gap 7 Blood Urea Nitrogen 10 Creatinine 0.66 Est Glomerular Filtrat Rate mL/min > 60 Glucose Level 94 Calcium Level 9.0 Medications Medications Current Medications IV Flush (NS 3 ml) 3 ml PER PROTOCOL IV ; Start 01/03/19 at 07:00 Ondansetron HCl (Zofran Inj) 4 mg Q6H PRN IV NAUSEA/VOMITING; Start 01/03/19 at 07:00 Acetaminophen (Tylenol Tab) 650 mg Q6H PRN PO .PAIN 1-3 OR TEMP; Start 01/03/19 at 07:00 Morphine Sulfate (morphine) 2 mg Q4H PRN IV .SEVERE PAIN 7-10; Start 01/03/19 at 07:00 Docusate Sodium (Colace) 100 mg Q12H PRN PO .CONSTIPATION Last administered on 01/06/19at 20:19; Admin Dose 100 MG; Start 01/03/19 at 07:00 Magnesium Hydroxide (Milk Of Mag) 30 ml DAILY PRN PO .CONSTIPATION Last administered on 01/08/19at 05:28; Admin Dose 30 ML; Start 01/03/19 at 07:00 Heparin Sodium (Porcine) (Heparin (5000 Units/1ml)) 5,000 unit Q12 SC Last administered on 01/08/19at 19:54; Admin Dose 5,000 UNIT; Start 01/03/19 at 09:00 Albuterol/ Ipratropium (Duoneb) 3 ml Q4H RESP THERAPY PRN HHN SHORTNESS OF BREATH; Start 01/03/19 at 07:00 Nitroglycerin (Nitroglycerin (Sl Tab) 0.4 Mg) 1 tab Q5M PRN SL ANGINA Last administered on 01/06/19at 14:37; Admin Dose 1 TAB; Start 01/03/19 at 07:00 Atorvastatin Calcium (Lipitor) 80 mg HS PO Last administered on 01/08/19at 19:49; Admin Dose 80 MG; Start 01/03/19 at 21:00 Diltiazem HCl (Cardizem Cd) 360 mg DAILY PO Last administered on 01/08/19at 08:05; Admin Dose 360 MG; Start 01/07/19 at 09:00 Trazodone HCl (Desyrel) 50 mg HS PRN PO insomnia; Start 01/07/19 at 15:00 Warfarin Sodium (Coumadin) 5 mg DAILY@1700 PO Last administered on 01/08/19at 22:29; Admin Dose 5 MG; Start 01/08/19 at 22:00 NANETTE ALLEN Jan 09, 2019 07:43
[2019-01-09] MEDS: DILTIAZEM (CD) 240 MG CAP PO SCH (08:21)
[2019-01-09] MEDS: HEPARIN 5,000 UNIT/1 ML VIAL SC SCH (08:33)
[2019-01-09] MEDS ORDERED: ENOXAPARIN 80 MG/0.8 ML SYG SC SCH (10:00)
[2019-01-09] MEDS: FAMOTIDINE 20 MG TAB PO SCH ×2 (12:38→20:38)
--- NOTE | 2019-01-09 14:39 | PN ---
Date/Time of Note Date/Time of Note DATE: 01/09/19 TIME: 14:36 Assessment/Plan VTE Prophylaxis Risk score (from Ns)>0 risk: 4 SCD applied (from Ns): No SCD contraindicated: low risk/ambulating Pharmacological prophylaxis: apixaban Lines/Catheters IV Catheter Type (from [facility]): Saline Lock Urinary Cath still in place: No Assessment/Plan Assessment/Plan 1. Acute L cerebellar CVA- stable - Neurology consultation appreciated and cleared to start anticoagulation. - PT on board 2. Atrial fibrillation - started Coumadin/LMWH bridging - currently rate controlled and continue current medications - Cardiology on board and appreciate recommendations 3. 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 interatrial cardiac shunt 5. Disposition - Continue Coumadin bridging and once INR therapeutic will d/c home Result Diagram: 01/09/19 0509 01/09/19 0509 Results 24hrs Laboratory Tests Test 01/08/19 19:09 01/09/19 05:09 Prothrombin Time 12.1 Prothrombin Time Ratio 0.9 INR International Normalized Ratio 0.89 White Blood Count 8.0 Red Blood Count 4.89 Hemoglobin 12.6 Hematocrit 40.0 Mean Corpuscular Volume 81.8 L Mean Corpuscular Hemoglobin 25.8 L Mean Corpuscular Hemoglobin Concent 31.5 L Red Cell Distribution Width 13.4 Platelet Count 200 Mean Platelet Volume 12.8 H Immature Granulocytes % 0.300 Neutrophils % 68.8 Lymphocytes % 19.2 Monocytes % 8.9 Eosinophils % 2.3 Basophils % 0.5 Nucleated Red Blood Cells % 0.0 Immature Granulocytes # 0.020 Neutrophils # 5.5 Lymphocytes # 1.5 Monocytes # 0.7 Eosinophils # 0.2 Basophils # 0.0 Nucleated Red Blood Cells # 0.0 Sodium Level 139 Potassium Level 4.2 Chloride Level 106 Carbon Dioxide Level 26 Anion Gap 7 Blood Urea Nitrogen 10 Creatinine 0.66 Est Glomerular Filtrat Rate mL/min > 60 Glucose Level 94 Calcium Level 9.0 Subjective 24 Hr Interval Summary Free Text/Dictation Patient still with palpitations when ambulating and at rest which are concerning to her. Denies any chest pain or LOC. Exam/Review of Systems Exam Vitals Vital Signs Date Temp Pulse Resp B/P (MAP) Pulse Ox O2 O2 Flow FiO2 Time Delivery Rate 01/09/19 98.0 80 22 112/72 96 Room Air 12:44 (85) 01/08/19 2.0 03:11 Intake and Output 01/08/19 01/08/19 01/09/19 1515:00 23:00 07:00 IntakeIntake Total 1040 ml 950 ml BalanceBalance 1040 ml 950 ml Exam General: no acute distress. answering questions appropriately Neck: supple CVS: S1, S2, irregular rhythm, regular rate. no murmurs Lungs: clear to auscultation bilaterally. no wheezing or rhonchi Abd: soft, nontender, nondistended. no rebound or guarding. bowel sounds present diffusely Ext: moving all extremities. no cyanosis, clubbing, or edema Skin: warm, dry. Results Results 24hrs Laboratory Tests Test 01/08/19 19:09 01/09/19 05:09 Prothrombin Time 12.1 Prothrombin Time Ratio 0.9 INR International Normalized Ratio 0.89 White Blood Count 8.0 Red Blood Count 4.89 Hemoglobin 12.6 Hematocrit 40.0 Mean Corpuscular Volume 81.8 L Mean Corpuscular Hemoglobin 25.8 L Mean Corpuscular Hemoglobin Concent 31.5 L Red Cell Distribution Width 13.4 Platelet Count 200 Mean Platelet Volume 12.8 H Immature Granulocytes % 0.300 Neutrophils % 68.8 Lymphocytes % 19.2 Monocytes % 8.9 Eosinophils % 2.3 Basophils % 0.5 Nucleated Red Blood Cells % 0.0 Immature Granulocytes # 0.020 Neutrophils # 5.5 Lymphocytes # 1.5 Monocytes # 0.7 Eosinophils # 0.2 Basophils # 0.0 Nucleated Red Blood Cells # 0.0 Sodium Level 139 Potassium Level 4.2 Chloride Level 106 Carbon Dioxide Level 26 Anion Gap 7 Blood Urea Nitrogen 10 Creatinine 0.66 Est Glomerular Filtrat Rate mL/min > 60 Glucose Level 94 Calcium Level 9.0 Medications Medication Current Medications IV Flush (NS 3 ml) 3 ml PER PROTOCOL IV ; Start 01/03/19 at 07:00 Ondansetron HCl (Zofran Inj) 4 mg Q6H PRN IV NAUSEA/VOMITING; Start 01/03/19 at 07:00 Acetaminophen (Tylenol Tab) 650 mg Q6H PRN PO .PAIN 1-3 OR TEMP; Start 01/03/19 at 07:00 Morphine Sulfate (morphine) 2 mg Q4H PRN IV .SEVERE PAIN 7-10; Start 01/03/19 at 07:00 Docusate Sodium (Colace) 100 mg Q12H PRN PO .CONSTIPATION Last administered on 01/06/19 20:19; Admin Dose 100 MG; Start 01/03/19 at 07:00 Magnesium Hydroxide (Milk Of Mag) 30 ml DAILY PRN PO .CONSTIPATION Last administered on 01/08/19 05:28; Admin Dose 30 ML; Start 01/03/19 at 07:00 Albuterol/ Ipratropium (Duoneb) 3 ml Q4H RESP THERAPY PRN HHN SHORTNESS OF BREATH; Start 01/03/19 at 07:00 Nitroglycerin (Nitroglycerin (Sl Tab) 0.4 Mg) 1 tab Q5M PRN SL ANGINA Last administered on 01/06/19 14:37; Admin Dose 1 TAB; Start 01/03/19 at 07:00 Atorvastatin Calcium (Lipitor) 80 mg HS PO Last administered on 01/08/19 19:49; Admin Dose 80 MG; Start 01/03/19 at 21:00 Diltiazem HCl (Cardizem Cd) 360 mg DAILY PO Last administered on 01/09/19 08:21; Admin Dose 360 MG; Start 01/07/19 at 09:00 Warfarin Sodium (Coumadin) 5 mg DAILY@1700 PO Last administered on 01/08/19 22:29; Admin Dose 5 MG; Start 01/08/19 at 22:00 Trazodone HCl (Desyrel) 50 mg HS PO ; Start 01/09/19 at 21:00 Enoxaparin Sodium (Lovenox) 70 mg Q24H SC ; Start 01/10/19 at 09:00 Famotidine (Pepcid) 20 mg BID PO Last administered on 01/09/19 12:38; Admin Dose 20 MG; Start 01/09/19 at 12:00 NEWTON YANEZ MD Jan 09, 2019 14:39
[2019-01-09] MEDS: WARFARIN 5 MG TAB PO SCH (17:31)
[2019-01-09] MEDS: ATORVASTATIN 80 MG TAB PO SCH (20:38)
[2019-01-09] MEDS ORDERED: traZODone 50 MG TAB PO SCH (21:00)
[2019-01-10] VITALS (9 sets, daily range): BP systolic 92–114; BP diastolic 58–70; PULSE 78–100; RESP 18–20
[2019-01-10] MEDS: DILTIAZEM (CD) 240 MG CAP PO SCH (08:30)
[2019-01-10] MEDS: FAMOTIDINE 20 MG TAB PO SCH ×2 (08:31→21:00)
[2019-01-10] MEDS: ENOXAPARIN 80 MG/0.8 ML SYG SC SCH (08:34)
--- NOTE | 2019-01-10 09:39 | CONS ---
Assessment/Plan Assessment/Plan Hospital Course (Demo Recall) Acute left cerebellar CVA: With now apparent rheumatic mitral stenosis and atrial fibrillation, this is the cause. There is also a left-right shunt from likely PFO but I dont think this is the cause. 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 This was not well seen on echo 11/16 (I reviewed the images again) as she was significantly ta chycardic so both visually and by gradients it was not seen). She can be evaluated for balloon valvuloplasty as outpt Persistent atrial fibrillation: Previously CHADSVASC 0 but now that she has rheumatic mitral stenosis, this calculation is irrelevant and she needs anticoagulation with coumadin Presyncope/syncope: due to cerebellar CVA -increase to coumadin 7.5mg daily. D/c lovenox when INR >1.8 to avoid overlap. Will probably be discharged on 5mg daily and have outpt INR check -check daily INR. Goal 2-3 -diltiazem 360mg Consultation Date/Type/Reason Admit Date/Time Jan 03, 2019 at 02:50 Initial Consult Date 01/03/19 Type of Consult Cardiology Requesting Provider: LESLYE PARKER NP Date/Time of Note DATE: 01/10/19 TIME: 09:37 24 HR Interval Summary Free Text/Dictation INR 1.1. HR elevated this am but did not get meds yet. No complaints Exam/Review of Systems Vital Signs Vitals Vital Signs Date Temp Pulse Resp B/P (MAP) Pulse Ox O2 O2 Flow FiO2 Time Delivery Rate 01/10/19 98.0 98 20 94/62 (73) 94 Room Air 08:00 01/08/19 2.0 03:11 Intake and Output 01/09/19 01/09/19 01/10/19 1515:00 23:00 07:00 IntakeIntake Total 930 ml 250 ml BalanceBalance 930 ml 250 ml Exam Constitutional: alert, oriented Psych: no complaints, nl mood/affect Head: normocephalic, atraumatic Neck: supple; No jvd Respiratory: clear to auscultation; No crackles/rales Cardiovascular: systolic murmur (2/6 RASHMI); No regular rate and rhythm (IRIR), No edema Neurological: nl mental status, nl speech Labs Result Diagram: 01/10/19 0632 01/10/19 0632 Results 24hrs Laboratory Tests Test 01/10/19 06:32 White Blood Count 7.4 Red Blood Count 5.30 Hemoglobin 13.8 Hematocrit 42.8 Mean Corpuscular Volume 80.8 L Mean Corpuscular Hemoglobin 26.0 L Mean Corpuscular Hemoglobin Concent 32.2 Red Cell Distribution Width 13.4 Platelet Count 222 Mean Platelet Volume 12.4 H Immature Granulocytes % 0.300 Neutrophils % 65.7 Lymphocytes % 21.8 Monocytes % 9.0 Eosinophils % 2.4 Basophils % 0.8 Nucleated Red Blood Cells % 0.0 Immature Granulocytes # 0.020 Neutrophils # 4.9 Lymphocytes # 1.6 Monocytes # 0.7 Eosinophils # 0.2 Basophils # 0.1 Nucleated Red Blood Cells # 0.0 Prothrombin Time 14.8 # Prothrombin Time Ratio 1.2 INR International Normalized Ratio 1.15 Sodium Level 139 Potassium Level 4.3 Chloride Level 107 Carbon Dioxide Level 24 Anion Gap 8 Blood Urea Nitrogen 12 Creatinine 0.67 Est Glomerular Filtrat Rate mL/min > 60 Glucose Level 93 Calcium Level 9.2 Medications Medications Current Medications IV Flush (NS 3 ml) 3 ml PER PROTOCOL IV ; Start 01/03/19 at 07:00 Ondansetron HCl (Zofran Inj) 4 mg Q6H PRN IV NAUSEA/VOMITING; Start 01/03/19 at 07:00 Acetaminophen (Tylenol Tab) 650 mg Q6H PRN PO .PAIN 1-3 OR TEMP; Start 01/03/19 at 07:00 Morphine Sulfate (morphine) 2 mg Q4H PRN IV .SEVERE PAIN 7-10; Start 01/03/19 at 07:00 Docusate Sodium (Colace) 100 mg Q12H PRN PO .CONSTIPATION Last administered on 01/06/19at 20:19; Admin Dose 100 MG; Start 01/03/19 at 07:00 Magnesium Hydroxide (Milk Of Mag) 30 ml DAILY PRN PO .CONSTIPATION Last administered on 01/08/19at 05:28; Admin Dose 30 ML; Start 01/03/19 at 07:00 Albuterol/ Ipratropium (Duoneb) 3 ml Q4H RESP THERAPY PRN HHN SHORTNESS OF BREATH; Start 01/03/19 at 07:00 Nitroglycerin (Nitroglycerin (Sl Tab) 0.4 Mg) 1 tab Q5M PRN SL ANGINA Last administered on 01/06/19 14:37; Admin Dose 1 TAB; Start 01/03/19 at 07:00 Atorvastatin Calcium (Lipitor) 80 mg HS PO Last administered on 01/09/19 20:38; Admin Dose 80 MG; Start 01/03/19 at 21:00 Diltiazem HCl (Cardizem Cd) 360 mg DAILY PO Last administered on 01/10/19 08:30; Admin Dose 360 MG; Start 01/07/19 at 09:00 Trazodone HCl (Desyrel) 50 mg HS PO Last administered on 01/09/19 20:38; Admin Dose 50 MG; Start 01/09/19 at 21:00 Enoxaparin Sodium (Lovenox) 70 mg Q24H SC Last administered on 01/10/19 08:34; Admin Dose 70 MG; Start 01/10/19 at 09:00 Famotidine (Pepcid) 20 mg BID PO Last administered on 01/10/19 08:31; Admin Dose 20 MG; Start 01/09/19 at 12:00 Warfarin Sodium (Coumadin) 7.5 mg DAILY@1700 PO ; Start 01/10/19 at 17:00 NANETTE ALLEN Jan 10, 2019 09:39
--- NOTE | 2019-01-10 14:28 | PN ---
Date/Time of Note Date/Time of Note DATE: 01/10/19 TIME: 14:27 Assessment/Plan VTE Prophylaxis Risk score (from Ns)>0 risk: 4 SCD applied (from [facility] [place]): No SCD contraindicated: low risk/ambulating Pharmacological prophylaxis: warfarin tx Lines/Catheters IV Catheter Type (from [facility]): Saline Lock Urinary Cath still in place: No Assessment/Plan Assessment/Plan 1. Acute L cerebellar CVA- stable - Neurology consultation appreciated and cleared to start anticoagulation. - PT on board 2. Atrial fibrillation - Coumadin increased to 7.5mg and will d/c LMWH when INR 1.8. Plans for d/c on Warfarin 5mg - currently rate controlled and continue current medications - Cardiology on board and appreciate recommendations 3. Rheumatic mitral stenosis - stable - will need outpatient evaluation for valvuloplasty 4. interatrial cardiac shunt 5. Disposition - Continue Coumadin bridging and once INR therapeutic will d/c home Result Diagram: 01/10/19 0632 01/10/19 0632 Results 24hrs Laboratory Tests Test 01/10/19 06:32 White Blood Count 7.4 Red Blood Count 5.30 Hemoglobin 13.8 Hematocrit 42.8 Mean Corpuscular Volume 80.8 L Mean Corpuscular Hemoglobin 26.0 L Mean Corpuscular Hemoglobin Concent 32.2 Red Cell Distribution Width 13.4 Platelet Count 222 Mean Platelet Volume 12.4 H Immature Granulocytes % 0.300 Neutrophils % 65.7 Lymphocytes % 21.8 Monocytes % 9.0 Eosinophils % 2.4 Basophils % 0.8 Nucleated Red Blood Cells % 0.0 Immature Granulocytes # 0.020 Neutrophils # 4.9 Lymphocytes # 1.6 Monocytes # 0.7 Eosinophils # 0.2 Basophils # 0.1 Nucleated Red Blood Cells # 0.0 Prothrombin Time 14.8 # Prothrombin Time Ratio 1.2 INR International Normalized Ratio 1.15 Sodium Level 139 Potassium Level 4.3 Chloride Level 107 Carbon Dioxide Level 24 Anion Gap 8 Blood Urea Nitrogen 12 Creatinine 0.67 Est Glomerular Filtrat Rate mL/min > 60 Glucose Level 93 Calcium Level 9.2 Subjective 24 Hr Interval Summary Free Text/Dictation Patient is complaining of occasional sharp chest pains that feel like pins and needles that occur especially with ambulation. Exam/Review of Systems Exam Vitals Vital Signs Date Temp Pulse Resp B/P (MAP) Pulse Ox O2 O2 Flow FiO2 Time Delivery Rate 01/10/19 98.0 97 18 114/70 99 11:29 (85) 01/10/19 Room Air 08:00 01/08/19 2.0 03:11 Intake and Output 01/09/19 01/09/19 01/10/19 1515:00 23:00 07:00 IntakeIntake Total 930 ml 250 ml BalanceBalance 930 ml 250 ml Exam General: no acute distress. answering questions appropriately Neck: supple CVS: S1, S2, irregular rhythm, regular rate. no murmurs Lungs: clear to auscultation bilaterally. no wheezing or rhonchi Abd: soft, nontender, nondistended. no rebound or guarding. bowel sounds present diffusely Ext: moving all extremities. no cyanosis, clubbing, or edema Skin: warm, dry. Results Results 24hrs Laboratory Tests Test 01/10/19 06:32 White Blood Count 7.4 Red Blood Count 5.30 Hemoglobin 13.8 Hematocrit 42.8 Mean Corpuscular Volume 80.8 L Mean Corpuscular Hemoglobin 26.0 L Mean Corpuscular Hemoglobin Concent 32.2 Red Cell Distribution Width 13.4 Platelet Count 222 Mean Platelet Volume 12.4 H Immature Granulocytes % 0.300 Neutrophils % 65.7 Lymphocytes % 21.8 Monocytes % 9.0 Eosinophils % 2.4 Basophils % 0.8 Nucleated Red Blood Cells % 0.0 Immature Granulocytes # 0.020 Neutrophils # 4.9 Lymphocytes # 1.6 Monocytes # 0.7 Eosinophils # 0.2 Basophils # 0.1 Nucleated Red Blood Cells # 0.0 Prothrombin Time 14.8 # Prothrombin Time Ratio 1.2 INR International Normalized Ratio 1.15 Sodium Level 139 Potassium Level 4.3 Chloride Level 107 Carbon Dioxide Level 24 Anion Gap 8 Blood Urea Nitrogen 12 Creatinine 0.67 Est Glomerular Filtrat Rate mL/min > 60 Glucose Level 93 Calcium Level 9.2 Medications Medication Current Medications IV Flush (NS 3 ml) 3 ml PER PROTOCOL IV ; Start 01/03/19 at 07:00 Ondansetron HCl (Zofran Inj) 4 mg Q6H PRN IV NAUSEA/VOMITING; Start 01/03/19 at 07:00 Acetaminophen (Tylenol Tab) 650 mg Q6H PRN PO .PAIN 1-3 OR TEMP Last administered on 01/10/19at 13:21; Admin Dose 650 MG; Start 01/03/19 at 07:00 Morphine Sulfate (morphine) 2 mg Q4H PRN IV .SEVERE PAIN 7-10; Start 01/03/19 at 07:00 Docusate Sodium (Colace) 100 mg Q12H PRN PO .CONSTIPATION Last administered on 01/06/19 20:19; Admin Dose 100 MG; Start 01/03/19 at 07:00 Magnesium Hydroxide (Milk Of Mag) 30 ml DAILY PRN PO .CONSTIPATION Last administered on 01/08/19 05:28; Admin Dose 30 ML; Start 01/03/19 at 07:00 Albuterol/ Ipratropium (Duoneb) 3 ml Q4H RESP THERAPY PRN HHN SHORTNESS OF BREATH; Start 01/03/19 at 07:00 Nitroglycerin (Nitroglycerin (Sl Tab) 0.4 Mg) 1 tab Q5M PRN SL ANGINA Last administered on 01/06/19 14:37; Admin Dose 1 TAB; Start 01/03/19 at 07:00 Atorvastatin Calcium (Lipitor) 80 mg HS PO Last administered on 01/09/19 20:38; Admin Dose 80 MG; Start 01/03/19 at 21:00 Diltiazem HCl (Cardizem Cd) 360 mg DAILY PO Last administered on 01/10/19 08:30; Admin Dose 360 MG; Start 01/07/19 at 09:00 Trazodone HCl (Desyrel) 50 mg HS PO Last administered on 01/09/19 20:38; Admin Dose 50 MG; Start 01/09/19 at 21:00 Enoxaparin Sodium (Lovenox) 70 mg Q24H SC Last administered on 01/10/19 08:34; Admin Dose 70 MG; Start 01/10/19 at 09:00 Famotidine (Pepcid) 20 mg BID PO Last administered on 01/10/19 08:31; Admin Dose 20 MG; Start 01/09/19 at 12:00 Warfarin Sodium (Coumadin) 7.5 mg DAILY@1700 PO ; Start 01/10/19 at 17:00 NEWTON YANEZ MD Jan 10, 2019 14:27
[2019-01-10] MEDS ORDERED: WARFARIN 7.5 MG TAB PO SCH (17:00)
[2019-01-10] MEDS: traZODone 50 MG TAB PO SCH (21:00)
[2019-01-10] MEDS: ATORVASTATIN 80 MG TAB PO SCH (21:00)
[2019-01-11] VITALS (12 sets, daily range): BP systolic 87–113; BP diastolic 52–74; PULSE 83–134; RESP 18–20
[2019-01-11] MEDS: FAMOTIDINE 20 MG TAB PO SCH ×2 (08:25→21:00)
[2019-01-11] MEDS: ENOXAPARIN 80 MG/0.8 ML SYG SC SCH (08:28)
[2019-01-11] MEDS: DILTIAZEM (CD) 240 MG CAP PO SCH (09:00)
[2019-01-11] MEDS ORDERED: DIGOXIN 500 MCG INJ IV ONE (10:30)
--- NOTE | 2019-01-11 12:22 | CONS ---
Assessment/Plan Assessment/Plan Hospital Course (Demo Recall) Acute left cerebellar CVA: With now apparent rheumatic mitral stenosis and atrial fibrillation, this is the cause. There is also a left-right shunt from likely PFO but I dont think this is the cause. 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 This was not well seen on echo 11/16 (I reviewed the images again) as she was significantly ta chycardic so both visually and by gradients it was not seen). She can be evaluated for balloon valvuloplasty as outpt Persistent atrial fibrillation: Previously CHADSVASC 0 but now that she has rheumatic mitral stenosis, this calculation is irrelevant and she needs anticoagulation with coumadin Presyncope/syncope: due to cerebellar CVA -already given digoxin 500mcg this am. Give 250mcg IV x 2 more 6 hours apart to complete load -start digoxin 125mcg daily tomorrow -decrease to diltiazem 120mg BID -decrease to coumadin 5mg daily -d/c lovenox -ok for d/c home tomorrow with above meds if INR 2-3 and HR controlled. Should have INR check within 1 week Consultation Date/Type/Reason Admit Date/Time Jan 03, 2019 at 02:50 Initial Consult Date 01/03/19 Type of Consult Cardiology Requesting Provider: LESLYE PARKER NP Date/Time of Note DATE: 01/11/19 TIME: 12:18 24 HR Interval Summary Free Text/Dictation HR elevated this am and BP low so unable to give diltiazem. Instead started on digoxin. No complaints. INR 1.8 Exam/Review of Systems Vital Signs Vitals Vital Signs Date Temp Pulse Resp B/P (MAP) Pulse Ox O2 O2 Flow FiO2 Time Delivery Rate 01/11/19 124 12:17 01/11/19 97.8 20 110/56 96 Room Air 11:06 (74) 01/10/19 21 22:36 01/08/19 2.0 03:11 Intake and Output 01/10/19 01/10/19 01/11/19 1515:00 23:00 07:00 IntakeIntake Total 800 ml 500 ml BalanceBalance 800 ml 500 ml Exam Constitutional: alert, oriented Psych: no complaints, nl mood/affect Head: normocephalic, atraumatic Neck: supple; No jvd Respiratory: clear to auscultation; No crackles/rales Cardiovascular: systolic murmur (2/6 RASHMI); No regular rate and rhythm (IRIR, tachy 110s), No edema Gastrointestinal: soft Neurological: nl mental status, nl speech Labs Result Diagram: 01/10/19 0632 01/10/19 0632 Results 24hrs Laboratory Tests Test 01/11/19 05:27 Prothrombin Time 20.7 #H Prothrombin Time Ratio 1.6 INR International Normalized Ratio 1.77 Medications Medications Current Medications IV Flush (NS 3 ml) 3 ml PER PROTOCOL IV ; Start 01/03/19 at 07:00 Ondansetron HCl (Zofran Inj) 4 mg Q6H PRN IV NAUSEA/VOMITING; Start 01/03/19 at 07:00 Acetaminophen (Tylenol Tab) 650 mg Q6H PRN PO .PAIN 1-3 OR TEMP Last administered on 01/10/19at 13:21; Admin Dose 650 MG; Start 01/03/19 at 07:00 Morphine Sulfate (morphine) 2 mg Q4H PRN IV .SEVERE PAIN 7-10; Start 01/03/19 at 07:00 Docusate Sodium (Colace) 100 mg Q12H PRN PO .CONSTIPATION Last administered on 01/06/19 20:19; Admin Dose 100 MG; Start 01/03/19 at 07:00 Magnesium Hydroxide (Milk Of Mag) 30 ml DAILY PRN PO .CONSTIPATION Last administered on 01/08/19 05:28; Admin Dose 30 ML; Start 01/03/19 at 07:00 Albuterol/ Ipratropium (Duoneb) 3 ml Q4H RESP THERAPY PRN HHN SHORTNESS OF BREATH; Start 01/03/19 at 07:00 Nitroglycerin (Nitroglycerin (Sl Tab) 0.4 Mg) 1 tab Q5M PRN SL ANGINA Last administered on 01/06/19at 14:37; Admin Dose 1 TAB; Start 01/03/19 at 07:00 Atorvastatin Calcium (Lipitor) 80 mg HS PO Last administered on 01/10/19 21:00; Admin Dose 80 MG; Start 01/03/19 at 21:00 Enoxaparin Sodium (Lovenox) 70 mg Q24H SC Last administered on 01/11/19 08:28; Admin Dose 70 MG; Start 01/10/19 at 09:00; Stop 01/11/19 at 23:55 Famotidine (Pepcid) 20 mg BID PO Last administered on 01/11/19at 08:25; Admin Dose 20 MG; Start 01/09/19 at 12:00 Trazodone HCl (Desyrel) 100 mg HS PO Last administered on 01/10/19at 21:00; Admin Dose 100 MG; Start 01/10/19 at 21:00 Diltiazem HCl (Cardizem Cd) 120 mg BID PO ; Start 01/11/19 at 21:00 Warfarin Sodium (Coumadin) 5 mg DAILY@17 PO ; Start 01/11/19 at 17:00 Digoxin (Digoxin) 250 mcg Q6H IV ; Start 01/11/19 at 16:00; Stop 01/11/19 at 22:01 Digoxin (Digoxin) 0.125 mg DAILY@13 PO ; Start 01/12/19 at 13:00 NANETTE ALLEN Jan 11, 2019 12:22
--- NOTE | 2019-01-11 13:27 | PN ---
Date/Time of Note Date/Time of Note DATE: 01/11/19 TIME: 13:24 Assessment/Plan VTE Prophylaxis Risk score (from Ns)>0 risk: 3 SCD applied (from Ns): No SCD contraindicated: low risk/ambulating Pharmacological prophylaxis: warfarin tx Lines/Catheters IV [facility] Saline Lock Urinary Cath still in place: No Assessment/Plan Assessment/Plan 1. Acute L cerebellar CVA- stable - Neurology consultation appreciated. no further workup needed - PT on board 2. Atrial fibrillation - INR 1.77 today and will most likely be therapeutic tomorrow. Will d/c LMWH and plans for d/c on Warfarin 5mg. Will need INR checked within 1 week - not tolerating Cardizem and dose decreased. Started on digoxin for better rate control - Cardiology on board and appreciate recommendations 3. Rheumatic mitral stenosis - stable - will need outpatient evaluation for valvuloplasty 4. interatrial cardiac shunt 5. Disposition - If tolerating digoxin and INR therapeutic tomorrow, will d/c home Result Diagram: 01/10/19 0632 01/10/19 0632 Results 24hrs Laboratory Tests Test 01/11/19 05:27 Prothrombin Time 20.7 #H Prothrombin Time Ratio 1.6 INR International Normalized Ratio 1.77 Subjective 24 Hr Interval Summary Free Text/Dictation Patient doing well but still with episodes of pins and needles in chest. No acute overnight events. Explained Vitamin K effects on Coumadin at patients request Exam/Review of Systems Exam Vitals Vital Signs Date Temp Pulse Resp B/P (MAP) Pulse Ox O2 O2 Flow FiO2 Time Delivery Rate 01/11/19 124 12:17 01/11/19 97.8 20 110/56 96 Room Air 11:06 (74) 01/10/19 21 22:36 01/08/19 2.0 03:11 Intake and Output 01/10/19 01/10/19 01/11/19 1515:00 23:00 07:00 IntakeIntake Total 800 ml 500 ml BalanceBalance 800 ml 500 ml Exam General: no acute distress. answering questions appropriately Neck: supple CVS: S1, S2, irregular rhythm, regular rate. no murmurs Lungs: clear to auscultation bilaterally. no wheezing or rhonchi Abd: soft, nontender, nondistended. no rebound or guarding. bowel sounds present diffusely Ext: moving all extremities. no cyanosis, clubbing, or edema Skin: warm, dry. Results Results 24hrs Laboratory Tests Test 01/11/19 05:27 Prothrombin Time 20.7 #H Prothrombin Time Ratio 1.6 INR International Normalized Ratio 1.77 Medications Medication Current Medications IV Flush (NS 3 ml) 3 ml PER PROTOCOL IV ; Start 01/03/19 at 07:00 Ondansetron HCl (Zofran Inj) 4 mg Q6H PRN IV NAUSEA/VOMITING; Start 01/03/19 at 07:00 Acetaminophen (Tylenol Tab) 650 mg Q6H PRN PO .PAIN 1-3 OR TEMP Last administered on 01/10/19 13:21; Admin Dose 650 MG; Start 01/03/19 at 07:00 Morphine Sulfate (morphine) 2 mg Q4H PRN IV .SEVERE PAIN 7-10; Start 01/03/19 at 07:00 Docusate Sodium (Colace) 100 mg Q12H PRN PO .CONSTIPATION Last administered on 01/06/19 20:19; Admin Dose 100 MG; Start 01/03/19 at 07:00 Magnesium Hydroxide (Milk Of Mag) 30 ml DAILY PRN PO .CONSTIPATION Last administered on 01/08/19 05:28; Admin Dose 30 ML; Start 01/03/19 at 07:00 Albuterol/ Ipratropium (Duoneb) 3 ml Q4H RESP THERAPY PRN HHN SHORTNESS OF BREATH; Start 01/03/19 at 07:00 Nitroglycerin (Nitroglycerin (Sl Tab) 0.4 Mg) 1 tab Q5M PRN SL ANGINA Last administered on 01/06/19at 14:37; Admin Dose 1 TAB; Start 01/03/19 at 07:00 Atorvastatin Calcium (Lipitor) 80 mg HS PO Last administered on 01/10/19at 21:00; Admin Dose 80 MG; Start 01/03/19 at 21:00 Famotidine (Pepcid) 20 mg BID PO Last administered on 01/11/19at 08:25; Admin Dose 20 MG; Start 01/09/19 at 12:00 Trazodone HCl (Desyrel) 100 mg HS PO Last administered on 01/10/19at 21:00; Admin Dose 100 MG; Start 01/10/19 at 21:00 Diltiazem HCl (Cardizem Cd) 120 mg BID PO ; Start 01/11/19 at 21:00 Warfarin Sodium (Coumadin) 5 mg DAILY@17 PO ; Start 01/11/19 at 17:00 Digoxin (Digoxin) 250 mcg Q6H IV ; Start 01/11/19 at 16:00; Stop 01/11/19 at 22:01 Digoxin (Digoxin) 0.125 mg DAILY@13 PO ; Start 01/12/19 at 13:00 NEWTON YANEZ MD Jan 11, 2019 13:27
[2019-01-11] MEDS: WARFARIN 5 MG TAB PO SCH (16:06)
[2019-01-11] MEDS: DIGOXIN 500 MCG INJ IV SCH (16:14)
[2019-01-11] MEDS: NITROGLYCERIN (SL) 0.4 MG TAB SL PRN (18:52)
[2019-01-11] MEDS: ATORVASTATIN 80 MG TAB PO SCH (21:00)
[2019-01-11] MEDS: DILTIAZEM (CD) 120 MG CAP PO SCH (21:00)
[2019-01-11] MEDS: traZODone 50 MG TAB PO SCH (21:00)
[2019-01-12] VITALS (12 sets, daily range): BP systolic 95–116; BP diastolic 60–75; PULSE 74–107; RESP 18–20
[2019-01-12] MEDS: DIGOXIN 500 MCG INJ IV SCH (01:13)
--- NOTE | 2019-01-12 09:32 | PN ---
Date/Time of Note Date/Time of Note DATE: 01/12/19 TIME: 09:26 Assessment/Plan VTE Prophylaxis Risk score (from Nsg)>0 risk: 2 SCD applied (from Ns): No SCD contraindicated: low risk/ambulating Pharmacological prophylaxis: warfarin tx Lines/Catheters Urinary Cath still in place: No Assessment/Plan Assessment/Plan 1. Atrial fibrillation - elevated HR this am when ambulating but did not get am medications yet. 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 Will need INR checked within 1 week - Cardiology on board and appreciate recommendations 2. Acute L cerebellar CVA- stable - Neurology consultation appreciated. no further workup needed - PT on board 3. Rheumatic mitral stenosis - stable - will need outpatient evaluation for valvuloplasty 4. interatrial cardiac shunt 5. Disposition - If HR remains stable after am medications given, will d/c home Result Diagram: 01/10/19 0632 01/10/19 0632 Results 24hrs Laboratory Tests Test 01/12/19 05:15 Prothrombin Time 27.4 #H Prothrombin Time Ratio 2.1 INR International Normalized Ratio 2.54 Subjective 24 Hr Interval Summary Free Text/Dictation Patient states shes feeling better. States she was too sleepy in the am after given Trazodone. With some palpitations but improving. No acute overnight events. Exam/Review of Systems Exam Vitals Vital Signs Date Temp Pulse Resp B/P (MAP) Pulse Ox O2 O2 Flow FiO2 Time Delivery Rate 01/12/19 94 08:01 01/12/19 97.9 18 116/72 97 Room Air 07:37 (87) 01/10/19 21 22:36 Intake and Output 01/11/19 01/11/19 01/12/19 1515:00 23:00 07:00 IntakeIntake Total 150 ml BalanceBalance 150 ml Exam General: no acute distress. answering questions appropriately Neck: supple CVS: S1, S2, irregular rhythm, tachycardia. no murmurs Lungs: clear to auscultation bilaterally. no wheezing or rhonchi Abd: soft, nontender, nondistended. no rebound or guarding. bowel sounds present diffusely Ext: moving all extremities. no cyanosis, clubbing, or edema Skin: warm, dry. Results Results 24hrs Laboratory Tests Test 01/12/19 05:15 Prothrombin Time 27.4 #H Prothrombin Time Ratio 2.1 INR International Normalized Ratio 2.54 Medications Medication Current Medications IV Flush (NS 3 ml) 3 ml PER PROTOCOL IV ; Start 01/03/19 at 07:00 Ondansetron HCl (Zofran Inj) 4 mg Q6H PRN IV NAUSEA/VOMITING; Start 01/03/19 at 07:00 Acetaminophen (Tylenol Tab) 650 mg Q6H PRN PO .PAIN 1-3 OR TEMP Last administered on 01/10/19 13:21; Admin Dose 650 MG; Start 01/03/19 at 07:00 Morphine Sulfate (morphine) 2 mg Q4H PRN IV .SEVERE PAIN 7-10; Start 01/03/19 at 07:00 Docusate Sodium (Colace) 100 mg Q12H PRN PO .CONSTIPATION Last administered on 01/06/19 20:19; Admin Dose 100 MG; Start 01/03/19 at 07:00 Magnesium Hydroxide (Milk Of Mag) 30 ml DAILY PRN PO .CONSTIPATION Last administered on 01/08/19 05:28; Admin Dose 30 ML; Start 01/03/19 at 07:00 Albuterol/ Ipratropium (Duoneb) 3 ml Q4H RESP THERAPY PRN HHN SHORTNESS OF ALLEGRA TH; Start 01/03/19 at 07:00 Nitroglycerin (Nitroglycerin (Sl Tab) 0.4 Mg) 1 tab Q5M PRN SL ANGINA Last administered on 01/11/19 18:52; Admin Dose 1 TAB; Start 01/03/19 at 07:00 Atorvastatin Calcium (Lipitor) 80 mg HS PO Last administered on 01/11/19 21:00; Admin Dose 80 MG; Start 01/03/19 at 21:00 Famotidine (Pepcid) 20 mg BID PO Last administered on 01/11/19 21:00; Admin Dose 20 MG; Start 01/09/19 at 12:00 Trazodone HCl (Desyrel) 100 mg HS PO Last administered on 01/11/19 21:00; Admin Dose 100 MG; Start 01/10/19 at 21:00 Diltiazem HCl (Cardizem Cd) 120 mg BID PO Last administered on 01/11/19 21:00; Admin Dose 120 MG; Start 01/11/19 at 21:00 Warfarin Sodium (Coumadin) 5 mg DAILY@17 PO Last administered on 01/11/19at 16:06; Admin Dose 5 MG; Start 01/11/19 at 17:00 Digoxin (Digoxin) 0.125 mg DAILY@13 PO ; Start 01/12/19 at 13:00 NEWTON YANEZ MD Jan 12, 2019 09:32
[2019-01-12] MEDS ORDERED: DIGO125T PO (09:35)
[2019-01-12] MEDS ORDERED: COU5 PO (09:35)
[2019-01-12] MEDS ORDERED: FAMO20TA18 PO (09:35)
[2019-01-12] MEDS ORDERED: ATOR-2 PO (09:35)
[2019-01-12] MEDS ORDERED: DILT120C77 PO ×2 (09:35→09:47)
[2019-01-12] MEDS: DIGOXIN 0.125 MG TAB PO SCH ×2 (09:44→10:08)
--- NOTE | 2019-01-12 09:44 | PDOCDIS ---
Discharge Instructions DIAGNOSIS Discharge Diagnosis 1. Acute L cerebellar cerebrovascular accident 2. Atrial fibrillation 3. Rheumatic mitral stenosis 4. interatrial cardiac shunt CONDITION [id number] Patient Condition: [id number] Stable HOME CARE INSTRUCTIONS: [id number] Diet Instructions: [id number] Low Fat /Cholesterol ACTIVITY: [id number] Activity Restrictions: [id number] No Restrictions FOLLOW UP/APPOINTMENTS Follow-up Plan 1. Follow up with your primary care physician in 1 week 2. You will need to have you INR checked in 1 week in order to make sure your blood levels of Warfarin are therapeutic. Continue taking Warfarin 5mg until told otherwise by your primary care physician 3. Continue taking all medications prescribed to help control your heart rate and rhythm 4. It is important to avoid as much as possible the foods that are high in Vitamin K as previously discussed 5. If you fall and hit your head, or experience a bleed that does not stop, please go immediately to the nearest emergency room since you are on a blood thinner and will need medication to reverse the effects of Warfarin 6. Continue taking Famotidine twice a day to help with gastritis symptoms 7. If experiencing any concerning symptoms, please go to your nearest emergency department 8. Per monument setter helper, he recommends getting a referral from your primary care physician to a Cardiothoracic surgeon to assess replacement of your Mitral valve in your heart. It was found to be hardened from previous illness and can be replaced. This is most likely contributing to your atrial fibrillation. 1. Siga con kay mdico de atencin primaria en 1 semana 2. Usted necesitar que le revisen inR en 1 semana con el fin de asegurarse de que joshua niveles en wade de warfarina son teraputicos. Contine tomando Warfarina 5mg hasta que kay mdico de atencin primaria le indique lo contrario 3. Contine tomando todos los medicamentos recetados para ayudar a controlar kay frecuencia cardaca y ritmo 4. Es importante evitar en la medida de lo posible los alimentos que son altos en vitamina K angela se discuti anteriormente 5. Si se y se golpea la ilir, o experimenta un sangrado que no se detiene, vaya inmediatamente a la igor de emergencias ms cercana, ya que est tomando un anticoagulante y necesitar medicamentos para revertir los efectos de la warfarina 6. Contine tomando Famotidina dos veces al da para ayudar con los sntomas de la gastritis 7. Si experimenta algn sntoma preocupante, por favor vaya a kay departamento de emergencias ms cercano 8. Per cardilogo, recomienda obtener kennedi referencia de kay mdico de atencin primaria a un cirujano cardiotorcico para evaluar el reemplazo de kay vlvula mitral en kay corazn. Se encontr que se endureceba de kennedi enfermedad anterior y se puede reemplazar. Lo ms probable es que esto contribuya a la fibrilacin auricular. NEWTON YANEZ MD Jan 12, 2019 09:44
[2019-01-12] MEDS: DILTIAZEM (CD) 120 MG CAP PO SCH (09:45)
[2019-01-12] MEDS: FAMOTIDINE 20 MG TAB PO SCH (09:45)
[2019-01-12] MEDS ORDERED: DILT240C79 PO (09:47)
--- NOTE | 2019-01-12 09:50 | CONS ---
Assessment/Plan Assessment/Plan Hospital Course (Demo Recall) Acute left cerebellar CVA: With now apparent rheumatic mitral stenosis and atrial fibrillation, this is the cause. There is also a left-right shunt from likely PFO but I dont think this is the cause. 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 This was not well seen on echo 11/16 (I reviewed the images again) as she was significantly ta chycardic so both visually and by gradients it was not seen). She can be evaluated for balloon valvuloplasty as outpt Persistent atrial fibrillation: Previously CHADSVASC 0 but now that she has rheumatic mitral stenosis, this calculation is irrelevant and she needs anticoagulation with coumadin Presyncope/syncope: due to cerebellar CVA -change to diltiazem 240mg in am and 120mg in pm -digoxin 125mcg daily -coumadin 5mg daily -ok for d/c today with above meds if HR <100. Should have INR check within 1 week Consultation Date/Type/Reason Admit Date/Time Jan 03, 2019 at 02:50 Initial Consult Date 01/03/19 Type of Consult Cardiology Requesting Provider: LESLYE PARKER NP Date/Time of Note DATE: 01/12/19 TIME: 09:47 24 HR Interval Summary Free Text/Dictation Episode of palpitations which was interpreted as chest pain last night. None since. HR controlled at rest, elevated this am with activity Exam/Review of Systems Vital Signs Vitals Vital Signs Date Temp Pulse Resp B/P (MAP) Pulse Ox O2 O2 Flow FiO2 Time Delivery Rate 01/12/19 94 08:01 01/12/19 97.9 18 116/72 97 Room Air 07:37 (87) 01/10/19 21 22:36 Intake and Output 01/11/19 01/11/19 01/12/19 1515:00 23:00 07:00 IntakeIntake Total 150 ml BalanceBalance 150 ml Exam Constitutional: alert, oriented Psych: no complaints, nl mood/affect Head: normocephalic, atraumatic Neck: supple; No jvd Respiratory: clear to auscultation; No crackles/rales Cardiovascular: systolic murmur (2/6 RASHMI); No regular rate and rhythm, No edema Gastrointestinal: soft, non-tender; No distended Neurological: nl mental status, nl speech Labs Result Diagram: 01/10/19 0632 01/10/19 0632 Results 24hrs Laboratory Tests Test 01/12/19 05:15 Prothrombin Time 27.4 #H Prothrombin Time Ratio 2.1 INR International Normalized Ratio 2.54 Medications Medications Current Medications IV Flush (NS 3 ml) 3 ml PER PROTOCOL IV ; Start 01/03/19 at 07:00 Ondansetron HCl (Zofran Inj) 4 mg Q6H PRN IV NAUSEA/VOMITING; Start 01/03/19 at 07:00 Acetaminophen (Tylenol Tab) 650 mg Q6H PRN PO .PAIN 1-3 OR TEMP Last administered on 01/10/19at 13:21; Admin Dose 650 MG; Start 01/03/19 at 07:00 Morphine Sulfate (morphine) 2 mg Q4H PRN IV .SEVERE PAIN 7-10; Start 01/03/19 at 07:00 Docusate Sodium (Colace) 100 mg Q12H PRN PO .CONSTIPATION Last administered on 01/06/19 20:19; Admin Dose 100 MG; Start 01/03/19 at 07:00 Magnesium Hydroxide (Milk Of Mag) 30 ml DAILY PRN PO .CONSTIPATION Last administered on 01/08/19 05:28; Admin Dose 30 ML; Start 01/03/19 at 07:00 Albuterol/ Ipratropium (Duoneb) 3 ml Q4H RESP THERAPY PRN HHN SHORTNESS OF BREATH; Start 01/03/19 at 07:00 Nitroglycerin (Nitroglycerin (Sl Tab) 0.4 Mg) 1 tab Q5M PRN SL ANGINA Last administered on 01/11/19at 18:52; Admin Dose 1 TAB; Start 01/03/19 at 07:00 Atorvastatin Calcium (Lipitor) 80 mg HS PO Last administered on 01/11/19 21:00; Admin Dose 80 MG; Start 01/03/19 at 21:00 Famotidine (Pepcid) 20 mg BID PO Last administered on 01/11/19 21:00; Admin Dose 20 MG; Start 01/09/19 at 12:00 Trazodone HCl (Desyrel) 100 mg HS PO Last administered on 01/11/19at 21:00; Admin Dose 100 MG; Start 01/10/19 at 21:00 Diltiazem HCl (Cardizem Cd) 120 mg BID PO Last administered on 01/11/19at 21:00; Admin Dose 120 MG; Start 01/11/19 at 21:00 Warfarin Sodium (Coumadin) 5 mg DAILY@17 PO Last administered on 01/11/19at 16:06; Admin Dose 5 MG; Start 01/11/19 at 17:00 Digoxin (Digoxin) 0.125 mg DAILY@13 PO ; Start 01/12/19 at 09:30 NANETTE ALLNE Jan 12, 2019 09:49
[2019-01-12] MEDS ORDERED: DILTIAZEM (CD) 120 MG CAP PO ONE (10:00)
[2019-01-12] MEDS ORDERED: DIGOXIN 0.125 MG TAB PO SCH (13:00)
--- NOTE | 2019-01-12 17:40 | DS ---
Date/Time of Note Date/Time of Note DATE: 01/12/19 TIME: 17:36 Discharge Summary Admission/Discharge Info Admit Date/Time Jan 03, 2019 at 02:50 Discharge Date/Time 01/12/19 Discharge Diagnosis 1. Acute L cerebellar cerebrovascular accident 2. Atrial fibrillation 3. Rheumatic mitral stenosis 4. interatrial cardiac shunt Patient Condition: Stable Consults Cardiology- Dr. Friedman Hx of Present Illness This is a 63-year-old Georgian-speaking female with a history of atrial fibrillation diagnosed in October 2018, was brought in by family members as she "passed out about 2 seconds" this morning. Patient also reported substernal chest discomfort, and headache after she woke up. Patient denied nausea, vomiting, palpitation, numbness, tingling, speech difficulties, vision changes, facial asymmetry, fever, chills, bowel or bladder incontinence. Patient was recently seen in [facility] in October 2018 when she was diagnosed with new onset atrial fibrillation with CHADSVASC= 0, and was sent home with rate control on Cardizem which she was taking. Initial EKG showed atrial fibrillation with heart rate 90. Initial troponin negative. Electrolytes level stable. Chest x-ray stable. CT brain and carotid ultrasound unremarkable. Able vital signs. Hospital Course Patient was admitted for syncopal workup and neurology was consulted after findings of cerebellar stroke on imaging studies. Cardiology was consulted given history of new onset atrial fibrillation and episodes of RVR. On ECHO patient was found to have mitral stenosis believed to be secondary to rheumatic fever as well as interatrial shunt. Recommendations for initiating Warfarin for anticoagulation were made. Neurology cleared patient to initiate anticoagulation 7 days following episode of loss of consciousness due to risk of hemorrhagic conversion. During the course of hospitalization, patient cardiac medications were adjust for better heart rate control, tolerance, and blood pressure stability. Patient was initiated on LMWH and Coumadin bridging and was discharged home in stable condition with instructions to follow up with her PCP in 1 week for INR check. Home Meds Active Scripts Diltiazem Hcl* (Cardizem CD*) 240 Mg Cap.sr.24h, 240 MG PO DAILY for 30 Days, #30 CAP 1 Refill Prov:NEWTON YANEZ MD 01/12/19 Diltiazem Hcl* (Cardizem CD*) 120 Mg Cap.sr.24h, 120 MG PO QHS for 30 Days, #30 CAP 1 Refill Prov:NEWTON YANEZ MD 01/12/19 Digoxin* (Digitek*) 125 Mcg Tablet, 0.125 MG PO DAILY@13 for 30 Days, #30 TAB 1 Refill Prov:NEWTON YANEZ MD 01/12/19 Atorvastatin* (Atorvastatin*) 80 Mg Tablet, 80 MG PO HS for 30 Days, #30 TAB 1 Refill Prov:NEWTON YANEZ MD 01/12/19 Warfarin Sod (Coumadin) 5 Mg Tab, 5 MG PO DAILY@17 for 30 Days, #30 TAB 1 Refill Prov:NEWTON YANEZ MD 01/12/19 Famotidine* (Famotidine*) 20 Mg Tablet, 20 MG PO Q12 for 30 Days, #60 TAB 1 Refill Prov:NEWTON YANEZ MD 01/12/19 Reported Medications Garlic (Garlic) 1 Each Tablet, 1 EACH PO DAILY, TAB 01/02/19 Discontinued Reported Medications Aspirin* (Aspirin* EC) 81 Mg Tablet.dr, 81 MG PO DAILY, TAB 01/02/19 Discontinued Scripts Diltiazem Hcl* (Cardizem CD*) 240 Mg Cap.sr.24h, 240 MG PO DAILY, #30 CAP Prov:TOMMIE ZARAGOZA NP 11/04/18 Follow-up Plan 1. Follow up with your primary care physician in 1 week 2. You will need to have you INR checked in 1 week in order to make sure your blood levels of Warfarin are therapeutic. Continue taking Warfarin 5mg until told otherwise by your primary care physician 3. Continue taking all medications prescribed to help control your heart rate and rhythm 4. It is important to avoid as much as possible the foods that are high in Vitamin K as previously discussed 5. If you fall and hit your head, or experience a bleed that does not stop, please go immediately to the nearest emergency room since you are on a blood thinner and will need medication to reverse the effects of Warfarin 6. Continue taking Famotidine twice a day to help with gastritis symptoms 7. If experiencing any concerning symptoms, please go to your nearest emergency department 8. Per assembler equipment, he recommends getting a referral from your primary care physician to a Cardiothoracic surgeon to assess replacement of your Mitral valve in your heart. It was found to be hardened from previous illness and can be replaced. This is most likely contributing to your atrial fibrillation. 1. Siga con kay mdico de atencin primaria en 1 semana 2. Usted necesitar que le revisen inR en 1 semana con el fin de asegurarse de que joshua niveles en wade de warfarina son teraputicos. Contine tomando Warfarina 5mg hasta que kay mdico de atencin primaria le indique lo contrario 3. Contine tomando todos los medicamentos recetados para ayudar a controlar kay frecuencia cardaca y ritmo 4. Es importante evitar en la medida de lo posible los alimentos que son altos en vitamina K angela se discuti anteriormente 5. Si se y se golpea la ilir, o experimenta un sangrado que no se detiene, vaya inmediatamente a la igor de emergencias ms cercana, ya que est tomando un anticoagulante y necesitar medicamentos para revertir los efectos de la warfarina 6. Contine tomando Famotidina dos veces al da para ayudar con los sntomas de la gastritis 7. Si experimenta algn sntoma preocupante, por favor vaya a kay departamento de emergencias ms cercano 8. Per cardilogo, recomienda obtener kennedi referencia de kay mdico de atencin primaria a un cirujano cardiotorcico para evaluar el reemplazo de kay vlvula mitral en kay corazn. Se encontr que se endureceba de kennedi enfermedad anterior y se puede reemplazar. Lo ms probable es que esto contribuya a la fibrilacin auricular. Primary Care Provider Not On Staff Doctor Time spent on discharge: > 30 minutes Pending Labs Laboratory Tests Test 01/12/19 05:15 Prothrombin Time 27.4 Sec (11.9-14.9) Prothrombin Time Ratio 2.1 INR International Normalized Ratio 2.54 NEWTON YANEZ MD Jan 12, 2019 17:40
[2019-01-12] MEDS: WARFARIN 5 MG TAB PO SCH (18:58)
[2019-01-12] MEDS ORDERED: DILTIAZEM (CD) 120 MG CAP PO SCH (21:00)
[2019-01-13] MEDS ORDERED: DILTIAZEM (CD) 240 MG CAP PO SCH (09:00)
== END 2019-01-12 19:10 | disposition home or self-care (01) | DRG 65 ==
LOC: E/R 18:58 → 6WM 01-03 02:50
PROVIDERS: ADMIT Hospitalist; ATTEND Internal Medicine
DX: I63.9 Cerebral infarction, unspecified (principal); Q21.1 Atrial septal defect; I05.0 Rheumatic mitral stenosis; I48.2 Chronic atrial fibrillation; D64.9 Anemia, unspecified; Z79.01 Long term (current) use of anticoagulants
CPT/HCPCS: 36415; 70450; 70496; 70498; 70551; 71045; 80048; 80053; 80061; 81001; 82728; 83036; 83540; 83690; 83735; 84100; 84439; 84443; 84484; 85025; 85610; 85651; 86592; 87086; 93005; 93306; 93880; 96374; 97110; 97116; 97163; 97165; 97530; 97535; J1644; J2405; J7030; Q9967